=== PATIENT | male | born 1960 | race Caucasian/White ===

== ENCOUNTER 2023-09-20 14:09 | Inpatient (IN) | payer MEDICARE, SELFPAY ==
--- NOTE | ~2023-09-20 | CT_ITS ---
EXAMINATION: CT ANGIOGRAM HEAD CT ANGIOGRAM NECK CLINICAL INFORMATION: Reason for Exam right sided weakness COMPARISON: Same-day CT head TECHNIQUE: Initial noncontrast vp director of creative strategy imaging of the head and neck was performed. Comparison is made with noncontrast head CT from earlier today. Test bolus sequences followed by intravenous administration 70 mL of Omnipaque 350. Helical imaging was performed in the axial plane from the aortic arch to the skull vertex. Delayed postcontrast imaging of the head was also performed. The data was processed at the manufacturing technologist's workstation for generation of MIP sequences. Angled MIPs and volume rendered reformatted images were also generated at an offline 3D workstation. Stenoses are assessed in accordance with Chen et al. Quantification of Carotid Stenosis on CT Angiography. AJR 2006. 27(1):13-19. This CT examination was performed using dose optimization techniques as appropriate, variously including the following: *Automated exposure control *Adjustment of mA and/or kV according to patient size (this includes techniques or standardized protocols for targeted exams where dose is matched to indication/reason for exam; i.e. extremities or head) *Use of iterative reconstruction technique DLP: 1640.28 mGy-cm mGy-cm FINDINGS: CT HEAD: No abnormal intracranial enhancement. Please see separately dictated CT scan head for full intracranial findings. CTA HEAD: Diffuse mild ectasia and tortuosity. Anterior circulation: Right internal carotid artery: No hemodynamically significant stenosis. Right middle cerebral artery: No hemodynamically significant stenosis. Right anterior cerebral artery: Diminutive A1 segment. Left internal carotid artery: No hemodynamically significant stenosis. Left middle cerebral artery: No hemodynamically significant stenosis. Left anterior cerebral artery: No hemodynamically significant stenosis. Posterior circulation: Right vertebral artery: No hemodynamically significant stenosis. Left vertebral artery: No hemodynamically significant stenosis. Basilar artery: No hemodynamically significant stenosis. Right posterior cerebral artery: No hemodynamically significant stenosis. Left posterior cerebral artery: No hemodynamically significant stenosis. No high flow vascular malformation or significant aneurysmal dilatation is visualized. The major dural venous sinuses are grossly within normal limits given arterial technique. CTA NECK: Aortic arch: Normal anatomy. Tortuosity and ectasia of the great vessel origins. Right common carotid artery: Motion degraded. Right proximal internal carotid artery: No hemodynamically significant stenosis. Right mid/distal internal carotid artery: Motion degraded. No definite flow-limiting stenosis. Left common carotid artery: Motion degraded. Left proximal internal carotid artery: Motion degraded. Short segment retropharyngeal course. Left mid/distal internal carotid artery: No hemodynamically significant stenosis. Right vertebral artery: Portions of the V1 and V2 segment are not well evaluated given motion. The nondegraded aspects are patent. Left vertebral artery: Portions of the V1 and V2 segments are not well evaluated given motion. The nondegraded aspects are patent. 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 Multilevel degenerative changes of cervical spine with at least moderate canal stenosis at C5-C6 and C6-C7. CT/CT angio head neck stroke IMPRESSION: CTA NECK: Suboptimal evaluation of portions of the cervical carotid and vertebral artery secondary to motion degradation. Preserved flow extending intracranially. No flow-limiting stenosis in the by degraded aspects of the cervical vasculature. Multilevel degenerative changes of cervical spine with areas of at least moderate canal stenosis at C5-C6 and C6-C7. If there is symptomatology referrable to this region, cervical spine MRI is recommended for further evaluation. CTA HEAD: No proximal vessel occlusion or high-grade stenosis. This critical result was discussed with Dr. Hawthorne at 3:15 PM hours on 09/20/2023. It was ascertained that the content and urgency of the report was understood at the time of direct communication.
--- NOTE | ~2023-09-20 | XR_ITS ---
EXAMINATION: XR CHEST 2:39 PM CLINICAL INFORMATION: Right-sided weakness COMPARISON: None available. TECHNIQUE: AP portable upright view of the chest was obtained. FINDINGS: No significant abnormality is noted involving the heart, lungs, mediastinum, bony thorax or soft tissues. XR/XR chest 1V IMPRESSION: Grossly clear chest x-ray
--- NOTE | ~2023-09-20 | CT_ITS ---
EXAMINATION: CT HEAD WITHOUT CONTRAST (STROKE PROTOCOL) CLINICAL INFORMATION: Stroke protocol. Right-sided weakness. COMPARISON: None available. TECHNIQUE: Contiguous axial imaging was performed from the skull base to vertex without intravenous administration of contrast. This CT examination was performed using dose optimization techniques as appropriate, variously including the following: *Automated exposure control *Adjustment of mA and/or kV according to patient size (this includes techniques or standardized protocols for targeted exams where dose is matched to indication/reason for exam; i.e. extremities or head) *Use of iterative reconstruction technique DLP: 826 mGy-cm FINDINGS: No acute intracranial hemorrhage. No mass effect or midline shift. No parenchymal lesion. The weinstein-white differentiation is maintained. No extra-axial fluid collection. Symmetric mild hyperdensity within the basilar vessels without asymmetric density or clear dense MCA sign. The ventricles and sulci are unremarkable. The basal cisterns are patent. The calvarium is intact. The visualized paranasal sinuses and mastoid air cells are clear. CT/CT head for stroke IMPRESSION: No acute intracranial hemorrhage or mass effect. This critical result was discussed with Dr. Hawthorne at 2:37 PM hours on 09/20/2023. It was ascertained that the content and urgency of the report was understood at the time of direct communication.
--- NOTE | 2023-09-20 14:15 | ECG_ITS ---
Test Reason : ?STROKE Blood Pressure : / mmHG Vent. Rate : 077 BPM Atrial Rate : 077 BPM P-R Int : 222 ms QRS Dur : 150 ms QT Int : 448 ms P-R-T Axes : 016 -57 084 degrees QTc Int : 506 ms Sinus rhythm with 1st degree A-V block with occasional Premature ventricular complexes Left axis deviation Left ventricular hypertrophy with QRS widening and repolarization abnormality ( R in aVL , Daryn product , Romhilt-Camargo ) Abnormal ECG No previous ECGs available Referred By: Demetria Hawthorne Electronically Signed By:GIACOMO DIAMOND
--- NOTE | 2023-09-20 14:19 | ED_ITS ---
HPI - Neuro Symptoms/Deficit General Chief Complaint: Stroke Stated Complaint: STROKE LIKE SYMPTOMS Time Seen by Provider: 09/20/23 14:14 History of Present Illness HPI Narrative: Patient is a 63-year-old male with no significant past medical record here at [facility]. Patient admits to drinking alcohol today. Was noted by family to have slurred speech. Also had right-sided facial droop. Last time patient was unknown. Patient was found half an hour ago. There is no chest pain. No shortness of breath. No diaphoresis. Has bilateral leg weakness. Has a history of diabetes. Patient's sugar was checked to be over 100. Patient denies any fever chills. No coughing or congestion or upper respiratory symptoms. No diaphoresis. Related Data Allergies Allergy/AdvReac Type Severity Reaction Status Date / Time No Known Allergies Allergy Verified 09/20/23 14:40 Review of Systems 2 Review of Systems: Positive right-sided weakness positive slight slurred speech Yes all other systems are reviewed and are negative [facility] Past Medical History Attestation statement: The following information was validated with the patient. Source: unable to obtain Social History Social History Alcohol intake: current Alcohol intake frequency: 3 or more drinks per day Alcohol type: beer and hard liquor Smoked in Last 30 Days: No Use of substances other than those prescribed or required for medical reasons: No Advance Directives: No Advance Directives Information Provided: No Physical Exam 2 Vital Signs: Vital Signs: Last Vital Signs Temp 97.9 F 09/20/23 15:15 Pulse 67 09/20/23 15:15 Resp 16 09/20/23 15:15 BP 149/75 H 09/20/23 15:15 Pulse Ox 95 09/20/23 15:15 O2 Del Method Nasal Cannula 09/20/23 15:15 O2 Flow Rate 2 09/20/23 15:15 BMI result Body Mass Index 37.2 Appearance: Alert. No acute distress. Eyes: Pupils equal, round and reactive to light. ENT: Pharynx normal. Neck: Normal inspection. Neck supple. No lymph nodes noted. No crepitus CVS: Normal heart rate and rhythm. Pulses normal. Normal S1 and S2 Respiratory: No respiratory distress. Breath sounds normal. No Wheezing. No rales Abdomen: Soft and nontender. No rigidity. No distention. good BS x4 Skin: Skin warm and dry. Normal skin color. Normal skin turgor. Extremities: No lower extremity edema. Neurovascular intact to all extremities. No Lacerations. No Rash Neuro: Oriented X 3. Slightly slurred speech. There is no drift noted. Strength are equal bilateral upper extremity. [id number] intact. Bilateral lower extremities weak. There is no appreciable facial droop noted. Medications Administered Discontinued Medications Generic Name Dose Route Start Last Admin Trade Name Connie PRN Reason Stop Dose Admin Iohexol 70 ml 09/20/23 14:43 09/20/23 14:43 Iohexol 350 Mg/Ml 100 Ml Infus..Btl IV 09/20/23 14:44 70 ml ONCE ONE Administration Medical Decision Making Medical Decision Making [facility] Narrative: Patient 63 years old status presents today with having drank some alcohol. Was noted by family to be slurred. Unsure as to the exact last known well time. Was found approximately half an hour prior. Patient was noted by EMS to have a slight drift on the right side. A my exam the upper extremities are equal. There has no facial droop noted. Patient's bilateral lower extremity was weak. Patient's sugar was normal there is no evidence for hypoglycemia. I reviewed patient's CT scan of the head which was grossly negative for any acute evidence of bleeding. I discussed the CT scan results with the radiologist. He reported the CT scan was grossly negative for bleeding. CTA of the head and neck is still pending. I attempted to contact patient's family to verify the last known well time. The phone number that is in the system is patient's sister Ms. Singleton it is out of service. At 03:20 p.m. patient's case discussed with the radiologist. CTA showed no large vessel occlusion. Still no family showed up there is no additional phone number that is available. Did not feel patient is a good candidate for tPA as we do not have a specific time of onset. Patient is not a candidate clot retrieval as there is no large vessel occlusion. Currently in stable condition. Patient's alcohol level came back at 180 on re-examination patient grossly shows facial symmetry. There has no drift. Question TIA versus just EtOH. Case discussed with hospitalist. Will admit for observation overnight. Differential Diagnosis Differential Diagnoses: The differential diagnosis associated with the presentation includes Alcohol intoxication, TIA Admission/Observation Consideration of admission/observation: Escalation of care including admission/observation considered Consult Healthcare Provider Management of the patient was discussed with: Hospitalist Lab Data MDM Lab Attestation statement: I reviewed the patient's lab results. 09/20/23 15:13 09/20/23 15:13 Labs: Lab Results 09/20/23 09/20/23 09/20/23 Range/Units 14:16 14:43 15:13 WBC 9.6 (4.8-10.8) X10*3/uL RBC 4.98 (4.60-5.80) X10*6/uL Hgb 14.7 (14.0-18.0) g/dl Hct 43.8 (42.0-52.0) % MCV 88.0 (80.0-98.0) fL MCH 29.5 (27.0-33.0) pg MCHC 33.6 (31.0-36.0) g/dl RDW 13.7 (11.0-16.0) % Plt Count 205 (160-400) X10*3/uL MPV 10.3 (9.4-12.4) fL Immature Gran % (Auto) 0.7 H (0.0-0.4) % Neut % (Auto) 68.4 (45-73) % Lymph % (Auto) 21.5 (20-40) % [place] % (Auto) 5.6 (2-11) % Eos % (Auto) 2.8 (0-4) % Baso % (Auto) 1.0 (0-2) % Lymph # (Auto) 2.1 (1.2-4.9) X10*3/uL [place] # (Auto) 0.5 (0.1-1.2) X10*3/uL Eos # (Auto) 0.3 (0.0-0.4) X10*3/uL Baso # (Auto) 0.1 (0.0-0.2) X10*3/uL Abs Immat Gran (auto) 0.07 H (0.00-0.03) X10*3/uL Absolute Neuts (auto) 6.5 (2.0-8.3) x10*3/uL Absolute Nucleated RBC 0.000 (0.0-0.012) X10*3/uL Nucleated RBC % (auto) 0.0 (0.0-0.2) /100WBC PT 12.4 (11.1-13.3) SEC Whole Blood PT 14.2 H (11.1-13.5) sec INR 1.0 (0.9-1.1) Whole Blood INR 1.0 (0.9-1.1) APTT 30.6 (26.0-36.8) SEC Sodium 138 (135-145) mmol/L Potassium 4.7 (3.3-5.1) mmol/L Chloride 104 (96-108) mmol/L Carbon Dioxide 23 (22-29) mmol/L Anion Gap 16 (12-20) BUN 12 (9-16) mg/dL Creatinine 0.84 (0.5-1.4) mg/dL Estim Creat Clear Calc 128.0 Estimated GFR > 60 POC Glucose 122 H (60-115) mg/dL Random Glucose 120 H (60-115) mg/dL Calcium 9.1 (8.4-10.2) mg/dL Phosphorus 2.8 (2.7-4.5) mg/dL Magnesium 2.2 (1.6-2.6) mg/dL Total Creatine Kinase 190 H (38-174) U/L Troponin I High Sens 6.9 (<3.5-35.0) ng/L Urine Color Yellow Urine Appearance Clear Urine pH 5.5 (5.0-9.0) Ur Specific [place] 1.010 (1.005-1.025) Urine Protein Negative (Neg-Trace) mg/dL Urine Glucose (UA) Negative (Negative) mg/dL Urine Ketones Negative (Negative) mg/dL Urine Blood Negative (Negative) Urine Nitrite Negative (Negative) Ur Leukocyte Esterase Negative (Negative) Urine Opiates Screen Not Detected (Not Detect) Urine Fentanyl Screen Not Detected (Not Detect) Ur Barbiturates Screen Not Detected (Not Detect) Ur Phencyclidine Scrn Not Detected (Not Detect) Ur Amphetamines Screen Not Detected (Not Detect) U Benzodiazepines Scrn Not Detected (Not Detect) Urine Cocaine Screen Not Detected (Not Detect) U Marijuana (THC) Screen Not Detected (Not Detect) Ethyl Alcohol 182 mg/dL Independent Interpretation I performed an independent interpretation of an: EKG (Sinus heart rate is 80) and CT Scan (CT scan of the head was grossly negative for any acute evidence of bleeding) Radiology Impression Discussion of test interpretation with radiology: I discussed test interpretation with the radiologist Radiologist Impression: I discussed with the radiology's about the CT head and CTA findings. Independent Historian Clinical information obtained from an independent historian. History obtained from or confirmed by: EMS NIH Stroke Scale Internal: Other Time: 14:22 Level of Consciousness: Alert Level of Consciousness Questions: Answers both questions correctly Level of Consciousness Commands: Performs both tasks correctly Best Gaze: Normal Visual: No visual loss Facial Palsy: Normal Motor Arm (Right): No drift Motor Arm (Left): No drift Motor Leg (Right): Some effort against gravity Motor Leg (Left): Some effort against gravity Limb Ataxia: Absent Sensory: Normal Best Language: No aphasia Dysarthia: Normal Extinction and Inattention: No abnormality Score: 4 Discharge Plan Discharge Clinical Impression: Transient cerebral ischemia, Alcohol intoxication Patient Disposition: Admitted As Inpatient
[2023-09-20 14:20] LABS: Glucose, Whole Blood 122 mg/dL (60-115)
[2023-09-20 14:40] VITALS: BP 142/98; BP 149/81; PULSE 75; PULSE 94; RESP 16; TEMP 36.9; O2SAT 91; O2SAT 95; BMI 37.2
--- NOTE | 2023-09-20 14:40 | PC.NURSE ---
patsya from home d/t stroke alert. 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 +right sided weakness, +pronator drift, decreased sensation in right side. pt's family states slurred speech and that he also had 3 beers prior to coming in. pt denies dizziness/lightheadedness/headache/change in vision. pt to CT upon ED arrival. 20gIV placed in the right AC for CTA to be completed. plan of care ongoing.
[2023-09-20] MEDS: iohexoL 350 MG/ML 100 ML INFUS..BTL 70 ML IV (14:43)
[2023-09-20 14:47] LABS: Prothrombin Time Whole Bld POC 14.2 sec (11.1-13.5)
[2023-09-20 15:15] VITALS: BP 149/75; PULSE 67; RESP 16; TEMP 36.6; O2SAT 95
--- NOTE | 2023-09-20 15:17 | PC.NURSE ---
pt returned from CT at this time. pt incontinent of urine. pt cleaned/fresh pads applied. pt changed into hospital attire. vss and up to date. 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 20gIV placed in the left hand - labs/urine obtained and sent to lab. ekg performed by tech. pt placed on 2L via NC - resting at 95%. no sob/wob noted. pt seemingly sleepy. continuously falling asleep/snoring. pt easily arousable to verbal stimuli. cms intact. face symmetrical. slight slur in speech noted when conversating w/ pt. 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 pronator drift no longer present. strength equal bilaterally. pt passed nursing swallow eval w/o any difficulty. plan of care ongoing at this time. call orona placed within reach.
[2023-09-20 15:22] LABS: MANUAL DIFF FLAG NO
[2023-09-20 15:24] LABS: Appearance Urine Clear; Color Urine Yellow; Glucose Urine UA Negative (Negative); Leukocyte Esterase Urine Negative (Negative); Nitrite Urine Negative (Negative); PH 5.5 (5.0-9.0); Urine Blood Negative (Negative); Urine Ketones Negative (Negative); Urine Protein Negative (Neg-Trace)
[2023-09-20 15:32] LABS: Basophils Absolute Auto 0.1 X10*3/uL (0.0-0.2); Eosinophils Absolute Auto 0.3 X10*3/uL (0.0-0.4); Eosinophils Percent Auto 2.8 % (0-4); Hematocrit 43.8 % (42.0-52.0); Hemoglobin 14.7 g/dl (14.0-18.0); Imm Gran Abs Auto 0.07 X10*3/uL (0.00-0.03); Imm Gran Pct Auto 0.7 % (0.0-0.4); Lymphocytes Absolute Auto 2.1 X10*3/uL (1.2-4.9); Lymphocytes Percent Auto 21.5 % (20-40); Mean Corpuscular HGB Conc 33.6 g/dl (31.0-36.0); Mean Corpuscular Hemoglobin 29.5 pg (27.0-33.0); Mean Platelet Volume 10.3 fL (9.4-12.4); Monocytes Absolute Auto 0.5 X10*3/uL (0.1-1.2); Monocytes Percent Auto 5.6 % (2-11); Neutrophils Absolute Auto 6.5 x10*3/uL (2.0-8.3); Neutrophils Percent Auto 68.4 % (45-73); Platelet Count 205 X10*3/uL (160-400); Red Blood Count 4.98 X10*6/uL (4.60-5.80); Red Cell Distribution Width 13.7 % (11.0-16.0); White Blood Count 9.6 X10*3/uL (4.8-10.8)
[2023-09-20 15:33] LABS: Prothrombin Time 12.4 SEC (11.1-13.3)
[2023-09-20 15:35] LABS: Partial Thromboplastin Time 30.6 SEC (26.0-36.8)
[2023-09-20 15:39] LABS: Amphetamine Screen Urine Not Detected (Not Detect); Barbiturates, Urine Not Detected (Not Detect); Benzodiazepines Screen Urine Not Detected (Not Detect); Cannabinoid Screen Urine Not Detected (Not Detect); Cocaine Screen Urine Not Detected (Not Detect); Fentanyl, urine Not Detected (Not Detect); Opiate Screen Urine Not Detected (Not Detect); Phencyclidine Screen Urine Not Detected (Not Detect)
[2023-09-20 15:46] LABS: Anion Gap 16 (12-20); Blood Urea Nitrogen 12 mg/dL (9-16); Calcium 9.1 mg/dL (8.4-10.2); Carbon Dioxide 23 mmol/L (22-29); Chloride 104 mmol/L (96-108); Estimated Glomerular Filt Rate > 60; Ethanol 182 mg/dL; Glucose Random 120 mg/dL (60-115); Magnesium 2.2 mg/dL (1.6-2.6); Phosphorus 2.8 mg/dL (2.7-4.5); Potassium 4.7 mmol/L (3.3-5.1); Sodium 138 mmol/L (135-145)
[2023-09-20 15:49] LABS: Troponin-I High Sensitivity 6.9 ng/L (<3.5-35.0)
[2023-09-20 16:15] VITALS: BP 141/65; PULSE 70; RESP 23; TEMP 37; O2SAT 95
[2023-09-20 16:46] LABS: Stroke Lab Use COMPLETE
--- NOTE | 2023-09-20 16:49 | PC.NURSE ---
pt and family member spoke w/ hospitalist in regards to future plans. pt aware of plans going forward in regards to be admitted. resting comfortably in no apparent distress. respirations remain even and unlabored. family bedside for support. call orona placed within reach.
--- NOTE | 2023-09-20 17:00 | P.HPHOSP_ITS ---
History of Present Illness Date of Service: 09/20/23 Attending physician on admission: Antonino Hawley Chief Complaint: ams, right arm weakness, slurred speech 63 year old male with PILY noncompliant with cpap and alcohol use disorder presented to the ED via EMS for evaluation of altered mental status, R sided weakness, R facial droop, slurred speech. Last known well time unclear. Pt does not recall events. 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 He does have ongoing RUE weakness. His nephew is at bedside and reports one of his tenants went to check on the patient and he was found altered and called EMS. Per EMS, focal deficits as above reported. No prior history of CVA. On arrival, VSS, slightly hypertensive to 141/65 on admission. Hematology studies unremarkable. Renal function and electrolyte levels normal. Glucose 122. Troponin 6.9. Total CK 190. Urinalysis unremarkable. Urine tox screen negative. Ethyl alcohol level 182. CXR unremarkable. Head CT negative for any acute intracranial abnormality. CTA head/neck negative for any hemodynamically significant stenosis or large vessel occlusion. EKG shows sinus rhythm, rate 77 with first-degree AV rasheed block and occasional PVCs, no ST or depressions. Review of Systems 2 Review of Systems: General: No fevers, malaise, unintentional weight loss HEENT: No blurred vision, diplopia. No sore throat, nasal congestion, rhinorrhea, sinus pain, ear pain Cardiovascular: No chest pain, palpitations, or leg edema Respiratory: No shortness of breath, wheezing, cough GI: No abdominal pain, nausea, vomiting, diarrhea, constipation, melena, hematochezia : No dysuria, hematuria, increased urinary frequency, decreased urinary output MSK: No myalgia, back pain Neuro: No headaches, weakness, paresthesias Skin: No rashes or lesions [facility] Medical History (Updated 09/20/23 @ 17:26 by MIRANDA Haas) Alcohol use disorder Severe obesity PILY (obstructive sleep apnea) Social History Alcohol intake: current Alcohol intake frequency: 3 or more drinks per day Alcohol type: beer and hard liquor Patient Tobacco Use Status: Never used Tobacco Meds Allergies Allergy/AdvReac Type Severity Reaction Status Date / Time No Known Allergies Allergy Verified 09/20/23 14:40 Home Medications Medication Instructions Recorded Confirmed Last Taken Type acetaminophen 500 mg tablet 1,000 mg PO BID PRN Fever Or Pain 09/20/23 09/20/23 Unknown History Physical Exam 2 Vital Signs and Narrative: Vital Signs: Last Vital Signs Temp 98.6 F 09/20/23 16:15 Pulse 70 09/20/23 16:15 Resp 23 H 09/20/23 16:15 BP 141/65 H 09/20/23 16:15 Pulse Ox 95 09/20/23 16:15 O2 Del Method Nasal Cannula 09/20/23 16:15 O2 Flow Rate 2 09/20/23 16:15 BMI result Body Mass Index 37.2 Constitutional - Awake and Alert, No apparent distress Eyes - PERRLA, EOMI Cardiovascular - S1S2, RRR, No edema Respiratory - Normal lung expansion, Normal respiratory effort, No respiratory distress, CTA bilaterally Gastrointestinal - NT / ND; +BS; No rebound or guarding Extremities - no calf tenderness bilaterally, no swelling Skin - Warm/Dry Neurological - Alert & oriented x3, CN II-XII in tact, 3/5 strength RUE. 5/5 strength LUE and BLE, +slight R pronator drift. 2+ patellar reflexes, downgoing babinski Psychological - Appropriate affect Results Labs 09/20/23 15:13 09/20/23 15:13 Labs: Laboratory Results - last 24 hr 09/20/23 09/20/23 09/20/23 14:16 14:43 15:13 MCV 88.0 MCH 29.5 MCHC 33.6 RDW 13.7 Plt Count 205 MPV 10.3 Immature Gran % (Auto) 0.7 H Neut % (Auto) 68.4 Lymph % (Auto) 21.5 [place] % (Auto) 5.6 Eos % (Auto) 2.8 Baso % (Auto) 1.0 Lymph # (Auto) 2.1 [place] # (Auto) 0.5 Eos # (Auto) 0.3 Baso # (Auto) 0.1 Abs Immat Gran (auto) 0.07 H Absolute Neuts (auto) 6.5 Absolute Nucleated RBC 0.000 Nucleated RBC % (auto) 0.0 PT 12.4 Whole Blood PT 14.2 H INR 1.0 Whole Blood INR 1.0 APTT 30.6 Anion Gap 16 Estim Creat Clear Calc 128.0 Estimated GFR > 60 POC Glucose 122 H Random Glucose 120 H Calcium 9.1 Phosphorus 2.8 Magnesium 2.2 Total Creatine Kinase 190 H Troponin I High Sens 6.9 Urine Color Yellow Urine Appearance Clear Urine pH 5.5 Ur Specific [place] 1.010 Urine Protein Negative Urine Glucose (UA) Negative Urine Ketones Negative Urine Blood Negative Urine Nitrite Negative Ur Leukocyte Esterase Negative Urine Opiates Screen Not Detected Urine Fentanyl Screen Not Detected Ur Barbiturates Screen Not Detected Ur Phencyclidine Scrn Not Detected Ur Amphetamines Screen Not Detected U Benzodiazepines Scrn Not Detected Urine Cocaine Screen Not Detected U Marijuana (THC) Screen Not Detected Ethyl Alcohol 182 Imaging Radiologist's Impressions: Impressions Head CT 09/20/23 14:25 IMPRESSION: No acute intracranial hemorrhage or mass effect. This critical result was discussed with Dr. Hawthorne at 2:37 PM hours on 09/20/2023. It was ascertained that the content and urgency of the report was understood at the time of direct communication. Head/Neck CTA 09/20/23 14:52 IMPRESSION: CTA NECK: Suboptimal evaluation of portions of the cervical carotid and vertebral artery secondary to motion degradation. Preserved flow extending intracranially. No flow-limiting stenosis in the by degraded aspects of the cervical vasculature. Multilevel degenerative changes of cervical spine with areas of at least moderate canal stenosis at C5-C6 and C6-C7. If there is symptomatology referrable to this region, cervical spine MRI is recommended for further evaluation. CTA HEAD: No proximal vessel occlusion or high-grade stenosis. This critical result was discussed with Dr. Hawthorne at 3:15 PM hours on 09/20/2023. It was ascertained that the content and urgency of the report was understood at the time of direct communication. Chest X-Ray 09/20/23 14:54 IMPRESSION: Grossly clear chest x-ray Assessment and Plan (1) CVA (cerebral vascular accident): Status: Acute (2) Alcohol intoxication: Status: Acute Plan 63 year old male with PILY noncompliant with cpap and alcohol use disorder admitted for CVA #Acute CVA -Head CT negative for acute intracranial abnormality. CTA head/neck negative for LVO or hemodynamically significnat stenosis -Ongoing RUE weakness/pronator drift. Certain LKWT unknown. Not a TNK candidate -MRI brain ordered -asa 324mg now, 81mg asa daily -lipid profile pending, atorvastatin 80mg daily -check hgb a1c -passed bedside swallow eval. stroke edu -neuro consult -monitor on tele #Alcohol use disorder with acute intoxication -ethyl etoh 182 -monitor on ciwa, initiate phenobarb per protocol if scoring on ciwa -thiamine, folic acid -addiction consult #PILY -counseled on importance of cpap for stroke prevention #Severe obesity with BMI >37 -weight loss efforts encouraged dvt prophylaxis- heparin full code pt requires inpt stay due to acute cva with ongoing focal deficits requiring close neurological monitoring, further imaging, and expert consultation Quality Stroke Does the patient have a stroke diagnosis?: Yes Reason for No Anti-thrombotic by Day Two: Not indicated VTE Prior VTE?: No VTE Risk Level:: Medical - moderate - high VTE Device Contraindication: Treatment Not Indicated VTE Drug Contraindication: N/A - Med Ordered
--- NOTE | 2023-09-20 17:02 | PHA.MEDREC ---
Pharmacy Consult ? Medication Reconciliation Pharmacy has completed the medication reconciliation.
[2023-09-20 17:16] LABS: Cholesterol 157 mg/dL (<200); HDL Cholesterol 42 mg/dL (>40); LDL Cholesterol Calculated 74 mg/dL (<100); Triglycerides 209 mg/dL (<150)
[2023-09-20 17:38] VITALS: BP 149/83; PULSE 65; RESP 16; TEMP 37.1; O2SAT 94
[2023-09-20] MEDS: Folic Acid 1 MG TABLET PO (17:42)
[2023-09-20] MEDS: Aspirin 325 MG TABLET PO (17:42)
[2023-09-20] MEDS: Thiamine HCL 100 MG in 0.9 % Sodium Chloride 100 ML 202 MG IV (17:43)
[2023-09-20] MEDS: Heparin Sodium,Porcine 5,000 UNIT/ML VIAL 5000 UNIT SUBCUT (17:43)
--- NOTE | 2023-09-20 17:49 | PC.NURSE ---
vss and up to date. 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 pt denies pain. medication administered per provider order. pt resting comfortably in no apparent distress. pt waiting for bed assignment at this time. call orona placed within reach.
[2023-09-20 23:19] VITALS: BP 170/80; PULSE 75; RESP 19; TEMP 36.7; O2SAT 92
--- NOTE | 2023-09-20 23:32 | PC.NURSE ---
Pt aox4 resting at the bedside. BP 170/80 otherwise stable. Able to follow commands and make needs known. Speech is clear. Reports no pain at this time. Assistance provide to the commode to move the bowels. Stroke pamphlet provided. Monitoring is ongoing.
[2023-09-21] VITALS (7 sets, daily range): BP systolic 115–212; BP diastolic 67–116; PULSE 60–87; RESP 15–20; TEMP 36.8–37.2; O2SAT 93–95
[2023-09-21] MEDS: 0.9 % Sodium Chloride Flush 3 ML SYRINGE IVFLUSH ×3 (03:39→18:20)
[2023-09-21] MEDS: Heparin Sodium,Porcine 5,000 UNIT/ML VIAL 5000 UNIT SUBCUT ×2 (04:08→18:20)
[2023-09-21 05:18] LABS: MANUAL DIFF FLAG NO
[2023-09-21 05:20] LABS: Basophils Absolute Auto 0.1 X10*3/uL (0.0-0.2); Basophils Percent Auto 0.9 % (0-2); Eosinophils Absolute Auto 0.3 X10*3/uL (0.0-0.4); Eosinophils Percent Auto 2.8 % (0-4); Hemoglobin 15.1 g/dl (14.0-18.0); Imm Gran Abs Auto 0.09 X10*3/uL (0.00-0.03); Imm Gran Pct Auto 0.8 % (0.0-0.4); Lymphocytes Absolute Auto 2.4 X10*3/uL (1.2-4.9); Lymphocytes Percent Auto 20.5 % (20-40); Mean Corpuscular HGB Conc 33.6 g/dl (31.0-36.0); Mean Corpuscular Hemoglobin 29.8 pg (27.0-33.0); Mean Corpuscular Volume 88.9 fL (80.0-98.0); Mean Platelet Volume 9.8 fL (9.4-12.4); Platelet Count 187 X10*3/uL (160-400); Red Blood Count 5.06 X10*6/uL (4.60-5.80); Red Cell Distribution Width 14.1 % (11.0-16.0); White Blood Count 11.9 X10*3/uL (4.8-10.8)
[2023-09-21 05:36] LABS: Anion Gap 12 (12-20); Blood Urea Nitrogen 12 mg/dL (9-16); Calcium 9.3 mg/dL (8.4-10.2); Carbon Dioxide 26 mmol/L (22-29); Chloride 107 mmol/L (96-108); Creatinine Clr Calc Pharmacy 131.1; Estimated Glomerular Filt Rate > 60; Glucose Random 101 mg/dL (60-115); Potassium 4.2 mmol/L (3.3-5.1); Sodium 141 mmol/L (135-145)
[2023-09-21 06:56] LABS: Estimated Average Glucose 103 mg/dL; Hemoglobin A1c % 5.2 % (<6.0)
[2023-09-21] MEDS: Aspirin Enteric Coated 81 MG TABLET.DR PO (07:50)
[2023-09-21] MEDS: Atorvastatin Calcium 80 MG TABLET PO (07:50)
[2023-09-21] MEDS: Thiamine HCL 100 MG in 0.9 % Sodium Chloride 100 ML 202 MG IV (07:50)
[2023-09-21] MEDS: Folic Acid 1 MG TABLET PO (07:50)
--- NOTE | 2023-09-21 10:59 | HO.PM.IMPN ---
Subjective Subjective Date of Service: 09/21/23 Interval History: some right shoulder weakness, no withdrawal symptoms Physical Exam Vital Signs: Vital Signs: Last Vital Signs Temp 98.2 F 09/21/23 07:56 Pulse 70 09/21/23 07:56 Resp 15 09/21/23 07:56 BP 115/70 09/21/23 07:56 Pulse Ox 94 09/21/23 07:56 O2 Del Method Room Air 09/21/23 07:56 O2 Flow Rate 2 09/20/23 17:38 BMI result Body Mass Index 37.2 General: AO X 3, no acute distress Resp: CTA bilateral, no accessory muscles used CVS: S1,S2,RRR GI: soft, non tender, non distended Neuro: motor grossly intact, alert Psych: appropriate affect, appropriate insight Objective Data Active Medications Acetaminophen (Acetaminophen 325 Mg Tablet) 650 mg PO Q6H PRN PRN Reason: Pain, Mild (Pain Scale 1-3) Aspirin (Aspirin Enteric Coated 81 Mg Tablet.) 81 mg PO DAILY [facility] Last Admin: 09/21/23 07:50 Dose: 81 mg Documented By: SHANNON Atorvastatin Calcium (Atorvastatin Calcium 80 Mg Tablet) 80 mg PO DAILY [facility] Last Admin: 09/21/23 07:50 Dose: 80 mg Documented By: SHANNON Folic Acid (Folic Acid 1 Mg Tablet) 1 mg PO DAILY [facility] Last Admin: 09/21/23 07:50 Dose: 1 mg Documented By: SHANNON Heparin Sodium (Porcine) (Heparin Sodium,Porcine 5,000 Unit/Ml Vial) 5,000 unit SUBCUT Q12H [facility] Last Admin: 09/21/23 04:08 Dose: 5,000 unit Documented By: MAURI Thiamine HCl 100 mg/ Sodium (Chloride) 101 mls @ 202 mls/hr IV DAILY [facility] Last Infusion: 09/21/23 09:00 Dose: Infused Documented By: SHANNON Ondansetron HCl (Ondansetron Hcl 4 Mg/2 Ml Vial) 4 mg IVPUSH Q8H PRN PRN Reason: Nausea and Vomiting Senna (Sennosides 8.6 Mg Tablet) 17.2 mg PO BEDTIME PRN PRN Reason: Constipation Sodium Chloride (0.9 % Sodium Chloride Flush 3 Ml Syringe) 3 ml IVFLUSH QSHIFT [facility] Last Admin: 09/21/23 07:55 Dose: 3 ml Documented By: SCOC Labs 09/21/23 05:06 09/21/23 05:06 Labs: Laboratory Results - last 24 hr 09/20/23 09/20/23 09/20/23 14:16 14:43 15:13 MCV 88.0 MCH 29.5 MCHC 33.6 RDW 13.7 Plt Count 205 MPV 10.3 Immature Gran % (Auto) 0.7 H Neut % (Auto) 68.4 Lymph % (Auto) 21.5 [place] % (Auto) 5.6 Eos % (Auto) 2.8 Baso % (Auto) 1.0 Lymph # (Auto) 2.1 [place] # (Auto) 0.5 Eos # (Auto) 0.3 Baso # (Auto) 0.1 Abs Immat Gran (auto) 0.07 H Absolute Neuts (auto) 6.5 Absolute Nucleated RBC 0.000 Nucleated RBC % (auto) 0.0 PT 12.4 Whole Blood PT 14.2 H INR 1.0 Whole Blood INR 1.0 APTT 30.6 Anion Gap 16 Estim Creat Clear Calc 128.0 Estimated GFR > 60 POC Glucose 122 H Random Glucose 120 H Estimat Average Glucose 103 Hemoglobin A1c % 5.2 Calcium 9.1 Phosphorus 2.8 Magnesium 2.2 Total Creatine Kinase 190 H Troponin I High Sens 6.9 Triglycerides 209 H Cholesterol 157 LDL Cholesterol, Calc 74 HDL Cholesterol 42 Urine Color Yellow Urine Appearance Clear Urine pH 5.5 Ur Specific [place] 1.010 Urine Protein Negative Urine Glucose (UA) Negative Urine Ketones Negative Urine Blood Negative Urine Nitrite Negative Ur Leukocyte Esterase Negative Urine Opiates Screen Not Detected Urine Fentanyl Screen Not Detected Ur Barbiturates Screen Not Detected Ur Phencyclidine Scrn Not Detected Ur Amphetamines Screen Not Detected U Benzodiazepines Scrn Not Detected Urine Cocaine Screen Not Detected U Marijuana (THC) Screen Not Detected Ethyl Alcohol 182 09/21/23 05:06 MCV 88.9 MCH 29.8 MCHC 33.6 RDW 14.1 Plt Count 187 MPV 9.8 Immature Gran % (Auto) 0.8 H Neut % (Auto) 67.0 Lymph % (Auto) 20.5 [place] % (Auto) 8.0 Eos % (Auto) 2.8 Baso % (Auto) 0.9 Lymph # (Auto) 2.4 [place] # (Auto) 1.0 Eos # (Auto) 0.3 Baso # (Auto) 0.1 Abs Immat Gran (auto) 0.09 H Absolute Neuts (auto) 8.0 Absolute Nucleated RBC 0.000 Nucleated RBC % (auto) 0.0 PT Whole Blood PT INR Whole Blood INR APTT Anion Gap 12 Estim Creat Clear Calc 131.1 Estimated GFR > 60 POC Glucose Random Glucose 101 Estimat Average Glucose Hemoglobin A1c % Calcium 9.3 Phosphorus Magnesium Total Creatine Kinase Troponin I High Sens Triglycerides Cholesterol LDL Cholesterol, Calc HDL Cholesterol Urine Color Urine Appearance Urine pH Ur Specific [place] Urine Protein Urine Glucose (UA) Urine Ketones Urine Blood Urine Nitrite Ur Leukocyte Esterase Urine Opiates Screen Urine Fentanyl Screen Ur Barbiturates Screen Ur Phencyclidine Scrn Ur Amphetamines Screen U Benzodiazepines Scrn Urine Cocaine Screen U Marijuana (THC) Screen Ethyl Alcohol Assessment and Plan (1) CVA (cerebral vascular accident): Status: Acute Plan 63M PMH ania non complliant, obesity, etoh dependence presented wiht right sided weakness right sided weakness rule out dva folllow up mri, neuro etoh dependence ciwa ania non complaint obesity wegiht loss dvt prophylaxis - hep sq full code reason for continued hospitalization: awaiting mri Quality Stroke Does the patient have a stroke diagnosis?: Yes Reason for No Anti-thrombotic by Day Two: Not indicated VTE Prior VTE?: No VTE Risk Level:: Medical - moderate - high VTE Device Contraindication: Treatment Not Indicated VTE Drug Contraindication: N/A - Med Ordered
--- NOTE | 2023-09-21 11:37 | PC.NURSE ---
pt to mri via stretcher.
--- NOTE | 2023-09-21 11:55 | P.DS_ITS ---
DS: Providers Provider Date of Service: 09/22/23 Date of admission: 09/20/23 16:46 Primary care physician: None Physician Consults: 09/20/23 16:57 Consult to Neurology Routine Consulting Provider: [facility] Reason for consultation: cva 09/20/23 17:27 Addiction Medicine Routine Consulting Provider: Addiction Covering Reason for consultation: etoh use d/o DS: Diagnosis Discharge Diagnosis (1) CVA (cerebral vascular accident): Status: Acute DS: Summary Hospital Course Hospital Course: from initial hpi: 63 year old male with PILY noncompliant with cpap and alcohol use disorder presented to the ED via EMS for evaluation of altered mental status, R sided weakness, R facial droop, slurred speech. Last known well time unclear. Pt does not recall events. 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 He does have ongoing RUE weakness. His nephew is at bedside and reports one of his tenants went to check on the patient and he was found altered and called EMS. Per EMS, focal deficits as above reported. No prior history of CVA. On arrival, VSS, slightly hypertensive to 141/65 on admission. Hematology studies unremarkable. Renal function and electrolyte levels normal. Glucose 122. Troponin 6.9. Total CK 190. Urinalysis unremarkable. Urine tox screen negative. Ethyl alcohol level 182. CXR unremarkable. Head CT negative for any acute intracranial abnormality. CTA head/neck negative for any hemodynamically significant stenosis or large vessel occlusion. EKG shows sinus rhythm, rate 77 with first-degree AV rasheed block and occasional PVCs, no ST or depressions. hospital course: Patient was admitted for right sided weakness to rule out CVA. CTA head and neck was unremarkable. He was started on aspirin statin. Plan was for MRI brain, however, patient refused. He was not interested in premedication prior to test. He will be referred for MRI brain as outpatient. For alcohol dependence patient did not demonstrate any withdrawal, abstinence is recommended. For PILY patient is noncompliant with CPAP. For obesity weight loss recommended. patient was noted to be hypertensive, started on losartan 50mg daily. Patient's weakness resolved and he will be discharged home. Time Attestation Discharge coordination time: Greater than 30 minutes Quality: Safe Use of Opioids Does Pt have an Active Cancer Diagnosis on the Problem List?: No Quality: Stroke Does the patient have a stroke diagnosis?: Yes Reason for No Anti-thrombotic at DC: N/A - Med Ordered Reason for No Anticoagulant at DC: Drug treatment not indicated Reason Not Initiating IV-Tpa: Drug treatment not indicated Reason for No Anti-thrombotic by Day Two: N/A - Med Ordered Reason for No Statin at DC: N/A - Med Ordered Physical Exam Vital Signs: Vital Signs: Last Vital Signs Temp 98.2 F 09/21/23 07:56 Pulse 70 09/21/23 07:56 Resp 15 09/21/23 07:56 BP 115/70 09/21/23 07:56 Pulse Ox 94 09/21/23 07:56 O2 Del Method Room Air 09/21/23 07:56 O2 Flow Rate 2 09/20/23 17:38 BMI result Body Mass Index 37.2 General: AO X 3, no acute distress Resp: CTA bilateral, no accessory muscles used CVS: S1,S2,RRR GI: soft, non tender, non distended Neuro: motor grossly intact, alert Psych: appropriate affect, appropriate insight DS: Data Data Completed and Pending Labs on day of discharge: Laboratory Results - last 24 hr 09/20/23 09/20/23 09/20/23 14:16 14:43 15:13 WBC 9.6 RBC 4.98 Hgb 14.7 Hct 43.8 MCV 88.0 MCH 29.5 MCHC 33.6 RDW 13.7 Plt Count 205 MPV 10.3 Immature Gran % (Auto) 0.7 H Neut % (Auto) 68.4 Lymph % (Auto) 21.5 [place] % (Auto) 5.6 Eos % (Auto) 2.8 Baso % (Auto) 1.0 Lymph # (Auto) 2.1 [place] # (Auto) 0.5 Eos # (Auto) 0.3 Baso # (Auto) 0.1 Abs Immat Gran (auto) 0.07 H Absolute Neuts (auto) 6.5 Absolute Nucleated RBC 0.000 Nucleated RBC % (auto) 0.0 PT 12.4 Whole Blood PT 14.2 H INR 1.0 Whole Blood INR 1.0 APTT 30.6 Sodium 138 Potassium 4.7 Chloride 104 Carbon Dioxide 23 Anion Gap 16 BUN 12 Creatinine 0.84 Estim Creat Clear Calc 128.0 Estimated GFR > 60 POC Glucose 122 H Random Glucose 120 H Estimat Average Glucose 103 Hemoglobin A1c % 5.2 Calcium 9.1 Phosphorus 2.8 Magnesium 2.2 Total Creatine Kinase 190 H Troponin I High Sens 6.9 Triglycerides 209 H Cholesterol 157 LDL Cholesterol, Calc 74 HDL Cholesterol 42 Urine Color Yellow Urine Appearance Clear Urine pH 5.5 Ur Specific [place] 1.010 Urine Protein Negative Urine Glucose (UA) Negative Urine Ketones Negative Urine Blood Negative Urine Nitrite Negative Ur Leukocyte Esterase Negative Urine Opiates Screen Not Detected Urine Fentanyl Screen Not Detected Ur Barbiturates Screen Not Detected Ur Phencyclidine Scrn Not Detected Ur Amphetamines Screen Not Detected U Benzodiazepines Scrn Not Detected Urine Cocaine Screen Not Detected U Marijuana (THC) Screen Not Detected Ethyl Alcohol 182 09/21/23 05:06 WBC 11.9 H RBC 5.06 Hgb 15.1 Hct 45.0 MCV 88.9 MCH 29.8 MCHC 33.6 RDW 14.1 Plt Count 187 MPV 9.8 Immature Gran % (Auto) 0.8 H Neut % (Auto) 67.0 Lymph % (Auto) 20.5 [place] % (Auto) 8.0 Eos % (Auto) 2.8 Baso % (Auto) 0.9 Lymph # (Auto) 2.4 [place] # (Auto) 1.0 Eos # (Auto) 0.3 Baso # (Auto) 0.1 Abs Immat Gran (auto) 0.09 H Absolute Neuts (auto) 8.0 Absolute Nucleated RBC 0.000 Nucleated RBC % (auto) 0.0 PT Whole Blood PT INR Whole Blood INR APTT Sodium 141 Potassium 4.2 Chloride 107 Carbon Dioxide 26 Anion Gap 12 BUN 12 Creatinine 0.82 Estim Creat Clear Calc 131.1 Estimated GFR > 60 POC Glucose Random Glucose 101 Estimat Average Glucose Hemoglobin A1c % Calcium 9.3 Phosphorus Magnesium Total Creatine Kinase Troponin I High Sens Triglycerides Cholesterol LDL Cholesterol, Calc HDL Cholesterol Urine Color Urine Appearance Urine pH Ur Specific [place] Urine Protein Urine Glucose (UA) Urine Ketones Urine Blood Urine Nitrite Ur Leukocyte Esterase Urine Opiates Screen Urine Fentanyl Screen Ur Barbiturates Screen Ur Phencyclidine Scrn Ur Amphetamines Screen U Benzodiazepines Scrn Urine Cocaine Screen U Marijuana (THC) Screen Ethyl Alcohol Discharge Plan Discharge Anticipated Discharge Date/Time: 09/22/23 08:25 Patient Disposition: Home, Self-Care Discharge Diagnosis: right hemiparesis Referrals: Physician,None [Primary Care Provider] - 1 Week Discharge Medications: New atorvastatin 80 mg Tablet 80 mg PO DAILY Qty: 90 0RF aspirin 81 mg Tablet,Delayed Release (Dr/Ec) 81 mg PO DAILY Qty: 90 0RF losartan 50 mg Tablet 50 mg PO DAILY Qty: 90 0RF Protocol: Hold for SBP< HOLD for SBP < : 90 Continued acetaminophen 500 mg Tablet 1,000 mg PO BID PRN (Reason: Fever Or Pain) Discharge Orders: Discharge Order (Routine); Ordered 09/22/23 Ordered By: Antonino Hawley Diet: Advance to usual diet Activity on Discharge: As tolerated Stand Alone Forms: Patient Portal Discharge page Other Ambulatory Orders: MR head/brain w con (Routine) Timeframe: 1 Day Facility: [facility] - Location: MRI Ordered By: Antonino Hawley Care Plan Goals: prevent strokes Health Concerns: ?stroke, etoh Plan of Treatment: no etoh, empiric asa and statin, outpatient mri Assessment: see above
--- NOTE | 2023-09-21 12:23 | MHC.EDTECH ---
Spoke with GINNY Corado about high BP.
--- NOTE | 2023-09-21 12:28 | PC.NURSE ---
paul nephew [phone]
--- NOTE | 2023-09-21 12:32 | PC.NURSE ---
Patient refusing MRI d/t claustrophobia, rather upset at the small space of the MRI machine once returned to ER room. infectious waste technician attempted to get BP, machine read too high. Manual taken also high, noted to have increased PVCs on monitor, admitting provider notified medicated per SEP.
[2023-09-21] MEDS: hydrALAZINE HCl 20 MG/ML VIAL 5 MG IVPUSH (12:40)
[2023-09-21] MEDS: amLODIPine Besylate 10 MG TABLET PO (13:52)
[2023-09-21] MEDS: Losartan Potassium 50 MG TABLET PO (13:52)
--- NOTE | 2023-09-21 14:32 | PC.NURSE ---
Patient's BP continues to trend high, admitting provider made aware, medicated per mar. Patient c/o feeling like he still had to pee s/p voiding, BS >500, admitting provider made aware, straight cath x 1 ordered OP 500.
--- NOTE | 2023-09-21 16:23 | PC.NURSE ---
PT RESTING IN NAD IN STRETCHER. BP IMPROVED, HEADACHE RESOLVED, NO COMPLAINTS OFFERED. AWAITING BED ASSIGNMENT.
[2023-09-22 06:02] VITALS: BP 118/91; PULSE 76; RESP 18; TEMP 36.9; O2SAT 91
[2023-09-22] MEDS: Heparin Sodium,Porcine 5,000 UNIT/ML VIAL 5000 UNIT SUBCUT (06:02)
--- NOTE | 2023-09-22 08:37 | PC.NURSE ---
PT at bedside to work with patient.
[2023-09-22 08:59] VITALS: BP 142/95; PULSE 78; RESP 16; TEMP 37.1; O2SAT 97
--- NOTE | 2023-09-22 09:03 | MHC.CM.PN ---
Met with patient in regards to discharge planning. Patient lives alone, ambulates independently and had no services prior to coming to the hospital. Patient received 1 J&J vaccine and 1 Pfizer booster. Patient believes he has [employer] for insurance. T/W will reach out to [facility] financial counselors. No PCP. List of PCP's provided to patient. No HCP on file. Not interested in completing one at this time. Will need [facility] shuttle at d/c. Continue to monitor for d/c needs.
[2023-09-22 09:18] VITALS: BP 142/95; PULSE 78; O2SAT 97
== END 2023-09-22 08:54 | disposition home or self-care (01) | DRG 65 ==
LOC: HO.ED 16:20 → HO.EDOVER 17:03
PROVIDERS: Admitting Provider Physician Assistant; Emergency Provider Emergency Medicine Emergency Medical Services; Visit Provider Internal Medicine
DX: I63.9 Cerebral infarction, unspecified (principal); G81.91 Hemiplegia, unspecified affecting right dominant side; G47.33 Obstructive sleep apnea (adult) (pediatric); F10.229 Alcohol dependence with intoxication, unspecified; E66.01 Morbid (severe) obesity due to excess calories; Y90.6 Blood alcohol level of 120-199 mg/100 ml; Z71.3 Dietary counseling and surveillance; Z68.37 Body mass index [BMI] 37.0-37.9, adult; Z91.199 Patient's noncompliance with other medical treatment and regimen due to unspecified reason; R29.810 Facial weakness; Z79.899 Other long term (current) drug therapy
CPT/HCPCS: 36415; 70450; 70496; 70498; 71045; 80048; 80061; 80307; 81003; 82550; 82947; 83036; 83735; 84100; 84484; 85025; 85610; 85730; 93005; 97161; 99285; J0360; J1644; J3411; Q9967

== ENCOUNTER → 2023-09-20 14:15 | Outpatient (BNV) | payer SELFPAY | PROVIDERS: Admitting Provider Physician Assistant; Emergency Provider Emergency Medicine Emergency Medical Services; Visit Provider Internal Medicine | DX: I44.0 Atrioventricular block, first degree (principal); I49.3 Ventricular premature depolarization | CPT/HCPCS: 93010 ==

== ENCOUNTER → 2023-09-20 16:46 | Outpatient (BNV) | payer SELFPAY | PROVIDERS: Admitting Provider Physician Assistant; Emergency Provider Emergency Medicine Emergency Medical Services; Visit Provider Physician Assistant | DX: I63.9 Cerebral infarction, unspecified (principal) | CPT/HCPCS: 99223; 99232; 99238 ==

== ENCOUNTER 2023-10-11 19:17 | Emergency (ER) | payer MEDICARE, SELFPAY ==
--- NOTE | ~2023-10-11 | XR_ITS ---
EXAMINATION: XR CHEST CLINICAL INFORMATION: Shortness of breath COMPARISON: Chest radiograph 09/20/2023 TECHNIQUE: 2 views of the chest were obtained. FINDINGS: Mild cardiomegaly. Prominent pulmonary vasculature. No pleural effusion. No focal consolidation. No acute osseous abnormality. XR/XR chest 2V IMPRESSION: Mild cardiomegaly and prominent pulmonary vasculature.
[2023-10-11 19:20] VITALS: BP 214/82; PULSE 43; RESP 18; TEMP 36.4; O2SAT 95; BMI 39.6
--- NOTE | 2023-10-11 19:28 | ECG_ITS ---
Test Reason : DIFFICUILTY BREATHING/DIZZINESS Blood Pressure : / mmHG Vent. Rate : 082 BPM Atrial Rate : 082 BPM P-R Int : 202 ms QRS Dur : 140 ms QT Int : 414 ms P-R-T Axes : 009 -53 072 degrees QTc Int : 483 ms Sinus rhythm with frequent , and consecutive Premature ventricular complexes in a pattern of bigeminy Left axis deviation Left ventricular hypertrophy with QRS widening and repolarization abnormality ( R in aVL , Daryn product ) Abnormal ECG When compared with ECG of 20-SEP-2023 15:07, No significant change was found Referred By: Generic ED Physician Electronically Signed By:GIACOMO DIAMOND
--- NOTE | 2023-10-11 19:56 | MHC.EDTECH ---
Patient brought into triage area,EKG taken and signed by provider,labs drawn and sent to lab.
[2023-10-11 20:08] LABS: MANUAL DIFF FLAG NO
[2023-10-11 20:11] LABS: Basophils Absolute Auto 0.1 X10*3/uL (0.0-0.2); Eosinophils Absolute Auto 0.4 X10*3/uL (0.0-0.4); Eosinophils Percent Auto 3.7 % (0-4); Hematocrit 43.3 % (42.0-52.0); Hemoglobin 14.5 g/dl (14.0-18.0); Imm Gran Abs Auto 0.08 X10*3/uL (0.00-0.03); Imm Gran Pct Auto 0.7 % (0.0-0.4); Lymphocytes Absolute Auto 2.3 X10*3/uL (1.2-4.9); Lymphocytes Percent Auto 20.1 % (20-40); Mean Corpuscular HGB Conc 33.5 g/dl (31.0-36.0); Mean Corpuscular Hemoglobin 29.6 pg (27.0-33.0); Mean Corpuscular Volume 88.4 fL (80.0-98.0); Monocytes Absolute Auto 0.7 X10*3/uL (0.1-1.2); Monocytes Percent Auto 6.2 % (2-11); Neutrophils Absolute Auto 7.9 x10*3/uL (2.0-8.3); Neutrophils Percent Auto 68.3 % (45-73); Platelet Count 208 X10*3/uL (160-400); Red Cell Distribution Width 13.2 % (11.0-16.0); White Blood Count 11.6 X10*3/uL (4.8-10.8)
[2023-10-11 20:23] LABS: Anion Gap 13 (12-20); Blood Urea Nitrogen 14 mg/dL (9-16); Calcium 9.2 mg/dL (8.4-10.2); Carbon Dioxide 27 mmol/L (22-29); Chloride 106 mmol/L (96-108); Creatinine Clr Calc Pharmacy 128.1; Estimated Glomerular Filt Rate > 60; Glucose Random 111 mg/dL (60-115); Potassium 3.9 mmol/L (3.3-5.1); Sodium 142 mmol/L (135-145)
[2023-10-11 20:33] LABS: Troponin-I High Sensitivity 10.7 ng/L (<3.5-35.0)
[2023-10-11 20:57] VITALS: BP 158/84; PULSE 70; RESP 20; TEMP 37; O2SAT 93
--- NOTE | 2023-10-11 21:02 | ED_ITS ---
HPI - Chest Pain General Chief Complaint: Chest Pain Stated Complaint: Difficulty breathing Time Seen by Provider: 10/11/23 21:02 History of Present Illness HPI narrative: The patient is a 63-year-old male who was brought to the hospital by his nephew. The patient was at his home with his nephew. He was doing some help with remodeling when he became dyspneic. His symptoms began at around 7PM this evening. He told his nephew that he was not feeling well and that he was feeling somewhat short of breath and had some left-sided chest tightness. His nephew then drove him to the hospital. He has not had a significant cough. He has felt mildly run down with a bit of a headache today. He thought he might be getting a cold. No abdominal pain. No nausea or vomiting. No pain or swelling in his legs. No fever, sweats, chills. The patient was hospitalized here approximately 3 weeks ago with a question of a possible TIA or stroke. He had an alcohol level of 180 at the time and ultimately his symptoms were attributed to alcohol. He says that he has not seen a doctor in 20 years aside from his recent hospitalization. He does not have a primary care doctor. When he was discharged from his brief hospitalization a few weeks ago he was started on atorvastatin, baby aspirin, and losartan. He says he has never been a smoker although he admits to fairly frequent alcohol use. He is retired. 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 Patient is says that since starting the medications he was prescribed when he left the hospital a few weeks ago his urine has been cloudy. He has had no dysuria or urgency or frequency however. No flank pain. He is circumcised. Related Data Home Medications Medication Instructions Recorded Confirmed acetaminophen 500 mg tablet 1,000 mg PO BID PRN Fever Or Pain 09/20/23 09/20/23 Previous Rx's Medication Instructions Recorded aspirin 81 mg tablet,delayed 81 mg PO DAILY #90 tabs 09/21/23 release atorvastatin 80 mg tablet 80 mg PO DAILY #90 tabs 09/21/23 losartan 50 mg tablet 50 mg PO DAILY #90 tabs 09/22/23 albuterol sulfate 90 mcg/actuation 2 puff inhalation Q4-6H PRN 10/12/23 aerosol inhaler shortness of breath or wheezing #8.5 grams cephalexin 500 mg capsule 500 mg PO BID #10 caps 10/12/23 furosemide 20 mg tablet 20 mg PO DAILY #30 tabs 10/12/23 Allergies Allergy/AdvReac Type Severity Reaction Status Date / Time No Known Allergies Allergy Verified 10/11/23 19:20 Review of Systems 2 Review of Systems: Yes all other systems are reviewed and are negative [facility] Past Medical History Medical History (Updated 10/12/23 @ 01:05 by Jose Benton MD) Alcohol use disorder Severe obesity PILY (obstructive sleep apnea) Social History Social History Alcohol intake: current Alcohol intake frequency: 0-2 drinks per day Alcohol type: beer Patient Tobacco Use Status: Never used Tobacco Smoked in Last 30 Days: No Use of substances other than those prescribed or required for medical reasons: No Advance Directives: No Advance Directives Information Provided: No service: No Physical Exam 2 Vital Signs: Vital Signs: Last Vital Signs Temp 98.1 F 10/12/23 01:19 Pulse 70 10/12/23 01:19 Resp 16 10/12/23 01:19 BP 182/87 H 10/12/23 01:19 Pulse Ox 95 10/12/23 01:19 O2 Del Method Room Air 10/12/23 01:19 BMI result Body Mass Index 39.6 Const: Other: The patient is an obese 63-year-old who was awake and alert. He looks somewhat chronically ill but not obviously acutely ill. HEENT: Other: Face is symmetrical. Mucous membranes moist. Eyes: Other: Pupils are round equal, conjunctivae clear Neck: Other: No JVD Resp: Other: No anastasiia wheezes or crackles. No increased work of breathing. No apparent discomfort with breathing. Cardio: Rate: regular rate Heart sounds: S1 normal heart sound present and S2 normal heart sound present GI: Other: Abdomen is soft and nontender Skin: Other: Skin is dry and unremarkable. Neuro: Other: The patient is awake and alert. Speech is clear. Face is symmetrical. He moves his extremities symmetrically. He is grossly neurologically intact. Extrem: Other: Calves are thick bilaterally. No pitting edema. No asymmetry. No tenderness. Medications Administered Discontinued Medications Generic Name Dose Route Start Last Admin Trade Name Freq PRN Reason Stop Dose Admin Albuterol Sulfate 2 puff 10/11/23 23:58 10/12/23 00:35 Albuterol Sulfate 90 Mcg 8 Gm Inhaler INHALE 10/11/23 23:59 2 puff ONCE ONE Administration Cephalexin HCl 500 mg 10/12/23 01:07 10/12/23 01:16 Cephalexin 500 Mg Capsule PO 10/12/23 01:08 500 mg ONCE ONE Administration Medical Decision Making Medical Decision Making [facility] Narrative: The patient is a 63-year-old male who had an episode of shortness of breath while doing some work at his house. His shortness of breath resolved by the time I encountered him and he was not looking acutely ill. He had some very mild wheezes on exam. He does not have a history of smoking or asthma. His EKG today shows bigeminy but his QRS morphologies are otherwise similar to his previous EKG. His troponins are flat. His BNP is 179. He is obese. Since obesity tends to lower BNP I suspect his result is probably an underestimate of the significance of BNP. His chest x-ray was read as showing prominent pulmonary vasculature without anastasiia pulmonary edema. His D-dimer was undetectable. There is no suggestion of an infectious etiology of his symptoms. It is not clear to me whether his shortness of breath was possibly more related to bronchospasm or possibly some very mild symptoms of incipient congestive heart failure. His description of his symptoms does not really sound like an acute coronary syndrome. In the emergency department he was hemodynamically stable and asymptomatic. The big problem with this patient is that he has no primary care doctor and at the moment he does not have any insurance. He has apparently applied for insurance through the [employer]. I believe he has not applied for [employer]. He says that he lives on his social security check and a small pension benefit and that he pays $2000 a month to his nephew for rent. The patient was instructed in the use of an albuterol inhaler. He will be prescribed the albuterol inhaler and furosemide 20 mg daily. He will be discharged to continue his efforts to get insurance through the [employer] and also to apply for [employer]. He will need to get a primary care doctor. He should return to the emergency room if worse. Lab Data 10/11/23 19:55 10/11/23 19:55 Labs: Lab Results 10/11/23 10/11/23 10/12/23 Range/Units 19:55 22:41 00:49 WBC 11.6 H (4.8-10.8) X10*3/uL RBC 4.90 (4.60-5.80) X10*6/uL Hgb 14.5 (14.0-18.0) g/dl Hct 43.3 (42.0-52.0) % MCV 88.4 (80.0-98.0) fL MCH 29.6 (27.0-33.0) pg MCHC 33.5 (31.0-36.0) g/dl RDW 13.2 (11.0-16.0) % Plt Count 208 (160-400) X10*3/uL MPV 10.0 (9.4-12.4) fL Immature Gran % (Auto) 0.7 H (0.0-0.4) % Neut % (Auto) 68.3 (45-73) % Lymph % (Auto) 20.1 (20-40) % [place] % (Auto) 6.2 (2-11) % Eos % (Auto) 3.7 (0-4) % Baso % (Auto) 1.0 (0-2) % Lymph # (Auto) 2.3 (1.2-4.9) X10*3/uL [place] # (Auto) 0.7 (0.1-1.2) X10*3/uL Eos # (Auto) 0.4 (0.0-0.4) X10*3/uL Baso # (Auto) 0.1 (0.0-0.2) X10*3/uL Abs Immat Gran (auto) 0.08 H (0.00-0.03) X10*3/uL Absolute Neuts (auto) 7.9 (2.0-8.3) x10*3/uL Absolute Nucleated RBC 0.000 (0.0-0.012) X10*3/uL Nucleated RBC % (auto) 0.0 (0.0-0.2) /100WBC D-Dimer High Sensitivty < 150 NG/ML Sodium 142 (135-145) mmol/L Potassium 3.9 (3.3-5.1) mmol/L Chloride 106 (96-108) mmol/L Carbon Dioxide 27 (22-29) mmol/L Anion Gap 13 (12-20) BUN 14 (9-16) mg/dL Creatinine 0.75 (0.5-1.4) mg/dL Estim Creat Clear Calc 128.1 Estimated GFR > 60 Random Glucose 111 (60-115) mg/dL Calcium 9.2 (8.4-10.2) mg/dL Magnesium 1.9 (1.6-2.6) mg/dL Troponin I High Sens 10.7 D 13.4 (<3.5-35.0) ng/L C-Reactive Protein 0.26 (< or = 0.50) mg/dL B-Natriuretic Peptide 179 H (<100) pg/mL Urine Color Yellow Urine Appearance Turbid Urine pH 6.0 (5.0-9.0) Ur Specific [place] 1.020 (1.005-1.025) Urine Protein Negative (Neg-Trace) mg/dL Urine Glucose (UA) Negative (Negative) mg/dL Urine Ketones Negative (Negative) mg/dL Urine Blood Negative (Negative) Urine Nitrite Positive H (Negative) Ur Leukocyte Esterase Moderate (2+) H (Negative) Urine RBC 0-2 (0-2) /HPF Urine WBC >50 H (0-5) /HPF Ur Squamous Epith Cells 0-2 (0-2) /HPF Urine Bacteria 4+ (None Seen) Hyaline Casts 0-2 (0-2) /LPF Ethyl Alcohol < 10 mg/dL Influenza Type A (PCR) NEGATIVE (Negative) Influenza Type B (PCR) NEGATIVE (Negative) RSV RNA Qual (PCR) NEGATIVE (Negative) SARS-CoV-2 RNA (RT-PCR) NEGATIVE (Negative) Independent Interpretation I performed an independent interpretation of an: EKG Interpretation: EKG at 19:44 shows sinus rhythm with frequent PVCs in a bigeminy pattern. No definite acute ischemic changes. The sinus QRS complexes are similar to the previous EKG. Discharge Plan Discharge Clinical Impression: Shortness of breath, Abnormal urinalysis Patient Disposition: Home, Self-Care Instructions: How to Use a Metered-Dose Inhaler and a Spacer (ED) Additional Instructions: I am not certain if your shortness of breath was related to some degree of wheezing or possibly to some degree of mild excess fluid. I have sent a prescription for furosemide, a diuretic medication. This medication helps remove excess fluid from the body and this may help prevent another episode of shortness of breath. Additionally you have been prescribed albuterol. You have been shown how to use the inhaler with a spacer. You may use this device 2 puffs every 4-6 hours as needed for any shortness of breath. Your urine test suggests you might have a urine infection. I have sent a prescription for cephalexin, an antibiotic which you should take for 5 days. Please continue your efforts to apply for health insurance through the [place] and also please apply for [employer] [place]. My hope is you will be able to get a regular doctor once you have insurance. Return to the emergency room if worse. Prescriptions: New cephalexin 500 mg capsule 500 mg PO BID Qty: 10 0RF furosemide 20 mg tablet 20 mg PO DAILY Qty: 30 0RF albuterol sulfate 90 mcg/actuation HFA aerosol inhaler 2 puff inhalation Q4-6H PRN (Reason: shortness of breath or wheezing) Qty: 8.5 0RF No Action acetaminophen 500 mg Tablet 1,000 mg PO BID PRN (Reason: Fever Or Pain) atorvastatin 80 mg Tablet 80 mg PO DAILY Qty: 90 0RF aspirin 81 mg Tablet,Delayed Release (Dr/Ec) 81 mg PO DAILY Qty: 90 0RF losartan 50 mg Tablet 50 mg PO DAILY Qty: 90 0RF Protocol: Hold for SBP< HOLD for SBP < : 90 Interventions: ED Discharge Assessment Last Done: 10/12/23 01:19 Discharge Date/Time: 10/12/23 01:20
[2023-10-11 21:39] LABS: C Reactive Protein 0.26 mg/dL (< or = 0.50); Magnesium 1.9 mg/dL (1.6-2.6)
[2023-10-11 21:51] LABS: B Type Natriuretic Peptide 179 pg/mL (<100)
[2023-10-11 23:02] LABS: Ethanol < 10 mg/dL
[2023-10-11 23:08] LABS: Troponin-I High Sensitivity 13.4 ng/L (<3.5-35.0)
[2023-10-11 23:21] LABS: D Dimer High Sensitivity < 150 NG/ML
[2023-10-11 23:24] LABS: Influenza A PCR NEGATIVE (Negative); Influenza B PCR NEGATIVE (Negative); Resp Syncy Virus RNA Qual PCR NEGATIVE (Negative); SARS COV2 PCR INHOUSE NEGATIVE (Negative)
[2023-10-12 00:32] VITALS: BP 182/87; PULSE 70; RESP 14; TEMP 36.7; O2SAT 95
[2023-10-12] MEDS: Albuterol Sulfate 90 MCG 8 GM INHALER 2 PUFF INHALE (00:35)
[2023-10-12 00:37] VITALS: PULSE 68; RESP 20; O2SAT 96
[2023-10-12 00:54] LABS: Appearance Urine Turbid; Color Urine Yellow; Glucose Urine UA Negative (Negative); Leukocyte Esterase Urine Moderate (2+) (Negative); Nitrite Urine Positive (Negative); UMIC TRIGGER UACC YES; Urine Blood Negative (Negative); Urine Ketones Negative (Negative); Urine Protein Negative (Neg-Trace)
[2023-10-12 00:57] LABS: Bacteria Urine 4+ (None Seen); Hyaline Casts Urine 0-2 /LPF (0-2); RBC Urine 0-2 /HPF (0-2); Squamous Epithelial Cell Urine 0-2 /HPF (0-2); UACC Culture Trigger YES; WBC Urine >50 /HPF (0-5)
[2023-10-12] MEDS: cephALEXin 500 MG CAPSULE PO (01:16)
[2023-10-12 01:19] VITALS: BP 182/87; PULSE 70; RESP 16; TEMP 36.7; O2SAT 95
== END 2023-10-12 01:20 | disposition home or self-care (01) ==
PROVIDERS: Emergency Provider Emergency Medicine
DX: R07.89 Other chest pain (principal); R06.02 Shortness of breath; R79.89 Other specified abnormal findings of blood chemistry; Z11.52 Encounter for screening for COVID-19; Z79.899 Other long term (current) drug therapy; Z20.822 Contact with and (suspected) exposure to COVID-19
CPT/HCPCS: 0241U; 36415; 71046; 80048; 80307; 81001; 83735; 83880; 84484; 85025; 85379; 86140; 87086; 87088; 93005; 94640; 99285

== ENCOUNTER → 2023-10-11 19:28 | Outpatient (BNV) | payer OTHER, SELFPAY | PROVIDERS: Emergency Provider Emergency Medicine; Visit Provider Internal Medicine | DX: I44.4 Left anterior fascicular block (principal) | CPT/HCPCS: 93010 ==

== ENCOUNTER 2024-09-09 13:29 | Outpatient (AMB) | payer OTHER, SELFPAY ==
--- NOTE | 2024-09-09 14:17 | MHC.OFFVIS ---
Intake Visit Reasons: urinary incontinence Intake Note: New Patient presents for initial visit for urinary incontinence Urology Medications: none Blood Thinner: none Device Sales Consultant Required: No Accompanied by: Self / Same As Patient Allergies No Known Allergies Allergy (Verified 09/09/24 14:28) Medication List - Last Reconciled 09/09/24 by Saud Lazo MD acetaminophen 1,000 mg PO BID PRN aspirin 81 mg PO DAILY atorvastatin 80 mg PO DAILY lisinopril 20 mg PO DAILY tamsulosin 0.4 mg PO BEDTIME HPI Comments Details: Deo is a 64-year-old male, referred due to urinary incontinence. The patient has a history of stroke about a year ago. The patient states his urinary symptoms have been worsening over the last year. Bladder scan PVR is elevated greater than 300 mL. 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 Abnormal electrocardiogram [ECG] [EKG] Alcohol use disorder Severe obesity PILY (obstructive sleep apnea) Social History Alcohol intake: current Alcohol intake frequency: 0-2 drinks per day Alcohol type: beer Patient Tobacco Use Status: Never used Tobacco service: No Review of Systems Const All systems reviewed & are unremarkable except as noted in HPI and below Reports no additional complaints Eyes Reports no additional complaints ENT Reports no additional complaints Card Reports no additional complaints Resp Reports no additional complaints GI Reports no additional complaints Reports as per HPI Musc Reports no additional complaints Skin/Breast Reports system reviewed and no additional complaints, except as documented Neuro Reports no additional complaints Psych Reports no additional complaints Endo Reports no additional complaints Hamzah/Lymph Reports no additional complaints Aller/Immun Reports no additional complaints Physical Exam Const General: healthy appearing, no acute distress and well developed Nutritional Appearance: overweight Orientation/consciousness: patient oriented x3 HEENT Head: Yes normocephalic and Yes atraumatic Eyes Conjunctivae: conjunctivae normal Neck Neck: Yes normal visual inspection Chest Chest palpation & inspection: normal inspection of the chest Resp Effort & Inspection: normal respiratory effort GI Inspection: Yes normal to inspection Palpation (GI): Soft to palpation Neuro General: patient oriented x3 Psych Appearance: grossly normal Affect: normal affect Office Procedures Post Void Residual Post Residual Void Post Void Residual (PVR): 320 [id number] Void Residual by ultrasound Results AMB Urinalysis, Automated UA Leukoctes 70 Nicole/uL Last Edit by Andrae Zhang on 09/09/24 14:31 UA Nitrite Last Edit by [employer] Advanced Systemsjose eduardo Zhang on 09/09/24 14:31 UA Urobilinogen 0.2 mg/dL Last Edit by [employer] Systemsjose eduardo AREVSlopez on 09/09/24 14:31 UA Protein 15 mg/dL Last Edit by Mowdolopez on 09/09/24 14:31 UA pH 6.0 Last Edit by [employer] Systemsjose eduardo AREVSlopez on 09/09/24 14:31 UA Blood 0 Bud/uL Last Edit by Mowdolopez on 09/09/24 14:31 UA Specific [place] 1.020 Last Edit by Mowdolopez on 09/09/24 14:31 UA Ketone Last Edit by Mowdolopez on 09/09/24 14:31 UA Bilirubin 0 mg/dL Last Edit by Mowdolopez on 09/09/24 14:31 UA Glucose 0 mg/dL Last Edit by [employer] Systemsjose eduardo AREVSlopez on 09/09/24 14:31 Results Reviewed Results Reviewed: Laboratory Last Values Urine pH (Auto) 6.0 09/09/24 14:30 Specific [place] (Auto) 1.020 09/09/24 14:30 Urine Protein (Auto) 15 mg/dL 09/09/24 14:30 Glucose (UA)(Auto) 0 mg/dL 09/09/24 14:30 Urine Blood (Auto) 0 Bud/uL 09/09/24 14:30 Urine Bilirubin (Auto) 0 mg/dL 09/09/24 14:30 Urine Urobilinogen (Auto) 0.2 mg/dL 09/09/24 14:30 Leukocyte Esterase (Auto) 70 Nicole/uL 09/09/24 14:30 Assessment & Plan Assessment & Plan (1) Incomplete bladder emptying: Code(s): R33.9 - Retention of urine, unspecified Category: Medical (2) Urinary incontinence: Code(s): R32 - Unspecified urinary incontinence Category: Medical (3) History of stroke: Code(s): Z86.73 - Personal history of transient ischemic attack (TIA), and cerebral infarction without residual deficits Category: Medical Plan Ultrasound renal/bladder, tamsulosin, follow-up office cystoscopy Orders: Orders AMB Urinalysis Automated Today Z13.9 - Encounter for screening, unspecified AMB Post Void Residual by ultrasound Today N39.41 - Urge incontinence US retroperitoneal comp Today R32 - Unspecified urinary incontinence, R33.9 - Retention of urine, unspecified Medications: New tamsulosin 0.4 mg PO BEDTIME 90 caps 1RF Discontinued cephalexin Discontinued Reason: Patient no longer taking 500 mg PO BID 10 caps 0RF losartan Discontinued Reason: Patient no longer taking 50 mg See Protocol PO DAILY 90 tabs 0RF furosemide Discontinued Reason: Patient no longer taking 20 mg PO DAILY 30 tabs 0RF albuterol sulfate 90 mcg/actuation Discontinued Reason: Patient no longer taking 2 puffs inhalation Q4-6H PRN 8.5 grams 0RF shortness of breath or wheezing Patient Instructions: The patient had an opportunity to ask questions regarding treatment plan. The patient expressed understanding and agreement with the above treatment plan. The patient is aware they should contact our office by phone for worsening of their current condition or the appearance of new symptoms. Compliance is encouraged with any medications and followup testing that is ordered. It is a privilege to be allowed the opportunity to participate in the urologic care of your patient. If you have any questions or concerns regarding treatment for the above conditions please do not hesitate to contact me. The office telephone contact is [phone]. This note is constructed in part using voice recognition software. While every effort has been made to ensure accuracy service establishment attendant errors may have been included. Yours sincerely, Saud Lazo MD Coding Level of Care Code New Pt Level 4 (43412) Diagnoses Incomplete bladder emptying R33.9 Urinary incontinence R32 History of stroke Z86.73 CPT Codes Post Residual Void - PVR CPT Code: 75673-[facility]md Void Residual by ultrasound ([id number])
== END 2024-09-09 14:50 | disposition home or self-care (01) ==
PROVIDERS: Visit Provider Urology
DX: R33.9 Retention of urine, unspecified (principal); R32 Unspecified urinary incontinence; Z86.73 Personal history of transient ischemic attack (TIA), and cerebral infarction without residual deficits; Z13.9 Encounter for screening, unspecified
CPT/HCPCS: 99204

== ENCOUNTER → 2024-09-09 13:29 | Outpatient (BNVA) | payer OTHER, SELFPAY | PROVIDERS: Visit Provider Urology | DX: R33.9 Retention of urine, unspecified (principal); R32 Unspecified urinary incontinence; Z86.73 Personal history of transient ischemic attack (TIA), and cerebral infarction without residual deficits | CPT/HCPCS: 51798; 81003; 99202 ==

== ENCOUNTER 2024-10-18 13:28 | Outpatient (REF) | payer OTHER, SELFPAY ==
--- NOTE | ~2024-10-18 | US_ITS ---
CLINICAL HISTORY: R33.9 - Retention of urine, unspecified US kidneys and bladder Comparison: None Findings: Right kidney 11.2 cm length. Mild right hydronephrosis noted. No significant focal abnormality. 0.9 cm cyst noted. Left kidney 10.9 cm length. No significant focal abnormality. No left hydronephrosis. Normal bilateral renal echogenicity. The urinary bladder is unremarkable. Prevoid volume 547 mL. Post void volume 508 mL. Bilateral ureteral jets visualized. Impression: Significant postvoid residual of 508 mL Mild right hydronephrosis Ultrasound prostate Comparison: None Findings: Heterogeneous normal-sized prostate. Prostate measures 3.8 x 3.3 x 3.3 cm. Prostate volume: 21 mL. Impression: Heterogeneous prostate This document has been electronically signed by: Arnold Patel MD on 10/18/2024 19:24:51
--- OUTSIDE RECORDS SUMMARY | 2024-10-18 15:11 | XMS_ITS | Encounter Summary ---
Author Name [facility] [place] [facility] Address [address] [place] [address] Care Team Providers Care Conference Planning Manager Name Role Phone HOLT KECIA Primary Care Provider Andres liang Insurance Providers: All historical and current Section Date Range: From patient's date of to the date document was created. This section includes the names of all active insurance providers for the patient. Insurance Provider Type of Coverage Plan Name Start of Policy Coverage End of Policy Coverage Group Number Member ID Insurance Provider's Telephone Number Policy Swift's Name Patient's Relationship to Policy Swift MEDICARE (WNR) MEDICARE ([place]) PART B Jan 19, 2024 PART B [id number] MARIPOSA PAIZ JR PATIENT Selected Encounter This section includes the information on record at [place] for the Encounter. Date/Time Encounter Type Encounter Description Reason Provider Source Sep 21, 2024 02:00 PM OFFICE O/P EST MOD 30 MIN PRIMARY CARE/MEDICINE ICD-10-CM I63.9 Cerebral infarction, unspecified MAY,PARK P IHE Encounter Template Text not used by [place] Assessments - Encounter Diagnoses This section includes the primary and secondary diagnoses documented for the Encounter. Date/Time Primary/Secondary Diagnosis Diagnosis Name Provider Source Sep 21, 2024 02:20 PM PRIMARY Cerebral infarction, unspecified ESTHELA TREVIÑO Sep 21, 2024 02:20 PM SECONDARY Encounter for immunization ESTHELA TREVIÑO Sep 21, 2024 02:20 PM SECONDARY Encounter for screening for malignant neoplasm of colon ESTHELA TREVIÑO Sep 21, 2024 02:20 PM SECONDARY Essential (primary) hypertension ESTHELA TREVIÑO Sep 21, 2024 02:20 PM SECONDARY Pure hypercholesterolemi a, unspecified ESTHELA TREVIÑO Plan of Treatment: Future Appointments (+ 6 months) and Future Tests (+/- 45 days) The Plan of Treatment section includes future care activities for the [facility] [place] [facility] This section includes future appointments and future orders which are active, pending or scheduled. Future Appointments This section includes appointments that were scheduled to occur 6 months from the date of the Encounter, up to a maximum of 20 appointments. The data comes from all [place] treatment facilities. Appointment Date/Time Appointment Type Appointme nt Facility Name Oct 06, 2024 01:00 PM [facility] [place] [facility] Dec 27, 2024 12:30 PM [facility] Mar 22, 2025 01:30 PM [facility] Active, Pending, and Scheduled Orders This section includes a listing of several types of active, pending, and scheduled orders, including clinic medications orders, diagnostic test orders, procedure orders and consult orders; where the start date of the order is 45 days before the date of the Encounter or 45 days after the date of theEncounter. The data comes from all [facility]. Test Date/Time Test Type Test Details Facility Name Oct 06, 2024 01:16 PM Consult Order OPTOMETRY/ [facility] OUTPT Cons [facility] Lab Results: +/- 30 days of the encounter This section includes the Chemistry and Hematology Lab Results on record with [place] for the patient. Radiology Reports and Pathology Reports are provided separately, in subsequent sections. Lab Results This section contains the Chemistry/Hematology Results that were resulted 30 days before or 30 daysafter the date of the Encounter. Date/Time Source Result Type Result - Unit Interpretation Reference Range Comment Sep 21, 2024 02:19 PM [facility] LIVER FUNCTION Specimen Type: SERUM No comment entered. Ordering Provider: LUCERO HOLT Report Released Date/Time: Aug 15, 2024 11:30 AM Reporting Lab: [facility] [address] [address] Performing Lab: [address] [address] PROTEIN,TOTAL 7.5 g/dL 6.0-8.3 ALBUMIN 4.4 g/dL 3.5-5.0 ALKALINE PHOSPHATASE 48 U/L 40-150 AST 20 U/L 5-34 ALT 24 U/L BILIRUBIN, TOTAL 1.0 mg/dL 0.2-1.2 Sep 21, 2024 02:19 PM [facility] CBC AND DIFF (AUTO) Specimen Type: BLOOD No comment entered. Ordering Provider: LUCERO HOLT Report Released Date/Time: Aug 15, 2024 11:30 AM Reporting Lab: [facility] [address] [address] Performing Lab: [facility] [address] [address] WBC 10.87 10*3/uL 4.50-11.00 RBC 5.00 10*6/uL 4.23-5.66 HGB 14.3 g/dL 12.8-17 HCT 43.4 39.2-50.4 MCV 86.8 fL 82-99 MCHC 32.9 g/dL 30.8-35.1 PLT 234 10*3/uL 140-360 RDW-CV 13.1 12.0-16.0 MONO, ABS 0.69 10*3/uL 0.30-1.10 MCH 28.6 pg 26.2-32.6 NEUT % 61.0 43.7-75.8 LYMPH % 24.4 14.0-42.3 MONO % 6.3 5.1-13.7 EOS % 5.5 0.4-6.8 BASO % 1.1 0.1-2.0 NEUT, ABS 6.62 10*3/uL 2.20-7.60 LYMPH, ABS 2.65 10*3/uL 1.00-3.20 EOS, ABS 0.60 10*3/uL H 0.03-0.44 BASO, ABS 0.12 10*3/uL 0.01-0.13 IMMATURE GRAN % 1.7 H 0.0-0.7 IMMATURE GRAN, ABS 0.19 10*3/uL H 0.00-0.06 NRBC % 0.0 0.0-0.0 NRBC, ABS 0.00 10*3/uL 0.00-0.00 Sep 21, 2024 02:19 PM [facility] HEMOGLOBIN A1C PANEL Specimen Type: BLOOD Comment: Values obtained from A1C measurements can vary. For atypical A1C assays, a reported value of 7.0 could actually be between 6.72 and 7.28 if measured by a reference method. A reported value of 9.0 could actually be between 8.73 and 9.27. Ref: http://www.ngs p.org/CAPdata. asp Ordering Provider: LUCERO HOLT Report Released Date/Time: Aug 15, 2024 11:30 AM Reporting Lab: [address] [phone] Performing Lab: [address] [phone] HEMOGLOBIN A1C 5.4 4.0-5.6 Sep 21, 2024 02:19 PM [facility] TSH Specimen Type: SERUM No comment entered. Ordering Provider: LUCERO HOLT Report Released Date/Time: Aug 15, 2024 11:30 AM Reporting Lab: [address] [phone] Performing Lab: [address] [address] TSH 1.53 u[IU]/mL 0.35-5.00 Sep 21, 2024 02:19 PM [facility] CREATININE (eGFR 2020) Specimen Type: SERUM No comment entered. Ordering Provider: LUCERO HOLT Report Released Date/Time: Aug 15, 2024 11:30 AM Reporting Lab: [address] [phone] Performing Lab: [address] [address] CREATININE, Serum 0.81 mg/dL 0.50-1.40 eGFR(CKD-EPI 2020) >90 mL/min >60 Sep 21, 2024 02:19 PM [facility] MICROALBUMIN CREATININE RATIO PANEL Specimen Type: URINE No comment entered. Ordering Provider: LUCERO HOLT Report Released Date/Time: Aug 15, 2024 11:30 AM Reporting Lab: [facility] [address] [address] Performing Lab: [address] [phone] MICROALBUMIN/C REATININE RATIO 9.9 mg/g 0-29.9 MICROALBUMIN,Q UANTITATIVE 1.3 mg/dL RR UNAVAIL CREATININE URINE 131.48 mg/dL Sep 21, 2024 02:19 PM [facility] BASIC METABOLIC PANEL (non-fasting) Specimen Type: SERUM No comment entered. Ordering Provider: PARK COLÓN Report Released Date/Time: Sep 21, 2024 02:12 PM Reporting Lab: [address] [phone] Performing Lab: [address] [phone] UREA NITROGEN 16 mg/dL 7-25 GLUCOSE 95 mg/dL 65-100 SODIUM 138 mmol/L 135-145 POTASSIUM 4.5 mmol/L 3.5-5.0 CHLORIDE 106 mmol/L 100-110 CO2 23 meq/L 20-30 CALCIUM 9.8 mg/dL 8.5-10.2 CREATININE, Serum 0.80 mg/dL 0.50-1.40 eGFR(CKD-EPI 2020) >90 mL/min >60 Sep 21, 2024 02:19 PM [facility] LIPID PANEL, NON FASTING Specimen Type: SERUM No comment entered. Ordering Provider: PARK COLÓN Report Released Date/Time: Sep 21, 2024 02:12 PM Reporting Lab: [facility] [address] [address] Performing Lab: [address] [address] CHOLESTEROL 110 mg/dL TRIGLYCERIDE 82 mg/dL 0-150 LDL calculated 59 mg/dL 0-129 CHOL/HDL 3.1 HDL CHOLESTEROL 35 mg/dL L 40-60 Immunizations: All administered on the encounter date This section contains immunizations associated to the Encounter. Immunization Series Date Issued Reaction Comments PNEUMOCOCCAL CONJUGATE PCV20 , POLYSACCHARIDE [id number] CONJUGATE, ADJUVANT, PF Sep 21, 2024 RSV, RECOMBINANT, PROTEIN GARCIA BUNIT RSVPREF3, ADJUVANT RECONSTITUTED, 0.5 ML, PF 1 Sep 21, 2024 TDAP Sep 21, 2024 Social History: Smoking Status (Most current) and Tobacco Use (All prior to encounter date) This section includes the most current, and the historical, smoking and tobacco- related health factors from the [place] facility where the Encounter took place. Current Smoking Status This section includes the most current smoking, or tobacco-related health factor, from the [place] facility where the Encounter took place. Date/Time Current Smoking Status Comment Facil ity May 10, 2024 01:30 PM VA-TOBACCO NEVER USED [place] Advance Directives: All historical and current Section Date Range: From patient's date of to the date document was created. This section includes ALL of a patient's completed or amended [place] Advance and Rescinded Directives. The entries below indicate that a directive exists for the patient, but an actual copy is not included with this document. The data comes from all [place] facilities. Date Advance Directives Provider Source Apr 28, 2024 ADV[facility] Encounter Notes: All associated encounter notes This section contains the clinical notes associated to the Encounter. 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 Lot: [id number] Exp Date: Nov 17, 2025 NDC: [id number] Admin Route/Site: INTRAMUSCULAR/LEFT DELTOID Dosage: 0.5mL Vaccine Information Statement(s): PNEUMOCOCCAL CONJUGATE ([id number]) VIS November 29, 2022 (LAO) Order By: Policy Administered By: Andreia Treviño The Pneumococcal Vaccine Information Statement (VIS) was reviewed with the patient/caregiver which lists the benefits and risks of not receiving the Pneumococcal vaccine. The patient/caregiver denied any prior severe reaction to this vaccine or its components or a severe allergic reaction such as anaphylaxis to any vaccine or any injectable therapy. The patient/caregiver gave verbal consent to receive the vaccine. Tdap Immunization: Administered: TDAP Date Administered: Sep 21, 2024 14:00 Cryogenic Transport Driver: [employer] Lot: [id number] Exp Date: Jul 30, 2026 NDC: 072840942496 Admin Route/Site: INTRAMUSCULAR/LEFT DELTOID Dosage: 0.5mL Vaccine Information Statement(s): TDAP (TETANUS, DIPHTHERIA, PERTUSSIS) VACCINE VIS Feb 23, 2021 (LAO) Order By: Policy Administered By: Andreia Treviño The TETANUS/DIPHTHERIA/PERTUSSIS (TDAP) Vaccine Information Statement (VIS) was reviewed with the patient/caregiver which lists the benefits and risks of the vaccine and the risks of not receiving the Tdap vaccine. The patient/caregiver denied any prior severe reaction to this vaccine or its components or a severe allergic reaction, such as anaphylaxis, to any vaccine or any injectable therapy. The patient/caregiver gave verbal consent to receive the vaccine. RSV Immunization: Respiratory Syncytial Virus (RSV) Vaccine: RSV vaccine administered today. Administered: RSV, RECOMBINANT, PROTEIN SUBUNIT RSVPREF3, ADJUVANT RECONSTITUTED, 0.5 ML, PF Date Administered: Sep 21, 2024 14:00 Series: Series 1 Cryogenic Transport Driver: [employer] Lot: [id number] Exp Date: May 14, 2025 ND: [id number] Admin Route/Site: INTRAMUSCULAR/RIGHT DELTOID Dosage: .5mL Vaccine Information Statement(s): RSV (RESPIRATORY SYNCYTIAL VIRUS) VACCINE VIS May 06, 2024 (LAO) Order By: Park Colón Administered By: Andreia Treviño Vaccine Information Sheet (VIS) was given to the patient/caregiver, education regarding adverse reactions was discussed, as well as barriers to learning, if any, were acknowledged. 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 No problems today. No new medical issues have arisen ROS:weight is stable; vision is stable; hearing is good; no fevers or adenopathy; no CP/SOB/ROMAN; gi--no diarrhea, hematochezia, melena; --no stones, hematuria, dysuria; skin--no lesions or rash; neuro--no WALSH, szs, stroke-like sx; MSK--no new problems FHx: mother 62 heart disease ; father 52--complications of working in a chemical plant SHx: tob--none; drugs--none; etoh--2 beers per week, [employer] FROM Feb TO Feb Active Medical Problems: Active problems - Computerized Problem List is the source for the followin. CVA - Cerebrovascular accident CVA SEP 13: Seen ER, [facility] SEP 13; Cause?? - Prob ETOH 2. Hypertension Request ECHO; Request CXR; Request US's of Carotids and Aorta in MAY 13 3. Hypercholesterolemia 4. Screening for malignant neoplasm of colon done Never Had One; Give FIT Card in MAY 13 5. athridities LBP and Bilat Hip Pain 6. Ambulatory ECG abnormal Sinus w/ 1st Deg AV Blk and PVC's; No Ischemia Ventric Rate 78 (no A FIB) Meds:Active Outpatient Medications (including Supplies): ASPIRIN 81MG EC TAB TAKE ONE TABLET BY MOUTH ONCE DAILY TO ACTIVE PREVENT STROKE/HEART ATTACK Indication: PREVENTION FOR STROKE ATORVASTATIN CALCIUM 40MG TAB TAKE ONE-HALF TABLET BY ACTIVE MOUTH ONCE DAILY Indication: FOR HIGH CHOLESTEROL DEPEND UNDERWEAR,MAXIMUM,MEN X-LARGE USE 1 BRIEF ACTIVE DIRECTED TWICE DAILY NEEDED LISINOPRIL 20MG TAB TAKE ONE TABLET BY MOUTH ONCE DAILY TO ACTIVE CONTROL BLOOD PRESSURE Indication: FOR HIGH BLOOD PRESSURE 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 abd-soft and nontender; extrems are without cce; neuro--a&ox3 and coop, nonfocal Data: All available test results were reviewed with the Collection DT Spec WBC HGB HCT PLT K+/Pot Sodium HGBA1c 05/10/2024 14:47 SERUM 4.3 141 05/10/2024 14:45 BLOOD 5.1 05/10/2024 14:45 BLOOD 10.42 15.0 44.8 221 Collection DT Spec GLUCOSE CREATIN AST ALT T BILI ALK MARIA D CHOL 05/10/2024 14:55 SERUM 161 05/10/2024 14:47 SERUM 100 0.84 21 26 0.9 44 05/10/2024 14:45 SERUM 164 Collection DT Spec LDL-c HDL TRIG TSH B12 SR- VIT D25 HIV Ag/ 05/10/2024 14:55 SERUM 91 40 152 H 05/10/2024 14:45 SERUM 1.27 311 25 NON- REACTIVE 05/10/2024 14:45 SERUM 92 41 156 H Collection DT Spec RBC/HPF 05/10/2024 14:47 URINE 3-5 SERUM Oct Reference 2023 14:45 Units Ranges --------- ACID PH U/L 2.2 - 10.5 TartInh U/L .2 - 3.5 Pap U/L 0 - 1 PAP U/L 0 - 1.2 ProSpAg PrSpAg ng/ml 0 - 4 PSA 1.63 ng/mL 0 - 4 DATE TIME SPECIMEN TEST VALUE Ref ranges --------- May 11, 2024@07:00 FECES OCCULT BLOOD (FIT)#1 OF 1:Negative Ref: NEG A/P: All instructions were explained for the , who expressed understanding and agreement. 1. HTN--will increase lisinopril to 40 mg daily; 2. Hyperlipidemia--good control on meds 3. Hx CVA 08/2023--continue risk factor mitigation 4. BPH--continue tamsulosin 5. HCM--colon screen--FIT test negative 05/11/2024--continue annually Prostate screen--PSA normal 05/10/2024--continue annually 6. FOllow up 6 months, or as needed On the date of the encounter, I spent 30 minutes on some or all of the following: chart review, history, physical examination, treatment planning, education and counselling of the patient/family/caregiver, placing orders, communicating with other health care providers, and documentation in the electronic health record. Suicide Screen: C-SSRS Screening [place]-Suicide Severity Rating Scale (C-SSRS Screener) 1. Over the past month, have you wished you were or wished you could go to sleep and not wake up? No 2. Over the past month, have you had any actual thoughts of killing yourself? No 3. Over the past month, have you been thinking about how you might do this? Response not required due to responses to other questions. 4. Over the past month, have you had these thoughts and had some intention of acting on them? Response not required due to responses to other questions. 5. Over the past month, have you started to work out or worked out the details of how to kill yourself? Response not required due to responses to other questions. 6. If yes, at any time in the past month did you intend to carry out this plan? Response not required due to responses to other questions. 7. In your lifetime, have you ever done anything, started to do anything, or prepared to do anything to end your life (for example, collected pills, obtained a gun, gave away valuables, went to the roof but didn't jump)? No 8. If YES, was this within the past 3 months? Response not required due to responses to other questions. Medication Reconciliation: Outpatient: Has the patient been taking medications as documented in the EMLR? YES: The patient has been taking medications as documented in the EMLR. Essential Medication List for Review used to complete this medication reconciliation. INCLUDED IN THIS LIST: Alphabetical list of active outpatient prescriptions dispensed from this [place] (local) and dispensed from another [place] or [facility] facility (remote) as well as inpatient orders (local, pending and active), local clinic medications, locally documented non-VA medications, and local prescriptions that have or been discontinued in the past 90 days. - All changes in medications, including all non-VA/Herbal/OTC medications were entered into CPRS. - If there were any medications the patient should no longer take, they were discontinued. - The patient/caregiver was instructed to update this list, discard old lists, and take this list to the next appointment, whether with a VA or non-VA provider. /jones/ Park Colón MD INTERNAL MEDICINE and RHEUMATOLOGY Signed: 09/21/2024 14:21 PARK COLÓN [place]
--- OUTSIDE RECORDS SUMMARY | 2024-10-18 15:11 | XMS_ITS | Encounter Summary ---
Author Name [facility] [place] [facility] [place] [facility] [place] [facility] [place] Address [address] [place] [address] Care Team Providers Care Cable Respooler Name Role Phone HOLT RENETTAAD Primary Care Provider Andres liang Insurance Providers: [...] PART B Jan 19, 2024 PART B [id number] MARIPOSA PAIZ JR PATIENT Selected Encounter This section includes the information on record at [place] for the Encounter. Date/Time Encounter Type Encounter Description Reason Provider Source Oct 06, 2024 01:00 PM MTMS BY PHARM ADDL 15 MIN CLINICAL PHARMACY ICD-10-CM E78.00 Pure hypercholesterole kendra, unspecified JAYLEN FLETCHER [facility] Encounter Template Text not used by [place] Assessments - Encounter Diagnoses This section includes the primary and secondary diagnoses documented for the Encounter. Date/Time Primary/Secondary Diagnosis Diagnosis Name Provider Source Oct 06, 2024 01:25 PM PRIMARY Pure hypercholesterolemi a, unspecified JAYLEN FLETCHER [facility] Oct 06, 2024 01:25 PM SECONDARY Essential (primary) hypertension JAYLEN FLETCHER [facility] Oct 06, 2024 01:25 PM SECONDARY Other obesity due to excess calories JAYLEN FLETCHER [facility] Plan of Treatment: Future Appointments (+ 6 months) and Future Tests (+/- 45 days) The Plan of Treatment section includes future care activities for the patient from all [facility]. This section includes future appointments and future orders which are active, pending or scheduled. Future Appointments This section includes appointments that were scheduled to occur 6 months from the date of the Encounter, up to a maximum of 20 appointments. The data comes from all [facility]. Appointment Date/Time Appointment Type Appointme nt Facility Name Dec 27, 2024 12:30 PM AMBULATORY - MEDICINE [facility] Mar 22, 2025 01:30 PM AMBULATORY - MEDICINE [facility] Active, Pending, and Scheduled Orders This section includes a listing of several types of active, pending, and scheduled orders, including clinic medications orders, diagnostic test orders, procedure orders and consult orders; where the start date of the order is 45 days before the date of the Encounter or 45 days after the date of theEncounter. The data comes from all [facility]. Test Date/Time Test Type Test Details Facility Name Oct 06, 2024 01:16 PM Consult Order OPTOMETRY/ [facility] OUTPT Cons Pilot [facility] Choice [facility] Lab Results: +/- 30 days of the encounter This section includes the Chemistry and Hematology Lab Results on record with [place] for the patient. Radiology Reports and Pathology Reports are provided separately, in subsequent sections. Lab Results This section contains the Chemistry/Hematology Results that were resulted 30 days before or 30 daysafter the date of the Encounter. Date/Time Source Result Type Result - Unit Interpretation Reference Range Comment Sep 21, 2024 02:19 PM [facility] LIVER FUNCTION Specimen Type: SERUM No comment entered. Ordering Provider: LUCERO HOLT Report Released Date/Time: Aug 15, 2024 11:30 AM Reporting Lab: [facility] [address] [facility] [address] Performing Lab: [address] [address] PROTEIN,TOTAL 7.5 g/dL 6.0-8.3 ALBUMIN 4.4 g/dL 3.5-5.0 ALKALINE PHOSPHATASE 48 U/L 40-150 AST 20 U/L 5-34 ALT 24 U/L BILIRUBIN, TOTAL 1.0 mg/dL 0.2-1.2 Sep 21, 2024 02:19 PM [facility] CBC AND DIFF (AUTO) Specimen Type: BLOOD No comment entered. Ordering Provider: LUCERO HOLT Report Released Date/Time: Aug 15, 2024 11:30 AM Reporting Lab: [facility] [address] [facility] [address] Performing Lab: [facility] [address] [facility] [address] WBC 10.87 10*3/uL 4.50-11.00 RBC 5.00 10*6/uL [...] 10*3/uL 0.00-0.00 Sep 21, 2024 02:19 PM [facility] HEMOGLOBIN A1C PANEL Specimen Type: BLOOD Comment: [...] Aug 15, 2024 11:30 AM Reporting Lab: [place] [facility] [address] [facility] [address] Performing Lab: [place] [facility] [address] [facility] [address] HEMOGLOBIN A1C 5.4 4.0-5.6 Sep 21, 2024 02:19 PM [facility] TSH Specimen Type: SERUM No comment entered. Ordering Provider: LUCERO HOLT Report Released Date/Time: Aug 15, 2024 11:30 AM Reporting Lab: [facility] [address] [facility] [address] Performing Lab: [facility] [address] [facility] [address] TSH 1.53 u[IU]/mL 0.35-5.00 Sep 21, 2024 02:19 PM [facility] CREATININE (eGFR 2020) Specimen Type: SERUM No comment entered. Ordering Provider: LUCERO HOLT Report Released Date/Time: Aug 15, 2024 11:30 AM Reporting Lab: [facility] [address] [facility] [address] Performing Lab: [facility] [place] [address] [address] CREATININE, Serum 0.81 mg/dL 0.50-1.40 eGFR(CKD-EPI 2020) >90 mL/min >60 Sep 21, 2024 02:19 PM [facility] MICROALBUMIN CREATININE RATIO PANEL Specimen Type: URINE No comment entered. Ordering Provider: LUCERO HOLT Report Released Date/Time: Aug 15, 2024 11:30 AM Reporting Lab: [facility] [address] [facility] [address] Performing Lab: [facility] [address] [facility] [address] MICROALBUMIN/C REATININE RATIO 9.9 mg/g 0-29.9 MICROALBUMIN,Q UANTITATIVE 1.3 mg/dL RR UNAVAIL CREATININE URINE 131.48 mg/dL Sep 21, 2024 02:19 PM [facility] BASIC METABOLIC PANEL (non-fasting) Specimen Type: SERUM No comment entered. Ordering Provider: PARK COLÓN Report Released Date/Time: Sep 21, 2024 02:12 PM Reporting Lab: [facility] [address] [facility] [address] Performing Lab: [address] [address] UREA NITROGEN 16 mg/dL 7-25 GLUCOSE 95 mg/dL 65-100 SODIUM 138 mmol/L 135-145 POTASSIUM 4.5 mmol/L 3.5-5.0 CHLORIDE 106 mmol/L 100-110 CO2 23 meq/L 20-30 CALCIUM 9.8 mg/dL 8.5-10.2 CREATININE, Serum 0.80 mg/dL 0.50-1.40 eGFR(CKD-EPI 2020) >90 mL/min >60 Sep 21, 2024 02:19 PM [facility] LIPID PANEL, NON FASTING Specimen Type: SERUM No comment entered. Ordering Provider: PARK COLÓN Report Released Date/Time: Sep 21, 2024 02:12 PM Reporting Lab: [facility] [address] [facility] [facility] [address] Performing Lab: [address] [address] CHOLESTEROL 110 mg/dL TRIGLYCERIDE 82 mg/dL 0-150 LDL calculated 59 mg/dL 0-129 CHOL/HDL 3.1 HDL CHOLESTEROL 35 mg/dL L 40-60 Social History: Smoking Status (Most current) and Tobacco Use (All prior to encounter date) This section includes the most current, and the historical, smoking and tobacco- related health factors from the [place] facility where the Encounter took place. Current Smoking Status This section includes the most current smoking, or tobacco-related health factor, from the [place] facility where the Encounter took place. Date/Time Current Smoking Status Comment Facil [facility] May 10, 2024 01:30 PM [place]-TOBACCO NEVER USED [facility] Advance Directives: All historical and current Section Date Range: From patient's date of to the date document was created. This section includes ALL of a patient's completed or amended [facility] Advance and Rescinded Directives. The entries below indicate that a directive exists for the patient, but an actual copy is not included with this document. The data comes from all [place] facilities. Date Advance Directives Provider Source Apr 28, 2024 ADVANCE DIRECTIVE [facility]WAKRYSTALREINALDO [facility] IELD Encounter Notes: All associated encounter notes This section contains the clinical notes associated to the Encounter. Date/Time Encounter Note(s) Provider Source Oct 06, 2024 01:53 PM ADDENDUM: LOCAL TITLE: Addendum STANDARD TITLE: ADDENDUM DATE OF NOTE: OCT 06, 2024@13:53:10 ENTRY DATE: OCT 06, 2024@13:53:11 AUTHOR: MARLON FLETCHER COSIGNER: URGENCY: STATUS: COMPLETED Attn pcp/Dr. Colón Pt was seen on 09/21/24 per notes: A/P: All instructions were explained for the , who expressed understanding and agreement. 1. HTN--will increase lisinopril to 40 mg daily; The lisinopril Rx still reads 20 mg daily Please clarify whether or not you wish for pt to increase the dose of lisinopril. thank you very much !! /jones/ MARLON FLETCHER CLINICAL RAILWAY SWITCH OPERATOR Signed: 10/06/2024 13:53 Receipt Acknowledged By: 10/17/2024 16:09 /jones/ Park Colón MD INTERNAL MEDICINE and RHEUMATOLOGY --- Original Document --- 10/06/24 PHARMACY CLINIC NOTE: Time Spent: 40 Minutes Visit Type: F2F visit Patient referred by PCP for consideration of weight management medications. --------- BMI: 42.4 - baseline BMI: 41.8 Most recent BP: 151/80 (06/09/2024 13:31) 142/94 Subjective: Pt lost 4 lbs. Pt has procedure w/ urology Urologist Dr. Jimenes non- [place] - urology. Pt is continuing w/ lifestyle changes A/P: All instructions were explained for the , who expressed understanding and agreement. 1. HTN--will increase lisinopril to 40 mg daily; 2. Hyperlipidemia--good control on meds 3. Hx CVA 08/2023--continue risk factor mitigation 4. BPH--continue tamsulosin 5. HCM--colon screen--FIT test negative 05/11/2024--continue annually Prostate screen--PSA normal 05/10/2024--continue annually 6. FOllow up 6 months, or as needed Per Prev: Pt presents for the initial visit for weight management review and options. Pt states he has gained weight over last 20 lbs. Pt had stroke 1 year ago - diagnosed w/ CVA ; not following w/ button maker at this time. Transportation is difficult for [place] - he uses a bus. Pt also has HTN. 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 He livesb by himself in [place]. --------- [facility]: Code Description I63.9 CVA - Cerebrovascular accident ([facility] [id number]) I10. Hypertension ([facility] [id number]) E78.00 Hypercholesterolemia ([facility] [id number]) Z12.11 Screening for malignant neoplasm of colon done ([facility] [id number]) R69. athridities (ICD-10-CM R69.) R94.31 Ambulatory ECG abnormal ([facility] [id number]) ALLERGIES/ADRs: Patient has answered NKA Hypertension - Lisinopril 20 mg daiy - pt did not reeive new rx Obesity - MOVE ! consult - Optometry consult - metformin 1000 mg daily --------- Reviewed chart and noted the following: [x ] Patient has confounding comorbidities of: -HTN, DM, PILY, dyslipidemia, metabolic syndrome, OA, JIMÉNEZ [ ] EtOH and tobacco use [ ] Patient desiring oral medication Active Outpatient Medications (including Supplies): Issue Date Status Last Fill Active Outpatient Medications Refills Expiration 1) ASPIRIN 81MG EC TAB Qty: 120 for 90 days ACTIVE Issue: 06/09/24 Sig: TAKE ONE TABLET BY MOUTH ONCE DAILY TO Refills: 3 Last : 06/09/24 PREVENT STROKE/HEART ATTACK Expr : 06/10/25 Indication: PREVENTION FOR STROKE 2) DEPEND UNDERWEAR,MAXIMUM,MEN X-LARGE Qty: ACTIVE Issue: 06/09/24 180 for 90 days Sig: USE 1 BRIEF DIRECTED Refills: 2 Last : 06/09/24 TWICE DAILY NEEDED Expr : 06/10/25 3) LISINOPRIL 20MG TAB Qty: 60 for 60 days Sig: ACTIVE Issue: 05/10/24 TAKE ONE TABLET BY MOUTH ONCE DAILY TO Refills: 2 Last : 07/15/24 CONTROL BLOOD PRESSURE Expr : 05/11/25 Indication: FOR HIGH BLOOD PRESSURE 4) METFORMIN HCL 500MG 24HR SA TAB Qty: 173 for ACTIVE Issue: 06/09/24 90 days Sig: TAKE ONE TABLET BY MOUTH ONCE Refills: 0 Last : 06/09/24 DAILY FOR 7 DAYS, THEN TAKE TWO TABLETS ONCE Expr : 09/07/24 DAILY FOR 83 DAYS Indication: FOR WEIGHT LOSS PERTINENT LABS: ---- GENERAL CHEMISTRY ---- SERUM Oct 21 Oct 21 Reference 2023 2023 14:47 14:45 Units Ranges GLUCOSE 100 mg/dL 65 - 100 BUN 19 mg/dL 7 - 25 CREATININE 0.84 mg/dL .5 - 1.4 eGFR(IDMS) Ref: >=60 CREAT mg/dL .5 - 1.5 eGFR See Eval Ref: See Eval Sodium 141 mmol/L 135 - 145 K+/Pot 4.3 mmol/L 3.5 - 5 CL 106 mmol/L 100 - 110 CO2 27 mEq/L 20 - 30 CA 9.8 mg/dL 8.5 - 10.2 UricAci 7.8 H mg/dL 3.5 - 7.2 NH3/Amm PO4 mg/dL 2.5 - 5 T. PROT 7.2 g/dL 6 - 8.3 ALBUMIN 4.3 g/dL 3.5 - 5 T BILI 0.9 mg/dL .2 - 1.2 D. BILI mg/dL 0 - .5 AST 21 U/L 5 - 34 ALT 26 U/L <6 - 55 GGT U/L 10 - 65 ALK MARIA D 44 U/L 40 - 150 AMYLASE U/L 25 - 125 MAG mg/dL 1.6 - 2.6 ACETONE Ref: Neg T3 Total ng/dL 35 - 193 ---- LIPID PANEL ---- SERUM Oct 21 Oct 21 Reference 2023 2023 14:55 14:45 Units Ranges CHOL 161 164 mg/dL <7 - 199 TRIG 152 H 156 H mg/dL 0 - 150 HDL 40 41 mg/dL 40 - 60 LDL-d mg/dL <10 - 120 LDL 91 92 mg/dL 0 - 129 CHO/HDL 4.0 4.0 Comments: a i a. Evaluation for TRIG: ---- HEMOGLOBIN A1C ---- BLOOD May 10 Reference 2023 14:45 Units Ranges HGB-A1c 5.1 % 4 - 5.6 Comments: f Patient must meet the following criteria to be eligible for weight loss medication management at [facility]: [ ] Verifiable participation in a comprehensive lifestyle intervention that targets all three aspects of weight management: diet, physical activity, behavioral changes (i.e. MOVE program, Claire, weight watchers) [x ] BMI is greater than or equal to 30 kg/m2 OR BMI is greater than or equal to 27 kg/m2 with at least one weight-related comorbidity [ ] Medication regimen has been reviewed to identify and discontinue medications associated with weight gain when clinically safe and appropriate Medications Associated with Weight Gain: ( ) anticonvulsants: ( ) antidepressants ( ) antipyschotics ( ) beta-blockers: ( ) glucocorticoids ( ) long-acting injectable contraceptives ( ) sulfonylureas ( ) insulin ( ) thiazolidinediones Common Exclusion Criteria: [n/a ] [ ] Concurrent use of another medication FDA approved for weight loss Review of Data, Drug Interactions, PBM Criteria for Use (CFU) and National PBM Guidance on Selection of a Weight Management Medication: 1. Bupropion/Naltrexone (Contrave): Exclusion criteria: [ ] Uncontrolled hypertension [ ] History of seizure disorder, bulimia, or anorexia nervosa [ ] Concurrent opioid use or use of opioids within the last 7 to 10 days [ ] Undergoing abrupt discontinuation of alcohol, benzodiazepines, barbiturates, and antiepileptic drugs [ ] Concurrent use of another form of naltrexone and/or bupropion [ ] Concurrent use or use of a monoamine oxidase inhibitor in the past 14 days [ ] Concurrent use of a CYP2B6 inducer (e.g., ritonavir, efavirenz, phenobarbital, phenytoin, etc.) [ ] End stage renal disease [ ] Severe hepatic impairment [ ] Major depressive disorder especially in patients 24 years of age or younger (unless a mental health consultation supports benefits of naltrexone/bupropion in patients at risk for suicidal thoughts or behaviors) Additional considerations: - not likely to achive desirable weight loss. 2. Phentermine/Topiramate (Qsymia): Exclusion criteria: [ ] Glaucoma [ ] Hyperthyroidism [ ] Recent cardiac or cerebrovascular event (within past 6 months) [ ] Unstable angina [ ] End stage renal disease on dialysis [ ] Severe hepatic impairment (Child-Moran Class C) [ ] History of cholelithiasis (within the past 6 months) [ ] History of nephrolithiasis [ ] Patient has history of suicidal attempts or active suicidal ideation (unless mental health consultation supports benefit of phentermine/ topiramate in patient with history of suicide attempts or recent suicidal ideation) [ ] Use of a monoamine oxidase inhibitor within the past 14 days [ ] Concomitant use of an oral carbonic anhydrase inhibitor [ ] Prescribed topiramate for another condition (e.g., seizures, migraine headache) where the addition of phentermine/topiramate would exceed a total dose of 400 mg topiramate per day - not likely to achive desirable weight loss. 3. Orlistat Exclusion criteria: [ ] Chronic malabsorption syndrome or chronic diarrhea [ ] History of cholestasis, hyperoxaluria or calcium oxalate nephrolithiasis - pt does not like this option 4. Liraglutide (Saxenda): Exclusion criteria: [ ] Type 1 diabetes [ ] Personal or family history of medullary thyroid carcinoma or with Multiple Endocrine Neoplasia syndrome type 2 (MEN 2) [ ] Severe gastrointestinal dysmotility, including gastroparesis [ ] History of pancreatitis (does not pertain to patients for whom the cause of pancreatitis is known and no longer presents a risk) [ ] Patient has a history of suicidal attempts or active suicidal ideation (unless a mental health consultation supports benefits of liraglutide in a patient with a history of suicide attempts or recent suicidal ideation) Additional inclusion criteria: The answer to ONE of the following must be fulfilled in order to meet criteria for liraglutide (Saxenda). [ ] Patient has had an inadequate response, contraindication or intolerance to all [place] National Formulary agents for chronic weight management (e.g., phentermine/topiramate; naltrexone/bupropion; orlistat) [ ] Patient meets diagnostic criteria for prediabetes [ ] Patient has type 2 diabetes AND is unable to use semaglutide (OZEMPIC) as per the Criteria for Use for management of diabetes 5. Semaglutide (Wegovy) Exclusion criteria: [ ] 1 Type 1 diabetes [ ] Personal or family history of medullary thyroid carcinoma or with Multiple Endocrine Neoplasia syndrome type 2 [ ] Severe gastrointestinal dysmotility, including gastroparesis [ ] History of pancreatitis (does not pertain to patients for whom the cause of pancreatitis is known and no longer presents a risk) [ ] The patient has a history of suicidal attempts or active suicidal ideation (unless a mental health consultation supports benefits of semaglutide in a patient with a history of suicide attempts or recent suicidal ideation) Additional inclusion criteria: The answer to ONE of the following must be fulfilled in order to meet criteria for semaglutide (Wegovy). [ ] Patient has an inadequate response, contraindication or intolerance to at least two [place] National Formulary agents for chronic weight management [ ] Patient with BMI >/= 40 OR BMI 35 to < 40 with a significant or difficult to manage weight-related condition or is unable to achieve weight loss goals required for surgery [ ] Patient has type 2 diabetes treated with semaglutide (Ozempic) AND requires additional weight loss to achieve great than or equal to 5% reduction in initial body weight NUTRITION; B: 2 eggs adn 2 toasts ; L: soup D: pasta pt cooks ; rice Snacking: cut down on snacks drinks: water, coffee, or tea Exercise: in summer rides bike for 1 hour ; [place] Social History: ETOH: 1-3 drinks 2-3x week beer SMOKING: denies Marijuana: denies Illicts: denies No Hx of pancreatitis or thyroid cancer optometry last visit 10 years ago ; will place consult weight: 05/2024 => 286.6 lbs weight: 09/2024 => 282 lbs goal weight: 220 lbs SUMMARY OF RECOMMENDATIONS: Reviewed the requiremenet of participation in the MOVe program. Pt was not thrilled initially but after discussion he agreed. will place consult. Reviewed also need for optometry exam will place consult as well. Pt is not highly active. Reviewed nutrition. He is likely a good candidate for GLP-1 therapy considering his CVD history and HTN. BMI very high >40. f/up in 2 months. Reviewed all of the requirements pt must meet prior to submission of NF. Date: 10/06/24 Reviewed all of the TlC pt is doing at this time. All of which account for some weight lost by . He is highly motivated. Recommend to place MOVE consult - pt would like to see F2F visits. Explained to the if he wishes to [facility] he needs to attend total of 4 visits prior to placing NF /PAF. Pt has no problem w/ that. Pt also wants to be seen by optometry. Reviewed nutrition. Pt plans on increasing the physical activity w/ the nicer weather now. f/up in December Attn pcp/Dr. Colón Pt was seen on 09/21/24 per notes: A/P: All instructions were explained for the , who expressed understanding and agreement. 1. HTN--will increase lisinopril to 40 mg daily; The lisinopril Rx still reads 20 mg daily Please clarify whether or not you wish for pt to increase the dose of lisinopril. thank you very much !! Obesity - MOVE ! consult - Optometry consult - CONTINUE metformin 1000 mg daily HTN: -CONTINUE lisinopril 20 mg daily Hyperlipidemia -COTNINUE Atorvastastin 20 mg daily next scheduled f/up: December PBM PharmD Pharmacotherapy Rem V12: PHARMACIST INTERVENTIONS: OBESITY/WEIGHT MANAGEMENT Medication monitoring, no dosage change required, continue to monitor and assess /jones/ MARLON FLETCHER CLINICAL RAILWAY SWITCH OPERATOR Signed: 10/06/2024 13:50 Receipt Acknowledged By: 10/09/2024 07:50 /jones/ IVETT HOLT NP NURSE PRACTITIONER 10/06/2024 ADDENDUM STATUS: COMPLETED SPOKE w/ Lawanda the corporate coordinator. Pt missed first session now the next in person session is going to start in March. Left pt vm requesting if he wishes to post pone our appt until after he attends 4 of the MOVE sessions. thank you /jones/ MARLON FLETCHER CLINICAL RAILWAY SWITCH OPERATOR Signed: 10/06/2024 13:52 MARLON FLETCHER [facility] Oct 06, 2024 01:08 PM PHARMACY OUTPATIEN T NOTE: LOCAL TITLE: PHARMACY CLINIC NOTE STANDARD TITLE: PHARMACY OUTPATIENT NOTE DATE OF NOTE: OCT 06, 2024@13:08 ENTRY DATE: OCT 06, 2024@13:09:13 AUTHOR: MARLON FLETCHER EXP COSIGNER: URGENCY: STATUS: COMPLETED PHARMACY CLINIC NOTE Has ADDENDA Time Spent: 40 Minutes Visit Type: F2F visit Patient referred by PCP for consideration of weight management medications. --------- BMI: 42.4 - baseline BMI: 41.8 Most recent BP: 151/80 (06/09/2024 13:31) 142/94 Subjective: Pt lost 4 lbs. Pt has procedure w/ urology Urologist Dr. Jimenes non- [place] - urology. Pt is continuing w/ lifestyle changes A/P: All instructions were explained for the , who expressed understanding and agreement. 1. HTN--will increase lisinopril to 40 mg daily; 2. Hyperlipidemia--good control on meds 3. Hx CVA 08/2023--continue risk factor mitigation 4. BPH--continue tamsulosin 5. HCM--colon screen--FIT test negative 05/11/2024--continue annually Prostate screen--PSA normal 05/10/2024--continue annually 6. FOllow up 6 months, or as needed Per Prev: Pt presents for the initial visit for weight management review and options. Pt states he has gained weight over last 20 lbs. Pt had stroke 1 year ago - diagnosed w/ CVA ; not following w/ button maker at this time. Transportation is difficult for [place] - he uses a bus. Pt also has HTN. 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 He livesb by himself in [place]. --------- [facility]: Code Description I63.9 CVA - Cerebrovascular accident ([facility] [id number]) I10. Hypertension ([facility] [id number]) E78.00 Hypercholesterolemia ([facility] [id number]) Z12.11 Screening for malignant neoplasm of colon done ([facility] [id number]) R69. athridities (ICD-10-CM R69.) R94.31 Ambulatory ECG abnormal ([facility] [id number]) ALLERGIES/ADRs: Patient has answered NKA Hypertension - Lisinopril 20 mg daiy - pt did not reeive new rx Obesity - MOVE ! consult - Optometry consult - metformin 1000 mg daily --------- Reviewed chart and noted the following: [x ] Patient has confounding comorbidities of: -HTN, DM, PILY, dyslipidemia, metabolic syndrome, OA, JIMÉNEZ [ ] EtOH and tobacco use [ ] Patient desiring oral medication Active Outpatient Medications (including Supplies): Issue Date Status Last Fill Active Outpatient Medications Refills Expiration 1) ASPIRIN 81MG EC TAB Qty: 120 for 90 days ACTIVE Issue: 06/09/24 Sig: TAKE ONE TABLET BY MOUTH ONCE DAILY TO Refills: 3 Last : 06/09/24 PREVENT STROKE/HEART ATTACK Expr : 06/10/25 Indication: PREVENTION FOR STROKE 2) DEPEND UNDERWEAR,MAXIMUM,MEN X-LARGE Qty: ACTIVE Issue: 06/09/24 180 for 90 days Sig: USE 1 BRIEF DIRECTED Refills: 2 Last : 06/09/24 TWICE DAILY NEEDED Expr : 06/10/25 3) LISINOPRIL 20MG TAB Qty: 60 for 60 days Sig: ACTIVE Issue: 05/10/24 TAKE ONE TABLET BY MOUTH ONCE DAILY TO Refills: 2 Last : 07/15/24 CONTROL BLOOD PRESSURE Expr : 05/11/25 Indication: FOR HIGH BLOOD PRESSURE 4) METFORMIN HCL 500MG 24HR SA TAB Qty: 173 for ACTIVE Issue: 06/09/24 90 days Sig: TAKE ONE TABLET BY MOUTH ONCE Refills: 0 Last : 06/09/24 DAILY FOR 7 DAYS, THEN TAKE TWO TABLETS ONCE Expr : 09/07/24 DAILY FOR 83 DAYS Indication: FOR WEIGHT LOSS PERTINENT LABS: ---- GENERAL CHEMISTRY ---- SERUM May 10 May 10 Reference 2023 2023 14:47 14:45 Units Ranges GLUCOSE 100 mg/dL 65 - 100 BUN 19 mg/dL 7 - 25 CREATININE 0.84 mg/dL .5 - 1.4 eGFR(IDMS) Ref: >=60 CREAT mg/dL .5 - 1.5 eGFR See Eval Ref: See Eval Sodium 141 mmol/L 135 - 145 K+/Pot 4.3 mmol/L 3.5 - 5 CL 106 mmol/L 100 - 110 CO2 27 mEq/L 20 - 30 CA 9.8 mg/dL 8.5 - 10.2 UricAci 7.8 H mg/dL 3.5 - 7.2 NH3/Amm PO4 mg/dL 2.5 - 5 T. PROT 7.2 g/dL 6 - 8.3 ALBUMIN 4.3 g/dL 3.5 - 5 T BILI 0.9 mg/dL .2 - 1.2 D. BILI mg/dL 0 - .5 AST 21 U/L 5 - 34 ALT 26 U/L <6 - 55 GGT U/L 10 - 65 ALK MARIA D 44 U/L 40 - 150 AMYLASE U/L 25 - 125 MAG mg/dL 1.6 - 2.6 ACETONE Ref: Neg T3 Total ng/dL 35 - 193 ---- LIPID PANEL ---- SERUM Oct 21 Oct 21 Reference 2023 2023 14:55 14:45 Units Ranges CHOL 161 164 mg/dL <7 - 199 TRIG 152 H 156 H mg/dL 0 - 150 HDL 40 41 mg/dL 40 - 60 LDL-d mg/dL <10 - 120 LDL 91 92 mg/dL 0 - 129 CHO/HDL 4.0 4.0 Comments: a i a. Evaluation for TRIG: ---- HEMOGLOBIN A1C ---- BLOOD Oct Reference 2023 14:45 Units Ranges HGB-A1c 5.1 % 4 - 5.6 Comments: f Patient must meet the following criteria to be eligible for weight loss medication management at [facility]: [ ] Verifiable participation in a comprehensive lifestyle intervention that targets all three aspects of weight management: diet, physical activity, behavioral changes (i.e. MOVE program, Claire, weight watchers) [x ] BMI is greater than or equal to 30 kg/m2 OR BMI is greater than or equal to 27 kg/m2 with at least one weight-related comorbidity [ ] Medication regimen has been reviewed to identify and discontinue medications associated with weight gain when clinically safe and appropriate Medications Associated with Weight Gain: ( ) anticonvulsants: ( ) antidepressants ( ) antipyschotics ( ) beta-blockers: ( ) glucocorticoids ( ) long-acting injectable contraceptives ( ) sulfonylureas ( ) insulin ( ) thiazolidinediones Common Exclusion Criteria: [n/a ] [ ] Concurrent use of another medication FDA approved for weight loss Review of Data, Drug Interactions, PBM Criteria for Use (CFU) and National PBM Guidance on Selection of a Weight Management Medication: 1. Bupropion/Naltrexone (Contrave): Exclusion criteria: [ ] Uncontrolled hypertension [ ] History of seizure disorder, bulimia, or anorexia nervosa [ ] Concurrent opioid use or use of opioids within the last 7 to 10 days [ ] Undergoing abrupt discontinuation of alcohol, benzodiazepines, barbiturates, and antiepileptic drugs [ ] Concurrent use of another form of naltrexone and/or bupropion [ ] Concurrent use or use of a monoamine oxidase inhibitor in the past 14 days [ ] Concurrent use of a CYP2B6 inducer (e.g., ritonavir, efavirenz, phenobarbital, phenytoin, etc.) [ ] End stage renal disease [ ] Severe hepatic impairment [ ] Major depressive disorder especially in patients 24 years of age or younger (unless a mental health consultation supports benefits of naltrexone/bupropion in patients at risk for suicidal thoughts or behaviors) Additional considerations: - not likely to achive desirable weight loss. 2. Phentermine/Topiramate (Qsymia): Exclusion criteria: [ ] Glaucoma [ ] Hyperthyroidism [ ] Recent cardiac or cerebrovascular event (within past 6 months) [ ] Unstable angina [ ] End stage renal disease on dialysis [ ] Severe hepatic impairment (Child-Moran Class C) [ ] History of cholelithiasis (within the past 6 months) [ ] History of nephrolithiasis [ ] Patient has history of suicidal attempts or active suicidal ideation (unless mental health consultation supports benefit of phentermine/ topiramate in patient with history of suicide attempts or recent suicidal ideation) [ ] Use of a monoamine oxidase inhibitor within the past 14 days [ ] Concomitant use of an oral carbonic anhydrase inhibitor [ ] Prescribed topiramate for another condition (e.g., seizures, migraine headache) where the addition of phentermine/topiramate would exceed a total dose of 400 mg topiramate per day - not likely to achive desirable weight loss. 3. Orlistat Exclusion criteria: [ ] Chronic malabsorption syndrome or chronic diarrhea [ ] History of cholestasis, hyperoxaluria or calcium oxalate nephrolithiasis - pt does not like this option 4. Liraglutide (Saxenda): Exclusion criteria: [ ] Type 1 diabetes [ ] Personal or family history of medullary thyroid carcinoma or with Multiple Endocrine Neoplasia syndrome type 2 (MEN 2) [ ] Severe gastrointestinal dysmotility, including gastroparesis [ ] History of pancreatitis (does not pertain to patients for whom the cause of pancreatitis is known and no longer presents a risk) [ ] Patient has a history of suicidal attempts or active suicidal ideation (unless a mental health consultation supports benefits of liraglutide in a patient with a history of suicide attempts or recent suicidal ideation) Additional inclusion criteria: The answer to ONE of the following must be fulfilled in order to meet criteria for liraglutide (Saxenda). [ ] Patient has had an inadequate response, contraindication or intolerance to all [place] National Formulary agents for chronic weight management (e.g., phentermine/topiramate; naltrexone/bupropion; orlistat) [ ] Patient meets diagnostic criteria for prediabetes [ ] Patient has type 2 diabetes AND is unable to use semaglutide (OZEMPIC) as per the Criteria for Use for management of diabetes 5. Semaglutide (Wegovy) Exclusion criteria: [ ] 1 Type 1 diabetes [ ] Personal or family history of medullary thyroid carcinoma or with Multiple Endocrine Neoplasia syndrome type 2 [ ] Severe gastrointestinal dysmotility, including gastroparesis [ ] History of pancreatitis (does not pertain to patients for whom the cause of pancreatitis is known and no longer presents a risk) [ ] The patient has a history of suicidal attempts or active suicidal ideation (unless a mental health consultation supports benefits of semaglutide in a patient with a history of suicide attempts or recent suicidal ideation) Additional inclusion criteria: The answer to ONE of the following must be fulfilled in order to meet criteria for semaglutide (Fabian). [ ] Patient has an inadequate response, contraindication or intolerance to at least two [place] National Formulary agents for chronic weight management [ ] Patient with BMI >/= 40 OR BMI 35 to < 40 with a significant or difficult to manage weight-related condition or is unable to achieve weight loss goals required for surgery [ ] Patient has type 2 diabetes treated with semaglutide (Ozempic) AND requires additional weight loss to achieve great than or equal to 5% reduction in initial body weight NUTRITION; B: 2 eggs adn 2 toasts ; L: soup D: pasta pt cooks ; rice Snacking: cut down on snacks drinks: water, coffee, or tea Exercise: in summer rides bike for 1 hour ; [place] Social History: ETOH: 1-3 drinks 2-3x week beer SMOKING: denies Marijuana: denies Illicts: denies No Hx of pancreatitis or thyroid cancer optometry last visit 10 years ago ; will place consult weight: 05/2024 => 286.6 lbs weight: 09/2024 => 282 lbs goal weight: 220 lbs SUMMARY OF RECOMMENDATIONS: Reviewed the requiremenet of participation in the MOVe program. Pt was not thrilled initially but after discussion he agreed. will place consult. Reviewed also need for optometry exam will place consult as well. Pt is not highly active. Reviewed nutrition. He is likely a good candidate for GLP-1 therapy considering his CVD history and HTN. BMI very high >40. f/up in 2 months. Reviewed all of the requirements pt must meet prior to submission of NF. Date: 10/06/24 Reviewed all of the TlC pt is doing at this time. All of which account for some weight lost by . He is highly motivated. Recommend to place MOVE consult - pt would like to see F2F visits. Explained to the if he [facility] 4 visits prior to placing NF /PAF. Pt has no problem w/ that. Pt also wants to be seen by optometry. Reviewed nutrition. Pt plans on increasing the physical activity w/ the nicer weather now. f/up in December Attn pcp/Dr. Colón Pt was seen on 09/21/24 per notes: A/P: All instructions were explained for the , who expressed understanding and agreement. 1. HTN--will increase lisinopril to 40 mg daily; The lisinopril Rx still reads 20 mg daily Please clarify whether or not you wish for pt to increase the dose of lisinopril. thank you very much !! Obesity - MOVE ! consult - Optometry consult - CONTINUE metformin 1000 mg daily HTN: -CONTINUE lisinopril 20 mg daily Hyperlipidemia -COTNINUE Atorvastastin 20 mg daily next scheduled f/up: December PBM PharmD Pharmacotherapy Rem V12: PHARMACIST INTERVENTIONS: OBESITY/WEIGHT MANAGEMENT Medication monitoring, no dosage change required, continue to monitor and assess /jones/ MARLON FLETCHER CLINICAL RAILWAY SWITCH OPERATOR Signed: 10/06/2024 13:50 Receipt Acknowledged By: 10/09/2024 07:50 /jones/ IVETT HOLT PRESS LEADER NURSE PRACTITIONER 10/06/2024 ADDENDUM STATUS: COMPLETED SPOKE w/ Lawanda the corporate coordinator. Pt missed first session now the next in person session is going to start in March. Left pt vm requesting if he wishes to post pone our appt until after he attends 4 of the MOVE sessions. thank you /rosalio FLETCHER CLINICAL RAILWAY SWITCH OPERATOR Signed: 10/06/2024 13:52 10/06/2024 ADDENDUM STATUS: COMPLETED Attn pcp/Dr. Colón Pt was seen on 09/21/24 per notes: A/P: All instructions were explained for the , who expressed understanding and agreement. 1. HTN--will increase lisinopril to 40 mg daily; The lisinopril Rx still reads 20 mg daily Please clarify whether or not you wish for pt to increase the dose of lisinopril. thank you very much !! /rosalio FLETCHER CLINICAL RAILWAY SWITCH OPERATOR Signed: 10/06/2024 13:53 Receipt Acknowledged By: 10/17/2024 16:09 /rosalio Colón MD INTERNAL MEDICINE and RHEUMATOLOGY 10/17/2024 ADDENDUM STATUS: COMPLETED lisinopril 40 mg daily ordered. /rosalio Colón MD INTERNAL MEDICINE and RHEUMATOLOGY Signed: 10/17/2024 16:12 MARLON FLETCHER RICE
--- OUTSIDE RECORDS SUMMARY | 2024-10-18 15:11 | XMS_ITS | Continuity of Care Document ---
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 It does not include entries that were removed or entered in error. Problem Status Onset Date Problem Type Date of Resolution Comments Source Ambulatory ECG abnormal Active Condition May 10, 2024 Entered By: HONEY SCHNEIDER Comment: Sinus w/ 1st Deg AV Blk and PVC's; No IschemiaMay 10, 2024 Entered By: HONEY SCHNEIDER Comment: Ventric Rate 78 (no A FIB) [place] athridities Active Condition May 10, 2024 Entered By: HONEY SCHNEIDER Comment: LBP and Bilat Hip Pain [place] CVA - Cerebrovascular accident Active Condition May 10, 2024 Entered By: HONEY SCHNEIDER Comment: CVA SEP 13: Seen ER, [place] SEP 13;May 10, 2024 Entered By: HONEY SCHNEIDER Comment: Cause?? - Prob ETOH [place] Hypercholesterolemia Active Condition [facility] Hypertension Active Condition May 10, 2024 Entered By: HONEY SCHNEIDER Comment: Request ECHO; Request CXR; Request US's of Carotids and Aorta in MAY 13 [place] Screening for malignant neoplasm of colon done Active Condition May 10, 2024 Entered By: HONEY SCHNEIDER Comment: Never Had One; Give FIT Card in MAY 13 [place] Diagnosis: ICD-10-CM E78.00 Pure hypercholesterolemia, unspecified Active Diagnosis [place] Diagnosis: ICD-10-CM I63.9 Cerebral infarction, unspecified Active Diagnosis [place] Diagnosis: ICD-10-CM E66.09 Other obesity due to excess calories Active Diagnosis [facility] Diagnosis: ICD-10-CM Z59.89 Other problems related to housing and economic circumstances Active Diagnosis [facility] Diagnosis: ICD-10-CM Z59.82 Transportation insecurity Active Diagnosis [place] Diagnosis: ICD-10-CM I10 Essential (primary) hypertension Active Diagnosis [facility] Diagnosis: ICD-10-CM Z71.9 Counseling, unspecified Active Diagnosis [place] Diagnosis: ICD-10-CM Z13.6 Encounter for screening for cardiovascular disorders Active Diagnosis [facility] Diagnosis: ICD-10-CM Z59.811 Housing instability, housed, with risk of homelessness Active Diagnosis [facility] (6[facility]) Medications Combined list of outpatient medications from Department of Defense and Veterans Affairs facilities.Medications provided include 1) outpatient medications from the last 15 months, and 2) patient-reported medications. Medication Details Route Status Patient Instructions Prescription Expires Prescription Number Last Dispense Date Ordering Provider Order Date Order Qty Source ASPIRIN 81MG TAB,EC TAKE ONE TABLET BY MOUTH ONCE DAILY TO PREVENT STROKE/H EART ATTACK ORAL ACTIVE 06/10/2025 [id number] MOSHE MADRID O 2023 120 [place] ATORVASTATI N CA 40MG TAB TAKE ONE-HALF TABLET BY MOUTH ONCE DAILY FOR HIGH CHOLESTE ROL ORAL ACTIVE 08/16/2025 [id number] 5 RA KECIA HOLT 2024 45 [place] LISINOPRIL 20MG TAB TAKE ONE TABLET BY MOUTH ONCE DAILY TO CONTROL BLOOD PRESSURE ORAL DISCONT INUED (EDIT) 05/11/2025 [id number] 5 MARYBETH SCHNEIDER 2023 60 [place] LISINOPRIL 40MG TAB TAKE ONE TABLET BY MOUTH ONCE DAILY TO CONTROL BLOOD PRESSURE ORAL SUSPEND ED 10/18/2025 [id number] 5 NOVEMBERLUDMILA P 2024 90 [place] METFORMIN HCL 500MG 24HR TAB,SA TAKE ONE TABLET BY MOUTH ONCE DAILY FOR 7 DAYS, THEN TAKE TWO TABLETS ONCE DAILY FOR 83 DAYS FOR WEIGHT LOSS ORAL 09/07/2024 [id number] 4 MOSHE MADRID O 2023 173 [place] TAMSULOSIN HCL 0.4MG CAP TAKE ONE CAPSULE BY MOUTH AT BEDTIME ORAL ACTIVE 09/11/2025 [id number] 5 CLAU RAMSAY 2024 90 [facility] Immunizations Combined list of available immunizations from the Department of Defense and Veterans Affairs facilities. Immunization Series Date Given Administered By Site Reaction Lot Number CVX Code Drug Senior Data Modeler Status Comments Source PNEUMOCOCCAL CONJUGATE PCV20, POLYSACCHARID E [id number] CONJUGATE, ADJUVANT, PF 2024 ANNETTE GRANT LEFT DELTO ID [id number] 216 complet ed [place] RSV, RECOMBINANT, PROTEIN SUBUNIT RSVPREF3, ADJUVANT RECONSTITUTED , 0.5 ML, PF 1 2024 ANNETTE GRANT RIGHT DELTO ID [id number] 303 complet ed [place] TDAP 2024 JUANITAANNETTE LEFT DELTO ID [id number] 115 complet ed [place] COVID-19 (MODERNA), MRNA, LNP-S, PF, 50 MCG/0.5 ML (AGES 12+ YEARS) 2023 ANNETTE GRANT LEFT DELTO ID [id number] 312 complet ed [place] INFLUENZA, HIGH-DOSE, TRIVALENT, PF 2023 CORRINE SANCHEZ LEFT DELTO ID [id number] 135 complet ed [place] Results Combined list of recent chemistry, hematology and other laboratory results from Department of Defense and Veterans Affairs, ranging from 15 months to all on record, depending upon the facility. Order Name Results Value Reference Range Date Interpretation Specimen Comments Source LIVER FUNCTION PROTEIN [MASS/VOLU ME] IN SERUM OR PLASMA 7.5 g/dL 6.0 - 8.3 09/21 Specimen Type: SERUM No comment entered. Ordering Provider: RENETTA HOLT Report Released Date/Time: Aug 15, 2024 11:30 AM Reporting Lab: [address] [address] Performing Lab: [address] [address] [facility] LIVER FUNCTION ALBUMIN [MASS/VOLU ME] IN SERUM OR PLASMA 4.4 g/dL 3.5 - 5.0 09/21 Specimen Type: SERUM No comment entered. Ordering Provider: RENETTA HOLT Report Released Date/Time: Aug 15, 2024 11:30 AM Reporting Lab: [address] [address] Performing Lab: [facility] [address] [facility] [address] [facility] LIVER FUNCTION ALKALINE PHOSPHATAS E [ENZYMATIC ACTIVITY/V OLUME] IN SERUM OR PLASMA 48 U/L 40 - 150 09/21 Specimen Type: SERUM No comment entered. Ordering Provider: RENETTA HOLT Report Released Date/Time: Aug 15, 2024 11:30 AM Reporting Lab: [facility] [address] [facility] [address] Performing Lab: [facility] [address] [facility] [address] [facility] LIVER FUNCTION ASPARTATE AMINOTRANS FERASE [ENZYMATIC ACTIVITY/V OLUME] IN SERUM OR PLASMA 20 U/L 5 - 34 09/21 Specimen Type: SERUM No comment entered. Ordering Provider: RENETTA HOLT Report Released Date/Time: Aug 15, 2024 11:30 AM Reporting Lab: [facility] [address] [facility] [address] Performing Lab: [facility] [address] [facility] [address] [facility] LIVER FUNCTION ALANINE AMINOTRANS FERASE [ENZYMATIC ACTIVITY/V OLUME] IN SERUM OR PLASMA 24 U/L 09/21 Specimen Type: SERUM No comment entered. Ordering Provider: RENETTA HOLT Report Released Date/Time: Aug 15, 2024 11:30 AM Reporting Lab: [facility] [address] [facility] [address] Performing Lab: [facility] [address] [facility] [address] [facility] LIVER FUNCTION BILIRUBIN. TOTAL [MASS/VOLU ME] IN SERUM OR PLASMA 1.0 mg/dL 0.2 - 1.2 09/21 Specimen Type: SERUM No comment entered. Ordering Provider: RENETTA HOLT Report Released Date/Time: Aug 15, 2024 11:30 AM Reporting Lab: [facility] [address] [facility] [address] Performing Lab: [facility] [address] [facility] [address] [facility] CBC AND DIFF (AUTO) LEUKOCYTES [#/VOLUME] IN BLOOD BY AUTOMATED COUNT 10.87 10*3/uL 4.50 - 11.00 09/21 Specimen Type: BLOOD No comment entered. Ordering Provider: RENETTA HOLT Report Released Date/Time: Aug 15, 2024 11:30 AM Reporting Lab: [facility] [address] [facility] [address] Performing Lab: [facility] [address] [facility] [address] [facility] CBC AND DIFF (AUTO) ERYTHROCYT ES [#/VOLUME] IN BLOOD BY AUTOMATED COUNT 5.00 10*6/uL 4.23 - 5.66 09/21 Specimen Type: BLOOD No comment entered. Ordering Provider: RENETTA HOLT Report Released Date/Time: Aug 15, 2024 11:30 AM Reporting Lab: [facility] [address] [facility] [address] Performing Lab: [facility] [place] [facility] [address] [facility] [address] [facility] CBC AND DIFF (AUTO) HEMOGLOBIN [MASS/VOLU ME] IN BLOOD 14.3 g/dL 12.8 - 17 09/21 Specimen Type: BLOOD No comment entered. Ordering Provider: RENETTA HOLT Report Released Date/Time: Aug 15, 2024 11:30 AM Reporting Lab: [facility] [address] [facility] [address] Performing Lab: [facility] [address] [facility] [address] [facility] CBC AND DIFF (AUTO) HEMATOCRIT [VOLUME FRACTION] OF BLOOD BY AUTOMATED COUNT 43.4 39.2 - 50.4 09/21 Specimen Type: BLOOD No comment entered. Ordering Provider: RENETTA HOLT Report Released Date/Time: Aug 15, 2024 11:30 AM Reporting Lab: [facility] [facility] [address] [facility] [address] Performing Lab: [facility] [place] [facility] [address] [facility] [address] [facility] CBC AND DIFF (AUTO) MCV [ENTITIC VOLUME] BY AUTOMATED COUNT 86.8 fL 82 - 99 09/21 Specimen Type: BLOOD No comment entered. Ordering Provider: RENETTA HOLT Report Released Date/Time: Aug 15, 2024 11:30 AM Reporting Lab: [facility] [address] [address] Performing Lab: [facility] [place] [facility] [address] [facility] [address] [facility] CBC AND DIFF (AUTO) MCHC [MASS/VOLU ME] BY AUTOMATED COUNT 32.9 g/dL 30.8 - 35.1 09/21 Specimen Type: BLOOD No comment entered. Ordering Provider: RENETTA HOLT Report Released Date/Time: Aug 15, 2024 11:30 AM Reporting Lab: [facility] [address] [address] Performing Lab: [facility] [facility] [address] [facility] [address] [facility] CBC AND DIFF (AUTO) PLATELETS [#/VOLUME] IN BLOOD BY AUTOMATED COUNT 234 10*3/uL 140 - 360 09/21 Specimen Type: BLOOD No comment entered. Ordering Provider: RENETTA HOLT Report Released Date/Time: Aug 15, 2024 11:30 AM Reporting Lab: [facility] [place] [address] [address] Performing Lab: [facility] [address] [facility] [address] [facility] CBC AND DIFF (AUTO) ERYTHROCYT E DISTRIBUTI ON WIDTH [RATIO] BY AUTOMATED COUNT 13.1 12.0 - 16.0 09/21 Specimen Type: BLOOD No comment entered. Ordering Provider: RENETTA HOLT Report Released Date/Time: Aug 15, 2024 11:30 AM Reporting Lab: [facility] [place] [facility] [address] [facility] [address] Performing Lab: [facility] [place] [facility] [address] [facility] [address] [facility] CBC AND DIFF (AUTO) MONOCYTES [#/VOLUME] IN BLOOD BY AUTOMATED COUNT 0.69 10*3/uL 0.30 - 1.10 09/21 Specimen Type: BLOOD No comment entered. Ordering Provider: RENETTA HOLT Report Released Date/Time: Aug 15, 2024 11:30 AM Reporting Lab: [facility] [place] [facility] [address] [facility] [address] Performing Lab: [facility] [place] [facility] [address] [facility] [address] [facility] [place] [facility] CBC AND DIFF (AUTO) MCH [ENTITIC MASS] BY AUTOMATED COUNT 28.6 pg 26.2 - 32.6 09/21 Specimen Type: BLOOD No comment entered. Ordering Provider: RENETTA HOLT Report Released Date/Time: Aug 15, 2024 11:30 AM Reporting Lab: [facility] [place] [facility] [address] [facility] [address] Performing Lab: [facility] [place] [facility] [address] [facility] [address] [facility] [place] [facility] CBC AND DIFF (AUTO) NEUTROPHIL S/100 LEUKOCYTES IN BLOOD BY AUTOMATED COUNT 61.0 43.7 - 75.8 09/21 Specimen Type: BLOOD No comment entered. Ordering Provider: RENETTA HOLT Report Released Date/Time: Aug 15, 2024 11:30 AM Reporting Lab: [facility] [address] [facility] [address] Performing Lab: [facility] [address] [facility] [address] [facility] CBC AND DIFF (AUTO) LYMPHOCYTE S/100 LEUKOCYTES IN BLOOD BY AUTOMATED COUNT 24.4 14.0 - 42.3 09/21 Specimen Type: BLOOD No comment entered. Ordering Provider: RENETTA HOLT Report Released Date/Time: Aug 15, 2024 11:30 AM Reporting Lab: [facility] [address] [facility] [address] Performing Lab: [facility] [address] [facility] [address] [facility] CBC AND DIFF (AUTO) MONOCYTES/ 100 LEUKOCYTES IN BLOOD BY AUTOMATED COUNT 6.3 5.1 - 13.7 09/21 Specimen Type: BLOOD No comment entered. Ordering Provider: RENETTA HOLT Report Released Date/Time: Aug 15, 2024 11:30 AM Reporting Lab: [facility] [address] [facility] [address] Performing Lab: [facility] [address] [facility] [address] [facility] CBC AND DIFF (AUTO) EOSINOPHIL S/100 LEUKOCYTES IN BLOOD BY AUTOMATED COUNT 5.5 0.4 - 6.8 09/21 Specimen Type: BLOOD No comment entered. Ordering Provider: RENETTA HOLT Report Released Date/Time: Aug 15, 2024 11:30 AM Reporting Lab: [facility] [address] [facility] [address] Performing Lab: [facility] [address] [facility] [address] [facility] CBC AND DIFF (AUTO) BASOPHILS/ 100 LEUKOCYTES IN BLOOD BY AUTOMATED COUNT 1.1 0.1 - 2.0 09/21 Specimen Type: BLOOD No comment entered. Ordering Provider: RENETTA HOLT Report Released Date/Time: Aug 15, 2024 11:30 AM Reporting Lab: [facility] [address] [facility] [address] Performing Lab: [facility] [address] [facility] [address] [facility] CBC AND DIFF (AUTO) NEUTROPHIL S [#/VOLUME] IN BLOOD BY AUTOMATED COUNT 6.62 10*3/uL 2.20 - 7.60 09/21 Specimen Type: BLOOD No comment entered. Ordering Provider: RENETTA HOLT Report Released Date/Time: Aug 15, 2024 11:30 AM Reporting Lab: [facility] [place] [address] [address] Performing Lab: [facility] [place] [address] [address] [facility] CBC AND DIFF (AUTO) LYMPHOCYTE S [#/VOLUME] IN BLOOD BY AUTOMATED COUNT 2.65 10*3/uL 1.00 - 3.20 09/21 Specimen Type: BLOOD No comment entered. Ordering Provider: RENETTA HOLT Report Released Date/Time: Aug 15, 2024 11:30 AM Reporting Lab: [facility] [address] [address] Performing Lab: [facility] [address] [place] [address] [facility] CBC AND DIFF (AUTO) EOSINOPHIL S [#/VOLUME] IN BLOOD BY AUTOMATED COUNT 0.60 10*3/uL 0.03 - 0.44 09/21 H Specimen Type: BLOOD No comment entered. Ordering Provider: RENETTA HOLT Report Released Date/Time: Aug 15, 2024 11:30 AM Reporting Lab: [facility] [address] [address] Performing Lab: [facility] [address] [facility] [address] [facility] CBC AND DIFF (AUTO) BASOPHILS [#/VOLUME] IN BLOOD BY AUTOMATED COUNT 0.12 10*3/uL 0.01 - 0.13 09/21 Specimen Type: BLOOD No comment entered. Ordering Provider: RENETTA HOLT Report Released Date/Time: Aug 15, 2024 11:30 AM Reporting Lab: [facility] [address] [facility] [address] Performing Lab: [facility] [place] [facility] [address] [facility] [address] [facility] CBC AND DIFF (AUTO) IMMATURE GRANULOCYT ES/100 LEUKOCYTES IN BLOOD BY AUTOMATED COUNT 1.7 0.0 - 0.7 09/21 H Specimen Type: BLOOD No comment entered. Ordering Provider: RENETTA HOLT Report Released Date/Time: Aug 15, 2024 11:30 AM Reporting Lab: [facility] [place] [facility] [address] [facility] [address] Performing Lab: [facility] [place] [facility] [address] [facility] [address] [facility] CBC AND DIFF (AUTO) IMMATURE GRANULOCYT ES [#/VOLUME] IN BLOOD BY AUTOMATED COUNT 0.19 10*3/uL 0.00 - 0.06 09/21 H Specimen Type: BLOOD No comment entered. Ordering Provider: RENETTA HOLT Report Released Date/Time: Aug 15, 2024 11:30 AM Reporting Lab: [facility] [place] [facility] [address] [facility] [address] Performing Lab: [facility] [place] [facility] [address] [facility] [address] [facility] CBC AND DIFF (AUTO) NUCLEATED ERYTHROCYT ES/100 LEUKOCYTES [RATIO] IN BLOOD BY AUTOMATED COUNT 0.0 0.0 - 0.0 09/21 Specimen Type: BLOOD No comment entered. Ordering Provider: RENETTA HOLT Report Released Date/Time: Aug 15, 2024 11:30 AM Reporting Lab: [facility] [address] [facility] [address] Performing Lab: [facility] [address] [facility] CBC AND DIFF (AUTO) NUCLEATED ERYTHROCYT ES [#/VOLUME] IN BLOOD BY AUTOMATED COUNT 0.00 10*3/uL 0.00 - 0.00 09/21 Specimen Type: BLOOD No comment entered. Ordering Provider: RENETTA HOLT Report Released Date/Time: Aug 15, 2024 11:30 AM Reporting Lab: [facility] [address] [address] Performing Lab: [facility] [address] [address] [facility] HEMOGLOB IN A1C PANEL HEMOGLOBIN A1C/HEMOGL OBIN.TOTAL IN BLOOD BY HPLC 5.4 4.0 - 5.6 09/21 Specimen Type: BLOOD Comment: Values obtained from A1C measurement s can vary. For atypical A1C assays, a reported value of 7.0 could actually be between 6.72 and 7.28 if measured by a reference method. A reported value of 9.0 could actually be between 8.73 and 9.27. Ref: http://www. ngsp.org/[place] Pdata.asp Ordering Provider: RENETTA HOLT Report Released Date/Time: Aug 15, 2024 11:30 AM Reporting Lab: [facility] [address] Performing Lab: [facility] [address] [address] [facility] TSH THYROTROPI N [UNITS/VOL UME] IN SERUM OR PLASMA 1.53 u[IU]/mL 0.35 - 5.00 09/21 Specimen Type: SERUM No comment entered. Ordering Provider: RENETTA HOLT Report Released Date/Time: Aug 15, 2024 11:30 AM Reporting Lab: [facility] [facility] [address] [facility] [address] Performing Lab: [facility] [place] [facility] [address] [facility] [address] [facility] CREATINI NE (eGFR 2020) CREATININE [MASS/VOLU ME] IN SERUM OR PLASMA 0.81 mg/dL 0.50 - 1.40 09/21 Specimen Type: SERUM No comment entered. Ordering Provider: RENETTA HOLT Report Released Date/Time: Aug 15, 2024 11:30 AM Reporting Lab: [facility] [place] [address] [address] Performing Lab: [facility] [place] [address] [address] [facility] CREATINI NE (eGFR 2020) GLOMERULAR FILTRATION RATE/1.73 SQ M.PREDICTE D [VOLUME RATE/AREA] IN SERUM, PLASMA OR BLOOD BY CREATININE -BASED FORMULA (CKD-EPI 2020) >90mL/mi n 60 09/21 Specimen Type: SERUM No comment entered. Ordering Provider: RENETTA HOLT Report Released Date/Time: Aug 15, 2024 11:30 AM Reporting Lab: [facility] [address] [address] Performing Lab: [facility] [address] [address] [facility] MICROALB UMIN CREATINI NE RATIO PANEL MICROALBUM IN/CREATIN INE [MASS RATIO] IN URINE 9.9 mg/g 0 - 29.9 09/21 Specimen Type: URINE No comment entered. Ordering Provider: RENETTA HOLT Report Released Date/Time: Aug 15, 2024 11:30 AM Reporting Lab: [facility] [place] [address] [address] Performing Lab: [facility] [address] [facility] [address] [facility] MICROALB UMIN CREATINI NE RATIO PANEL MICROALBUM IN [MASS/VOLU ME] IN URINE 1.3 mg/dL 09/21 Specimen Type: URINE No comment entered. Ordering Provider: RENETTA HOLT Report Released Date/Time: Aug 15, 2024 11:30 AM Reporting Lab: [facility] [place] [facility] [address] [facility] [address] Performing Lab: [facility] [place] [facility] [address] [facility] [address] [facility] [place] MICROALB UMIN CREATINI NE RATIO PANEL CREATININE [MASS/VOLU ME] IN URINE 131.48 mg/dL 09/21 Specimen Type: URINE No comment entered. Ordering Provider: RENETTA HOLT Report Released Date/Time: Aug 15, 2024 11:30 AM Reporting Lab: [facility] [place] [address] [address] Performing Lab: [facility] [place] [address] [address] [facility] BASIC METABOLI C PANEL (non-fas ting) UREA NITROGEN [MASS/VOLU ME] IN SERUM OR PLASMA 16 mg/dL 7 - 25 09/21 Specimen Type: SERUM No comment entered. Ordering Provider: BELKIS COLÓN Report Released Date/Time: Sep 21, 2024 02:12 PM Reporting Lab: [facility] [address] [address] Performing Lab: [facility] [place] [address] [address] [facility] BASIC METABOLI C PANEL (non-fas ting) GLUCOSE [MASS/VOLU ME] IN SERUM OR PLASMA 95 mg/dL 65 - 100 09/21 Specimen Type: SERUM No comment entered. Ordering Provider: BELKIS COLÓN Report Released Date/Time: Sep 21, 2024 02:12 PM Reporting Lab: [facility] [place] [facility] [address] [facility] [address] Performing Lab: [facility] [place] [facility] [address] [facility] [address] [facility] [place] [facility] BASIC METABOLI C PANEL (non-fas ting) SODIUM [MOLES/VOL UME] IN SERUM OR PLASMA 138 mmol/L 135 - 145 09/21 Specimen Type: SERUM No comment entered. Ordering Provider: BELKIS COLÓN Report Released Date/Time: Sep 21, 2024 02:12 PM Reporting Lab: [facility] [place] [facility] [address] [facility] [address] Performing Lab: [facility] [place] [facility] [address] [facility] [address] [facility] [facility] BASIC METABOLI C PANEL (non-fas ting) POTASSIUM [MOLES/VOL UME] IN SERUM OR PLASMA 4.5 mmol/L 3.5 - 5.0 09/21 Specimen Type: SERUM No comment entered. Ordering Provider: BELKIS COLÓN Report Released Date/Time: Sep 21, 2024 02:12 PM Reporting Lab: [facility] [place] [facility] [address] [facility] [address] Performing Lab: [facility] [place] [address] [address] [facility] [place] [facility] BASIC METABOLI C PANEL (non-fas ting) CHLORIDE [MOLES/VOL UME] IN SERUM OR PLASMA 106 mmol/L 100 - 110 09/21 Specimen Type: SERUM No comment entered. Ordering Provider: BELKIS COLÓN Report Released Date/Time: Sep 21, 2024 02:12 PM Reporting Lab: [facility] [place] [facility] [address] [facility] [address] Performing Lab: [facility] [place] [address] [address] [facility] BASIC METABOLI C PANEL (non-fas ting) CARBON DIOXIDE, TOTAL [MOLES/VOL UME] IN SERUM OR PLASMA 23 meq/L 20 - 30 09/21 Specimen Type: SERUM No comment entered. Ordering Provider: BELKIS COLÓN Report Released Date/Time: Sep 21, 2024 02:12 PM Reporting Lab: [address] [address] Performing Lab: [address] [address] [facility] BASIC METABOLI C PANEL (non-fas ting) CALCIUM [MASS/VOLU ME] IN SERUM OR PLASMA 9.8 mg/dL 8.5 - 10.2 09/21 Specimen Type: SERUM No comment entered. Ordering Provider: BELKIS COLÓN Report Released Date/Time: Sep 21, 2024 02:12 PM Reporting Lab: [address] [address] Performing Lab: [address] [address] [facility] BASIC METABOLI C PANEL (non-fas ting) CREATININE [MASS/VOLU ME] IN SERUM OR PLASMA 0.80 mg/dL 0.50 - 1.40 09/21 Specimen Type: SERUM No comment entered. Ordering Provider: BELKIS COLÓN Report Released Date/Time: Sep 21, 2024 02:12 PM Reporting Lab: [address] [address] Performing Lab: [facility] [address] [address] [facility] BASIC METABOLI C PANEL (non-fas ting) GLOMERULAR FILTRATION RATE/1.73 SQ M.PREDICTE D [VOLUME RATE/AREA] IN SERUM, PLASMA OR BLOOD BY CREATININE -BASED FORMULA (CKD-EPI 2020) >90mL/mi n 60 09/21 Specimen Type: SERUM No comment entered. Ordering Provider: BELKIS COLÓN Report Released Date/Time: Sep 21, 2024 02:12 PM Reporting Lab: [facility] [place] [facility] [address] [facility] [address] Performing Lab: [facility] [place] [facility] [address] [facility] [address] [facility]N [facility] LIPID PANEL, NON FASTING CHOLESTERO L [MASS/VOLU ME] IN SERUM OR PLASMA 110 mg/dL 09/21 Specimen Type: SERUM No comment entered. Ordering Provider: BELKIS COLÓN Report Released Date/Time: Sep 21, 2024 02:12 PM Reporting Lab: [facility] [address] [facility] [address] Performing Lab: [facility] [address] [facility]ITALRBEACON [facility]ITALN [facility] LIPID PANEL, NON FASTING TRIGLYCERI DE [MASS/VOLU ME] IN SERUM OR PLASMA 82 mg/dL 0 - 150 09/21 Specimen Type: SERUM No comment entered. Ordering Provider: BELKIS COLÓN Report Released Date/Time: Sep 21, 2024 02:12 PM Reporting Lab: [facility] [address] Performing Lab: [facility] [address] [facility] LIPID PANEL, NON FASTING CHOLESTERO L IN LDL [MASS/VOLU ME] IN SERUM OR PLASMA BY CALCMARY N 59 mg/dL 0 - 129 09/21 Specimen Type: SERUM No comment entered. Ordering Provider: BELKIS COLÓN Report Released Date/Time: Sep 21, 2024 02:12 PM Reporting Lab: [facility] [place] [facility] [address] [facility] [address] Performing Lab: [facility] [address] [facility] LIPID PANEL, NON FASTING CHOLESTERO L.TOTAL/CH OLESTEROL IN HDL [MASS RATIO] IN SERUM OR PLASMA 3.1 09/21 Specimen Type: SERUM No comment entered. Ordering Provider: BELKIS COLÓN Report Released Date/Time: Sep 21, 2024 02:12 PM Reporting Lab: [facility]ITALRBEAC[facility]PITALN [facility] [address] [facility] [address] Performing Lab: [facility] [address] [facility] [address] [facility] LIPID PANEL, NON FASTING CHOLESTERO L IN HDL [MASS/VOLU ME] IN SERUM OR PLASMA 35 mg/dL 40 - 60 09/21 L Specimen Type: SERUM No comment entered. Ordering Provider: BELKIS COLÓN Report Released Date/Time: Sep 21, 2024 02:12 PM Reporting Lab: [facility] [address] [facility] [address] Performing Lab: [facility] [address] [address] [facility] OCCULT BLOOD FIT X1 SCREEN(I N-HOUSE) HEMOGLOBIN .GASTROINT ESTINAL.LO WER [PRESENCE] IN STOOL BY IMMUNOASSA Y Negative 05/11 Specimen Type: FECES No comment entered. Ordering Provider: HONEY SCHNEIDER Report Released Date/Time: May 10, 2024 03:13 PM Reporting Lab: [facility] [address] [facility] [address] Performing Lab: [facility] [address] [address] [place] LIPID PANEL FASTING CHOLESTERO L [MASS/VOLU ME] IN SERUM OR PLASMA 161 mg/dL 05/10 Specimen Type: SERUM No comment entered. Ordering Provider: HONEY SCHNEIDER Report Released Date/Time: May 10, 2024 02:10 PM Reporting Lab: [facility] [address] [facility] [address] Performing Lab: [facility] [address] [address] [place] LIPID PANEL FASTING TRIGLYCERI DE [MASS/VOLU ME] IN SERUM OR PLASMA 152 mg/dL 0 - 150 05/10 H Specimen Type: SERUM No comment entered. Ordering Provider: HONEY SCHNEIDER Report Released Date/Time: May 10, 2024 02:10 PM Reporting Lab: [facility]N [facility] [address] [facility] [address] Performing Lab: [facility] TRN [facility]USETS [facility] [address] [facility] [address] [place] LIPID PANEL FASTING CHOLESTERO L IN LDL [MASS/VOLU ME] IN SERUM OR PLASMA BY CALCULAKEITHO N 91 mg/dL 0 - 129 05/10 Specimen Type: SERUM No comment entered. Ordering Provider: HONEY SCHNEIDER Report Released Date/Time: May 10, 2024 02:10 PM Reporting Lab: [facility]OSPITALRLAKELAND COMMUNITY HOSPITALTRN [facility] [address] [facility] [address] Performing Lab: [facility]ITALRBEACON [facility]IORAL HOSPITALN [facility] [address] [place] LIPID PANEL FASTING CHOLESTERO L.TOTAL/CH OLESTEROL IN HDL [MASS RATIO] IN SERUM OR PLASMA 4.0 05/10 Specimen Type: SERUM No comment entered. Ordering Provider: HONEY SCHNEIDER Report Released Date/Time: May 10, 2024 02:10 PM Reporting Lab: [facility] [address] [facility] [address] Performing Lab: [facility]ITALRL TRN [facility] HEALTHUSETS [address] [address] [place] LIPID PANEL FASTING CHOLESTERO L IN HDL [MASS/VOLU ME] IN SERUM OR PLASMA 40 mg/dL 40 - 60 05/10 Specimen Type: SERUM No comment entered. Ordering Provider: HONEY SCHNEIDER Report Released Date/Time: May 10, 2024 02:10 PM Reporting Lab: [facility]OSPITALRLAKELAND COMMUNITY HOSPITALTRN [facility]ALTHUSETS [address] [address] Performing Lab: [facility]OSPITALRLAKELAND COMMUNITY HOSPITALTRN [facility] HEALTHUSETS [address] [address] [place] Vital Signs Combined list of inpatient and outpatient Vital Signs from Department of Defense and Veterans Affairs, ranging from 12 months to all on record, depending upon the facility. Vital Sign Value Date Comments Source SYSTOLIC BLOOD PRESSURE 142 09/22/19 14:18:13 [facility] DIASTOLIC BLOOD PRESSURE 94 09/21/ 025 14:18:13 [facility] PULSE OXIMETRY 95 09/21/2024 14:18:13 [facility] WEIGHT 283 09/21/2024 14:18:13 [facility] BMI 42 kg/m2 09/21/2024 14:18:13 [facility] PAIN 0 09/21/2024 14:18:13 [facility] HEIGHT 69 09/21/2024 14:18:13 [facility] TEMPERATURE 96.8 09/21/2024 14:18:13 [facility] PULSE 60 09/21/2024 14:18:13 [facility] RESPIRATION 20 09/21/2024 14:18:13 [facility] [place] SYSTOLIC BLOOD PRESSURE 151 06/09/20 24 13:31:14 [facility] [place] DIASTOLIC BLOOD PRESSURE 80 024 13:31:14 [facility] PULSE OXIMETRY 95 06/09/2024 13:31:14 [facility] WEIGHT 286.6 06/09/2024 13:31:14 [facility] BMI 42 kg/m2 06/09/2024 13:31:14 [facility] PAIN 1 06/09/2024 13:31:14 [facility] HEIGHT 69 06/09/2024 13:31:14 [facility] TEMPERATURE 98.6 06/09/2024 13:31:14 [facility] PULSE 51 06/09/2024 13:31:14 [facility] RESPIRATION 20 06/09/2024 13:31:14 [facility] Encounters Combined list of: 1) Encounters from Department of Veterans Affairs facilities going backup to the last 18 months, not all VA inpatient encounters are included; 2) Encounters from the Department of Defense facilities going backup to 280 months. Location Location Details Encounter Type Encounter Number Reason For Visit Attending Provider ADM Date DC Date Status Disposition Source [facility] Encounter [id number] 09/19 [facility] [place] [facility] [address] [address] (89[facility]) HC PRO PHONE CALL 11-20 MIN [id number] Diagnos is: ICD-10- CM Z59.811 Housing instabi lity, housed, with risk of homeles FERNIE Hagen 09/29 [facility] (89[facility] Out[facility] Encounter [id number] 10/01 [facility] En[facility] [id number] 10/10 [facility] [place] En[facility] [id number] 10/14 [facility] [place] En[facility] [id number] 11/17 [facility] En[facility] [id number] 11/18 [facility] En[facility] [id number] 04/28 [facility] [place] En[facility] [id number] 04/28 [facility] [place] Outpatient Encounter [id number] 05/10 [facility] Outpatient Encounter [id number] 05/10 [facility] [place] [facility] [place] OFFICE O/P EST MOD 30 MIN [id number] Diagnos is: ICD-10- CM I63.9 Cerebra l infarct ion, unspeci MONTY Hodge 05/10 [facility] [place] [facility] Outpatient Encounter [id number] 05/10 [place] [facility] [place] [facility] ELECTROCAR DIOGRAM REPORT [id number] Diagnos is: ICD-10- CM Z13.6 Encount er for screeni ng for cardiov ascular disorde rs Ayan JOSE 05/10 [place] [facility] ELECTROCAR DIOGRAM TRACING [id number] MONTY SCHNEIDER 05/10 [place] [facility] [place] [facility] [place] HC PRO PHONE CALL 5-10 MIN [id number] Diagnos is: ICD-10- CM 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, 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 ASHLEY Singer 05/11 [facility] TTE W/DOPPLER COMPLETE [id number] Diagnos is: ICD-10- CM I10 Essenti al (primar y) hyperte ALLISON Toscano 05/28 [facility] OFF/OP EST NOVEMBER X REQ PHY/QHP [id number] Diagnos is: ICD-10- CM I10 Essenti al (primar y) hyperte nsion ESSIE,PAR UL U 05/28 [facility] En[facility] [id number] 05/30 [facility] En[facility] [id number] 1.06/02 [facility] [place] [facility] [place] OFFICE O/P EST MOD 30 MIN [id number]. [id number] Diagnos is: ICD-10- CM I10 Essenti al (primar y) hyperte nsion JULIUS,Lance POLINARIO 06/09 [place] HC PRO PHONE CALL 11-20 MIN [id number] Diagnos is: ICD-10- CM Z59.82 Transpo rtation insecur ASHLEY Sanchez 06/10 [place] [facility] Outpatient Encounter [id number] 06/11 [facility] [place] [place] Outpatient Encounter [id number] 07/08 [facility] [place] [facility] [place] PH1 ASSMT&MGMT NQHP 5-10 [id number] Diagnos is: ICD-10- CM Z59.89 Other problem s related to housing and economi c circums ASHLEY Arnett 07/27 [place] MTMS BY PHARM ADDL 15 MIN [id number] Diagnos is: ICD-10- CM E66.09 Other obesity due to excess calorie s DERREK FLETCHER 08/11 [place] [facility] Outpatient Encounter [id number] 08/24 [place] [facility] [place] [facility] [place] [facility] Outpatient Encounter [id number] 09/09 [place] [facility] [place] [facility] [place] OFFICE O/P EST MOD 30 MIN [id number] 1BY. [id number] Diagnos is: ICD-10- CM I63.9 Cerebra l infarct ion, unspeci fied KATARZYNAPHUC LY P 09/21 [facility] [place] [facility] [facility] Outpatient Encounter [id number] 09/25 [facility] [place] [facility] MTMS BY PHARM ADDL 15 MIN [id number] Diagnos is: ICD-10- CM E78.00 Pure hyperch olester olemia, unspeci fied DERREK FLETCHER A 10/06 [facility] Social History Combined list of available smoking, tobacco, and other social history from Department of Defense and Veterans Affairs facilities. Social History Type Response Date Comment Sour e Tobacco smoking status NHIS VA-TOBACCO NEVER USED 05/10/20 [place] Plan of Care List of future care activities from Department of Veterans Affairs facilities. Additional future care activities may be listed in the Assessment and Plan section. Date/Time Care Activity Care Activity Detail Facili ty 12/27/2024 AMBULATORY - MEDICINE AM[facility]UL[facility] Advance Directives List of completed, amended, or rescinded Advance Directives on record at Department of Veterans Affairs facilities. An actual copy of the Directive is not included. Date Advance Directive Provider Source 04/28/2024 [facility] DIRECTIVE REINALDO SHAIKH
== END 2024-10-18 13:29 | disposition home or self-care (01) ==
LOC: HO.US 13:28
PROVIDERS: Visit Provider Urology
DX: R33.9 Retention of urine, unspecified (principal); R32 Unspecified urinary incontinence
CPT/HCPCS: 76770

== ENCOUNTER → 2024-10-18 13:30 | Outpatient (BNV) | payer OTHER, SELFPAY | PROVIDERS: Visit Provider Radiology Diagnostic Radiology | DX: N13.39 Other hydronephrosis (principal); R33.9 Retention of urine, unspecified | CPT/HCPCS: 76770 ==

== ENCOUNTER 2024-11-01 12:59 | Outpatient (AMB) | payer OTHER, SELFPAY ==
--- NOTE | 2024-11-01 13:37 | A.OFFVIS_ITS ---
Intake Visit Reasons: Cysto/ US Intake Note: Patient is present for Cystoscopy/US Urology Medication:TAMSULOSIN Antibiotic Allergy:NONE Blood Thinner:ASPIRIN Weaving Machine Operator Required: No Allergies No Known Allergies Allergy (Verified 11/01/24 13:39) HPI Comments Details: 11/01/24--Cystoscopy findings: bulbous urethra WNL, prostatic urethra bilobar enlargement mild Moderate with cellule changes, no suspicious bladder lesions visualized. Incomplete bladder emptying will check urodynamics for furher evaluation. Will trial bethanochol. 09/09/24--Deo is a 64-year-old male, referred due to urinary incontinence. The patient has a history of stroke about a year ago. The patient states his urinary symptoms have been worsening over the last year. Bladder scan PVR is elevated greater than 300 mL. 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 Abnormal electrocardiogram [ECG] [EKG] Alcohol use disorder Severe obesity PILY (obstructive sleep apnea) Social History Alcohol intake: current Alcohol intake frequency: 0-2 drinks per day Alcohol type: beer Patient Tobacco Use Status: Never used Tobacco service: No Review of Systems Const All systems reviewed & are unremarkable except as noted in HPI and below Reports no additional complaints Eyes Reports no additional complaints ENT Reports no additional complaints Card Reports no additional complaints Resp Reports no additional complaints GI Reports no additional complaints Reports as per HPI Musc Reports no additional complaints Skin/Breast Reports system reviewed and no additional complaints, except as documented Neuro Reports no additional complaints Psych Reports no additional complaints Endo Reports no additional complaints Hamzah/Lymph Reports no additional complaints Aller/Immun Reports no additional complaints Office Procedures Bladder/Catheter Procedure Details: Patient straight catheterized after cystoscopy procedure per Dr. Sher. 16fr coude straight catheter inserted, drained 500cc. Patient tolerated well. [id number] Bladder Catheter Procedure code (CPT) selection complete Cystoscopy Consent Discussed risk and benefit or proposed procedure with the patient. Information consent for procedure given to the patient. Discussed technical aspects, risks, benefits and alternatives in full. Addressed all of the patient's questions and concerns regarding the procedure. The patient demonstrated knowledge and understanding. They wish to proceed with this procedure. Preparation The patient was prepped in the usual manner. A clin nurse was present and in the room. Genitalia was prepped with betadine solution in a sterile manner. Lidocaine Jelly 2% was placed into the urethra and 16Fr flexible Olympus cystoscope was inserted into the meatus after adequate lubrication. Time out per protocol performed. The flexible cystoscope is passed transurethrally: The bladder was inspected in its entirety with utilization retroflexion displaying: Tumor(s): no suspicious bladder lesions visualized Trabeculation: Mild Moderate with cellule changes Mucosal Erthema: Orifices: normal shape and position Urethra: normal Cystoscopy findings: bulbous urethra WNL, prostatic urethra bilobar enlargement mild Moderate with cellule changes, no suspicious bladder lesions visualized [id number]-Vlzhcyjhiv DISPOSABLE SCOPE URO-G FLEXIBLE SCOPE Procedure code (CPT) selection complete Office Meds lidocaine HCl 2 % mucosal jelly in applicator Performing Provider: Saud Lazo MD Performing Location: [facility] [place] [facility] Administered by: Darron Aquino LPN on 11/01/24 13:57 Dose Route Admin Location Dispensed Lot Number Expiration Date ND Aeronautical Engineering Officer 10 mL intra-urethral 20 mL ciprofloxacin HCl 500 mg tablet Performing Provider: Saud Lazo MD Performing Location: [facility] [place] [facility] Administered by: Darron Aquino LPN on 11/01/24 13:57 Dose Route Admin Location Dispensed Lot Number Expiration Date ND Aeronautical Engineering Officer 500 mg PO 1 tab phenazopyridine 200 mg tablet Performing Provider: Saud Lazo MD Performing Location: [facility] [place] [facility] Administered by: Darron Aquino LPN on 11/01/24 13:57 Dose Route Admin Location Dispensed Lot Number Expiration Date ND Aeronautical Engineering Officer 200 mg PO 1 tab Results AMB Urinalysis, Automated UA Leukoctes 0 Nicole/uL Last Edit by Renée Goyal on 11/01/24 16:40 UA Nitrite Negative Last Edit by Renée Goyal on 11/01/24 16:40 UA Urobilinogen 0.2 mg/dL Last Edit by Renée Goyal on 11/01/24 16:40 UA Protein 0 mg/dL Last Edit by Renée Goyal on 11/01/24 16:40 UA pH 6.0 Last Edit by Renée Goyal on 11/01/24 16:40 UA Blood 0 Bud/uL Last Edit by Renée Goyal on 11/01/24 16:40 UA Specific [place]mar 1.020 Last Edit by Renée Goyal on 11/01/24 16:40 UA Ketone Negative Last Edit by Renée Goyal on 11/01/24 16:40 UA Bilirubin 0 mg/dL Last Edit by Renée Goyal on 11/01/24 16:40 UA Glucose 0 mg/dL Last Edit by Renée Goyal on 11/01/24 16:40 Results Reviewed Results Reviewed: Laboratory Last Values Urine pH (Auto) 6.0 11/01/24 16:33 Specific Colmar (Auto) 1.020 11/01/24 16:33 Urine Protein (Auto) 0 mg/dL 11/01/24 16:33 Glucose (UA)(Auto) 0 mg/dL 11/01/24 16:33 Urine Ketones (Auto) Negative 11/01/24 16:33 Urine Blood (Auto) 0 Bud/uL 11/01/24 16:33 Urine Nitrite (Auto) Negative 11/01/24 16:33 Urine Bilirubin (Auto) 0 mg/dL 11/01/24 16:33 Urine Urobilinogen (Auto) 0.2 mg/dL 11/01/24 16:33 Leukocyte Esterase (Auto) 0 Nicole/uL 11/01/24 16:33 Date of Service: 10/18/24 US kidneys and bladder Comparison: None Findings: Right kidney 11.2 cm length. Mild right hydronephrosis noted. No significant focal abnormality. 0.9 cm cyst noted. Left kidney 10.9 cm length. No significant focal abnormality. No left hydronephrosis. Normal bilateral renal echogenicity. The urinary bladder is unremarkable. Prevoid volume 547 mL. Post void volume 508 mL. Bilateral ureteral jets visualized. Impression: Significant postvoid residual of 508 mL Mild right hydronephrosis Ultrasound prostate Comparison: None Findings: Heterogeneous normal-sized prostate. Prostate measures 3.8 x 3.3 x 3.3 cm. Prostate volume: 21 mL. Impression: Heterogeneous prostate Assessment & Plan Assessment & Plan (1) BPH loc w urin obs/LUTS: Code(s): N40.1 - Benign prostatic hyperplasia with lower urinary tract symptoms Category: Medical (2) Screening PSA (prostate specific antigen): Code(s): Z12.5 - Encounter for screening for malignant neoplasm of prostate Category: Medical Plan Incomplete bladder emptying will check urodynamics for furher evaluation. Will trial bethanochol Orders: Orders AMB Urinalysis Automated 11/01/24 Z13.9 - Encounter for screening, unspecified AMB Cystoscopy 11/01/24 R32 - Unspecified urinary incontinence, R33.9 - Retention of urine, unspecified PSA,Total (Free>4and<10) 11/01/24 N40.1 - Benign prostatic hyperplasia with lower urinary tract symptoms, Z12.5 - Encounter for screening for malignant neoplasm of prostate AMB Bladder/Catheter Procedure 11/01/24 N40.1 - Benign prostatic hyperplasia with lower urinary tract symptoms, Z12.5 - Encounter for screening for malignant neoplasm of prostate, R33.9 - Retention of urine, unspecified Medications: New bethanechol chloride . 50 mg PO BID 60 tabs 5RF bethanechol chloride 50 mg PO BID 60 tabs 5RF Changed From tamsulosin 0.4 mg PO BEDTIME 90 caps 1RF To tamsulosin . 0.4 mg PO BEDTIME 90 caps 1RF Refilled tamsulosin 0.4 mg PO BEDTIME 90 caps 1RF Patient Instructions: The patient had an opportunity to ask questions regarding treatment plan. The patient expressed understanding and agreement with the above treatment plan. The patient is aware they should contact our office by phone for worsening of their current condition or the appearance of new symptoms. Compliance is encouraged with any medications and followup testing that is ordered. It is a privilege to be allowed the opportunity to participate in the urologic care of your patient. If you have any questions or concerns regarding treatment for the above conditions please do not hesitate to contact me. The office telephone contact is [phone]. This note is constructed in part using voice recognition software. While every effort has been made to ensure accuracy survey worker errors may have been included. Yours sincerely, Saud Lazo MD Coding Level of Care Code Est Pt Level 4 (17359) Diagnoses BPH loc w urin obs/LUTS N40.1 Screening PSA (prostate specific antigen) Z12.5 CPT Codes Bladder/Catheter Procedure - CPT: 58304-Ywvpez Bladder Catheter ([id number]) Cystoscopy - CPT: 53739-Dhzjprbhkd ([id number])
--- OUTSIDE RECORDS SUMMARY | 2024-11-01 14:53 | XMS_ITS | Encounter Summary ---
Author Name [facility] Address [address] [place] [address] Care Team Providers Care Activity Leader Name Role Phone HOLT RENETTAAD Primary Care [...] PART B Jan 19, 2024 PART B [id number] MARIPOSA PAIZ JR PATIENT Selected Encounter This section includes the information on record at NH for the Encounter. Date/Time Encounter Type Encounter Description Reason Provider Source Oct 06, 2024 01:00 PM MTMS BY PHARM ADDL 15 MIN CLINICAL PHARMACY ICD-10-CM E78.00 Pure hypercholesterole kendra, unspecified JAYLEN FLETCHER [facility] Encounter Template Text not used by [place] Assessments - Encounter Diagnoses This section includes the primary and secondary diagnoses documented for the Encounter. Date/Time Primary/Secondary Diagnosis Diagnosis Name Provider Source Oct 06, 2024 01:25 PM PRIMARY Pure hypercholesterolemi a, unspecified JAYLEN FLETCHER [place] Oct 06, 2024 01:25 PM SECONDARY Essential (primary) hypertension JAYLEN FLETCHER [place] Oct 06, 2024 01:25 PM SECONDARY Other obesity due to excess calories JAYLEN FLETCHER [place] Plan of Treatment: Future Appointments (+ 6 months) and Future Tests (+/- 45 days) The Plan of Treatment section includes future care activities for the patient from all [facility]. This section includes future appointments and future orders which are active, pending or scheduled. Future Appointments This section includes appointments that were scheduled to occur 6 months from the date of the Encounter, up to a maximum of 20 appointments. The data comes from all [facility]. Appointment Date/Time Appointment Type Appointme nt Facility Name Dec 27, 2024 12:30 PM AMBULATORY - MEDICINE [facility] Mar 22, 2025 01:30 PM AMBULATORY - MEDICINE [facility] Active, Pending, and Scheduled Orders This section includes a listing of several types of active, pending, and scheduled orders, including clinic medications orders, diagnostic test orders, procedure orders and consult orders; where the start date of the order is 45 days before the date of the Encounter or 45 days after the date of theEncounter. The data comes from all [facility]. Test Date/Time Test Type Test Details Facility Name Oct 06, 2024 01:16 PM Consult Order OPTOMETRY/ [facility] OUTPT Cons Hand Launderer[facility] Choice [facility] Lab Results: +/- 30 days of the encounter This section includes the Chemistry and Hematology Lab Results on record with NH for the patient. Radiology Reports and Pathology Reports are provided separately, in subsequent sections. Lab Results This section contains the Chemistry/Hematology Results that were resulted 30 days before or 30 daysafter the date of the Encounter. Date/Time Source Result Type Result - Unit Interpretation Reference Range Specimen Type Comment Sep 21, 2024 02:19 PM [facility] LIVER FUNCTION SERUM Specimen Type: SERUM No comment entered. Ordering Provider: IVETT HOLT Report Released Date/Time: Aug 15, 2024 11:30 AM Reporting Lab: [facility] [address] [address] Performing Lab: [address] [address] PROTEIN,TOTAL 7.5 g/dL 6.0-8.3 ALBUMIN 4.4 g/dL 3.5-5.0 ALKALINE PHOSPHATASE 48 U/L 40-150 AST 20 U/L 5-34 ALT 24 U/L BILIRUBIN, TOTAL 1.0 mg/dL 0.2-1.2 Sep 21, 2024 02:19 PM [facility] CBC AND DIFF (AUTO) BLOOD Specimen Type: BLOO D No comment entered. Ordering Provider: IVETT HOLT Report Released Date/Time: Aug 15, 2024 11:30 AM Reporting Lab: [facility] [address] [address] Performing Lab: [facility] [address] [address] WBC 10.87 10*3/uL 4.50-11.00 RBC 5.00 10*6/uL [...] 0.0-0.7 IMMATURE GRAN, ABS 0.19 10*3/uL H 0.00-0.0 6 NRBC % 0.0 0.0-0.0 NRBC, ABS 0.00 10*3/uL 0.00-0.00 Sep 21, 2024 02:19 PM [facility] HEMOGLOBIN A1C PANEL BLOOD Specimen Type: BLO OD Comment: Values obtained from A1C measurements can vary. For atypical A1C assays, a reported value of 7.0 could actually be between 6.72 and 7.28 if measured by a reference method. A reported value of 9.0 could actually be between 8.73 and 9.27. Ref: http://www.ngsp.org/CAPdata.asp Ordering Provider: IVETT HOLT Report Released Date/Time: Aug 15, 2024 11:30 AM Reporting [facility]: [facility] [place] [facility] [address] [address] Performing Lab: [facility] [place] [facility] [address] [address] HEMOGLOBIN A1C 5.4 4.0-5.6 Sep 21, 2024 02:19 PM [facility] [place] [facility] TSH SERUM Specimen Type: SERUM No comment entered. Ordering Provider: IVETT HOLT Report Released Date/Time: Aug 15, 2024 11:30 AM Reporting Lab: [facility] [place] [facility] [address] [address] Performing Lab: [facility] [place] [facility] [address] [address] TSH 1.53 u[IU]/mL 0.35-5.00 Sep 21, 2024 02:19 PM [facility] CREATININE (eGFR 2020) SERUM Specimen Type: S SILVIA No comment entered. Ordering Provider: IVETT HOLT Report Released Date/Time: Aug 15, 2024 11:30 AM Reporting Lab: [facility] [place] [facility] [address] [address] Performing Lab: [facility] [place] [address] [address] CREATININE, Serum 0.81 mg/dL 0.50-1.40 eGFR(CKD-EPI 2020) >90 mL/min >60 Sep 21, 2024 02:19 PM [facility] [place] [facility] MICROALBUMIN CREATININE RATIO PANEL URINE Spe cimen Type: URINE No comment entered. Ordering Provider: IVETT HOLT Report Released Date/Time: Aug 15, 2024 11:30 AM Reporting Lab: [facility] [address] [address] Performing Lab: [address] [address] MICROALBUMIN/CREATININE RATIO 9.9 mg/g 0 -29.9 MICROALBUMIN,QUANTITATIVE 1.3 mg/dL RR U NAVAIL CREATININE URINE 131.48 mg/dL Sep 21, 2024 02:19 PM [facility] BASIC METABOLIC PANEL (non-fasting) SERUM Spe cimen Type: SERUM No comment entered. Ordering Provider: PARK COLÓN Report Released Date/Time: Sep 21, 2024 02:12 PM Reporting Lab: [facility] [address] [address] Performing Lab: [address] [address] UREA NITROGEN 16 mg/dL 7-25 GLUCOSE 95 mg/dL 65-100 SODIUM 138 mmol/L 135-145 POTASSIUM 4.5 mmol/L 3.5-5.0 CHLORIDE 106 mmol/L 100-110 CO2 23 meq/L 20-30 CALCIUM 9.8 mg/dL 8.5-10.2 CREATININE, Serum 0.80 mg/dL 0.50-1.40 eGFR(CKD-EPI 2020) >90 mL/min >60 Sep 21, 2024 02:19 PM [facility] LIPID PANEL, NON FASTING SERUM Specimen Type: SERUM No comment entered. Ordering Provider: PARK COLÓN Report Released Date/Time: Sep 21, 2024 02:12 PM Reporting Lab: [address] [address] Performing Lab: [address] [address] CHOLESTEROL 110 mg/dL TRIGLYCERIDE 82 mg/dL 0-150 LDL calculated 59 mg/dL 0-129 CHOL/HDL 3.1 HDL CHOLESTEROL 35 mg/dL L 40-60 Social History: Smoking Status (Most current) and Tobacco Use (All prior to encounter date) This section includes the most current, and the historical, smoking and tobacco- related health factors from the NH facility where the Encounter took place. Current Smoking Status This section includes the most current smoking, or tobacco-related health factor, from the NH facility where the Encounter took place. Date/Time Current Smoking Status Comment Facil ity May 10, 2024 01:30 PM VA-TOBACCO NEVER USED [place] Advance Directives: All historical and current Section Date Range: From patient's date of to the date document was created. This section includes ALL of a patient's completed or amended [place] Advance and Rescinded Directives. The entries below indicate that a directive exists for the patient, but an actual copy is not included with this document. The data comes from all [place] facilities. Date Advance Directives Provider Source Apr 28, 2024 ADVANCE DIRECTIVE HAWAREINALDO IE Encounter Notes: All associated encounter notes This [...] very much !! /jones/ MARLON FLETCHER CLINICAL FOLDER MACHINE Signed: 10/06/2024 13:53 Receipt Acknowledged By: 10/17/2024 [...] procedure w/ urology Urologist Dr. Jimenes non- [facility] - urology. 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 Transportation is difficult for Callao - he uses a bus. Pt also has HTN. 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 He livesb by himself in [place]. --------- [facility]: Code Description I63.9 CVA - Cerebrovascular accident ([facility] [id number]) I10. Hypertension ([facility] [id number]) E78.00 Hypercholesterolemia ([facility] [id number]) Z12.11 Screening for malignant neoplasm of colon done ([facility] [id number]) R69. athridities (ICD-10-CM R69.) R94.31 Ambulatory ECG abnormal ([facility] [id number]) ALLERGIES/ADRs: Patient has answered NKA Hypertension - [...] LIPID PANEL ---- SERUM Oct 21 Oct Reference 2023 2023 14:55 14:45 Units Ranges [...] eligible for weight loss medication management at [facility]: [ ] Verifiable participation in a comprehensive [...] inadequate response, contraindication or intolerance to all [place] National Formulary agents for chronic weight management [...] contraindication or intolerance to at least two [place] National Formulary agents for chronic weight management [...] summer rides bike for 1 hour ; [place] Social History: ETOH: 1-3 drinks 2-3x week [...] which account for some weight lost by [place]ao. He is highly motivated. Recommend to place [...] monitor and assess /jones/ MARLON FLETCHER CLINICAL FOLDER MACHINE Signed: 10/06/2024 13:50 Receipt Acknowledged By: 10/09/2024 07:50 /jones/ IVETT HOLT NP NURSE PRACTITIONER 10/06/2024 ADDENDUM STATUS: COMPLETED SPOKE w/ Lawanda the clinical training coordinator. Pt missed first session now the next in person session is going to start in March. Left pt vm requesting if he wishes to post pone our appt until after he attends 4 of the MOVE sessions. thank you /jones/ MARLON FLETCHER CLINICAL FOLDER MACHINE Signed: 10/06/2024 13:52 MARLON FLETCHER [place] Oct 06, 2024 01:08 PM PHARMACY OUTPATIEN [...] procedure w/ urology Urologist Dr. Jimenes non- [facility] - urology. 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 Transportation is difficult for - he uses a bus. Pt also has HTN. 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 He livesb by himself in [place]. --------- [facility]: Code Description I63.9 CVA - Cerebrovascular accident ([facility] [id number]) I10. Hypertension ([facility] [id number]) E78.00 Hypercholesterolemia ([facility] [id number]) Z12.11 Screening for malignant neoplasm of colon done ([facility] [id number]) R69. athridities (ICD-10-CM R69.) R94.31 Ambulatory ECG abnormal ([facility] [id number]) ALLERGIES/ADRs: Patient has answered NKA Hypertension - [...] LABS: ---- GENERAL CHEMISTRY ---- SERUM Oct May 10 Reference 2023 2023 14:47 14:45 [...] TRIG: ---- HEMOGLOBIN A1C ---- BLOOD Oct 21 Reference 2023 14:45 Units Ranges HGB-A1c 5.1 % 4 - 5.6 Comments: f Patient must meet the following criteria to be eligible for weight loss medication management at [facility]: [ ] Verifiable participation in a comprehensive [...] inadequate response, contraindication or intolerance to all [place] National Formulary agents for chronic weight management [...] contraindication or intolerance to at least two [place] National Formulary agents for chronic weight management [...] summer rides bike for 1 hour ; [place] Social History: ETOH: 1-3 drinks 2-3x week [...] which account for some weight lost by [place]. He is highly motivated. Recommend to place [...] monitor and assess /jones/ MARLON FLETCHER CLINICAL FOLDER MACHINE Signed: 10/06/2024 13:50 Receipt Acknowledged By: 10/09/2024 07:50 /jones/ IVETT HOLT NP NURSE PRACTITIONER 10/06/2024 ADDENDUM STATUS: COMPLETED SPOKE w/ Lawanda the clinical training coordinator. Pt missed first session now the next in person session is going to start in March. Left pt vm requesting if he wishes to post pone our appt until after he attends 4 of the MOVE sessions. thank you /rosalio FLETCHER CLINICAL FOLDER MACHINE Signed: 10/06/2024 13:52 10/06/2024 ADDENDUM STATUS: COMPLETED [...] you very much !! /rosalio FLETCHER CLINICAL FOLDER MACHINE Signed: 10/06/2024 13:53 Receipt Acknowledged By: 10/17/2024 16:09 /rosalio Colón MD INTERNAL MEDICINE and RHEUMATOLOGY 10/17/2024 ADDENDUM STATUS: COMPLETED lisinopril 40 mg daily ordered. /rosalio Colón MD INTERNAL MEDICINE and RHEUMATOLOGY Signed: 10/17/2024 16:12 MARLON FLETCHERFIELD
--- OUTSIDE RECORDS SUMMARY | 2024-11-01 14:53 | XMS_ITS | Encounter Summary ---
Author Name [facility] Address [address] [place] [address] Care Team Providers Care Corporate Communications Associate Name Role Phone HOLT KECIA Primary Care [...] PART B Jan 19, 2024 PART B [id number] MARIPOSA PAIZ JR PATIENT Selected Encounter This section includes the information on record at [place] for the Encounter. Date/Time Encounter Type Encounter Description Reason Provider Source Sep 21, 2024 02:00 PM OFFICE O/P EST MOD 30 MIN PRIMARY CARE/MEDICINE ICD-10-CM I63.9 Cerebral infarction, unspecified MAY,PARK P IHE Encounter Template Text not used by [facility] Assessments - Encounter Diagnoses This section includes [...] care activities for the [facility] This section includes future appointments and future orders which are active, pending or scheduled. Future Appointments This section includes appointments that were scheduled to occur 6 months from the date of the Encounter, up to a maximum of 20 appointments. The data comes from all [place] treatment facilities. Appointment Date/Time Appointment Type Appointme nt Facility Name Oct 06, 2024 01:00 PM [facility] Dec 27, 2024 12:30 PM [facility] - [facility]INE [facility] Mar 22, 2025 01:30 PM AMBULATORY - MEDICINE [facility] Active, Pending, and Scheduled Orders This section includes a listing of several types of active, pending, and scheduled orders, including clinic medications orders, diagnostic test orders, procedure orders and consult orders; where the start date of the order is 45 days before the date of the Encounter or 45 days after the date of theEncounter. The data comes from all [facility] facilities. Test Date/Time Test Type Test Details Facility Name Oct 06, 2024 01:16 PM Consult Order OPTOMETRY/ [facility] OUTPT Cons Block Piler's Choice [facility] Lab Results: +/- 30 days of the encounter This section includes the Chemistry and Hematology Lab Results on record with [facility] for the patient. Radiology Reports and Pathology Reports are provided separately, in subsequent sections. Lab Results This section contains the Chemistry/Hematology Results that were resulted 30 days before or 30 daysafter the date of the Encounter. Date/Time Source Result Type Result - Unit Interpretation Reference Range Specimen Type Comment Sep 21, 2024 02:19 PM [facility] LIVER FUNCTION SERUM Specimen Type: SERUM No comment entered. Ordering Provider: IVETT HOLT Report Released Date/Time: Aug 15, 2024 11:30 AM Reporting Lab: [facility] [address] [facility] [address] Performing Lab: [address] [address] PROTEIN,TOTAL 7.5 g/dL 6.0-8.3 ALBUMIN 4.4 g/dL 3.5-5.0 ALKALINE PHOSPHATASE 48 U/L 40-150 AST 20 U/L 5-34 ALT 24 U/L BILIRUBIN, TOTAL 1.0 mg/dL 0.2-1.2 Sep 21, 2024 02:[address] [facility] CBC AND DIFF (AUTO) BLOOD Specimen Type: BLOO D No comment entered. Ordering Provider: IVETT HOLT Report Released Date/Time: Aug 15, 2024 11:30 AM Reporting Lab: [facility] [address] [facility] [address] Performing Lab: [facility] [address] [facility] [address] WBC 10.87 10*3/uL 4.50-11.00 RBC 5.00 10*6/uL [...] 10*3/uL 0.00-0.00 Sep 21, 2024 02:19 PM [facility] HEMOGLOBIN A1C PANEL BLOOD Specimen Type: BLO [...] Aug 15, 2024 11:30 AM Reporting Lab: [address] [address] Performing Lab: [address] [address] HEMOGLOBIN A1C 5.4 4.0-5.6 Sep 21, 2024 02:19 PM [facility] TSH SERUM Specimen Type: SERUM No comment entered. Ordering Provider: IVETT HOLT Report Released Date/Time: Aug 15, 2024 11:30 AM Reporting Lab: [facility] [address] [facility] [address] Performing Lab: [address] [address] TSH 1.53 u[IU]/mL 0.35-5.00 Sep 21, 2024 02:19 PM [facility] CREATININE (eGFR 2020) SERUM Specimen Type: S SILVIA No comment entered. Ordering Provider: IVETT HOLT Report Released Date/Time: Aug 15, 2024 11:30 AM Reporting Lab: [facility] [address] [facility] [address] Performing Lab: [address] [address] CREATININE, Serum 0.81 mg/dL 0.50-1.40 eGFR(CKD-EPI 2020) >90 mL/min >60 Sep 21, 2024 02:[address] [facility] MICROALBUMIN CREATININE RATIO PANEL URINE Spe cimen Type: URINE No comment entered. Ordering Provider: IVETT HOLT Report Released Date/Time: Aug 15, 2024 11:30 AM Reporting [facility] [address] [facility] [address] Performing Lab: [facility] [address] [facility] [address] MICROALBUMIN/CREATININE RATIO 9.9 mg/g 0 -29.9 MICROALBUMIN,QUANTITATIVE 1.3 mg/dL RR U NAVAIL CREATININE URINE 131.48 mg/dL Sep 21, 2024 02:19 PM [facility] BASIC METABOLIC PANEL (non-fasting) SERUM Spe cimen Type: SERUM No comment entered. Ordering Provider: PARK COLÓN Report Released Date/Time: Sep 21, 2024 02:12 PM Reporting [facility] [address] [facility] [address] Performing Lab: [facility] [address] [facility] [address] UREA NITROGEN 16 mg/dL 7-25 GLUCOSE 95 mg/dL 65-100 SODIUM 138 mmol/L 135-145 POTASSIUM 4.5 mmol/L 3.5-5.0 CHLORIDE 106 mmol/L 100-110 CO2 23 meq/L 20-30 CALCIUM 9.8 mg/dL 8.5-10.2 CREATININE, Serum 0.80 mg/dL 0.50-1.40 eGFR(CKD-EPI 2020) >90 mL/min >60 Sep 21, 2024 02:19 PM [facility] LIPID PANEL, NON FASTING SERUM Specimen Type: SERUM No comment entered. Ordering Provider: PARK COLÓN Report Released Date/Time: Sep 21, 2024 02:12 PM Reporting Lab: [facility] [address] [facility] [address] Performing Lab: [facility] [address] [facility] [address] CHOLESTEROL 110 mg/dL TRIGLYCERIDE 82 mg/dL 0-150 LDL calculated 59 mg/dL 0-129 CHOL/HDL 3.1 HDL CHOLESTEROL 35 mg/dL L 40-60 Immunizations: All administered on the encounter date This section contains immunizations associated to the Encounter. Immunization Series Date Issued Administered By Site Reaction Lot Number CVX Code Drug Senior Interactive Producer Comment(s) Source PNEUMOCOCCAL CONJUGATE PCV20, POLYSACCHARID E [id number] CONJUGATE, ADJUVANT, PF Sep 21, 2024 JUANITAANNETTE LEFT DELTO ID [id number] [employer] ADMINISTERE D AT [facility] RSV, RECOMBINANT, PROTEIN SUBUNIT RSVPREF3, ADJUVANT RECONSTITUTED , 0.5 ML, PF 1 Sep 21, 2024 JUANITAANNETTE RIGHT DELTO ID [id number] [employer] NE [facility]MINISTERE [facility] AT [facility] TDAP Sep 21, 2024 JUANITAANNETTE LEFT DELTO ID [id number] GLAXOSMITHK[employer] NE ADMINISTERE D AT [facility] Social History: Smoking Status (Most current) and Tobacco Use (All prior to encounter date) This section includes the most current, and the historical, smoking and tobacco- related health factors from the [place] facility where the Encounter took place. Current Smoking Status This section includes the most current smoking, or tobacco-related health factor, from the [place] facility where the Encounter took place. Date/Time Current Smoking Status Comment Elvira ricey May 10, 2024 01:30 PM VA-TOBACCO NEVER USED [facility] Advance Directives: All historical and current Section Date Range: From patient's date of to the date document was created. This section includes ALL of a patient's completed or amended [place] Advance and Rescinded Directives. The entries below indicate that a directive exists for the patient, but an actual copy is not included with this document. The data comes from all [place] facilities. Date Advance Directives Provider Source Apr 28, 2024 ADVANCE DIRECTIVE REINALDO SHAIKH [facility] Encounter Notes: All associated encounter [...] (Prevnar 20) Administered: PNEUMOCOCCAL CONJUGATE PCV20, POLYSACCHARIDE [id number] CONJUGATE, ADJUVANT, PF Date Administered: Sep 21, 2024 14:00 Senior Interactive Producer: Jin-Magic Lot: [id number] Exp Date: Nov 17, 2025 NDC: [id number] Admin Route/Site: INTRAMUSCULAR/LEFT DELTOID Dosage: 0.5mL Vaccine Information Statement(s): PNEUMOCOCCAL CONJUGATE ([id number]) VIS November 29, 2022 ([place]) Order By: Policy Administered By: Andreia Treviño [...] TDAP Date Administered: Sep 21, 2024 14:00 Senior Interactive Producer: Data[employer] Lot: [id number] Exp Date: Jul 30, 2026 NDC: [id number] Admin Route/Site: INTRAMUSCULAR/LEFT DELTOID Dosage: 0.5mL Vaccine Information Statement(s): TDAP (TETANUS, DIPHTHERIA, PERTUSSIS) VACCINE VIS Feb 23, 2021 ([place]) Order By: Policy Administered By: Andreai Treviño The TETANUS/DIPHTHERIA/PERTUSSIS (TDAP) Vaccine Information Statement [...] Sep 21, 2024 14:00 Series: Series 1 Senior Interactive Producer: Data[employer] Lot: [id number] Exp Date: May 14, 2025 NDC: 730572462647 Admin Route/Site: INTRAMUSCULAR/RIGHT DELTOID Dosage: .5mL Vaccine Information Statement(s): RSV (RESPIRATORY SYNCYTIAL VIRUS) VACCINE VIS May 06, 2024 ([place]) Order By: Park oClón Administered By: Andreia Treviño Vaccine Information Sheet (VIS) was given to the patient/caregiver, education regarding adverse reactions was discussed, as well as barriers to learning, if any, were acknowledged. 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 CVA - Cerebrovascular accident CVA SEP 13: Seen ER, [place] SEP 13; Cause?? - Prob ETOH 2. [...] Spec RBC/HPF 05/10/2024 14:47 URINE 3-5 SERUM May 10 Reference 2023 14:45 Units Ranges --------- ACID [...] electronic health record. Suicide Screen: C-SSRS Screening Sanders-Suicide Severity Rating Scale (C-SSRS Screener) 1. Over [...] of active [facility] and dispensed from another [place] or [facility] facility (remote) as well as inpatient orders [...]
--- OUTSIDE RECORDS SUMMARY | 2024-11-01 14:54 | XMS_ITS | Continuity of Care Document ---
Author Name [facility] Organization [facility] Care Team Providers Care Board Of [employer] Secretary Name Role Phone [facility] Unavailable Unavailable Problems Combined list of problems [...] Comment: Ventric Rate 78 (no A FIB) [place] athridities Active Condition May 10, 2024 Entered By: HONEY SCHNEIDER Comment: LBP and Bilat Hip Pain [place] CVA - Cerebrovascular accident Active Condition May 10, 2024 Entered By: HONEY SCHNEIDER Comment: CVA SEP 13: Seen ER, [place] SEP 13;May 10, 2024 Entered By: HONEY SCHNEIDER Comment: Cause?? - Prob ETOH [place] Hypercholesterolemia Active Condition S [facility] Hypertension Active Condition May 10, 2024 Entered By: HONEY SCHNEIDER Comment: Request ECHO; Request CXR; Request US's of Carotids and Aorta in MAY 13 [place] Screening for malignant neoplasm of colon done Active Condition May 10, 2024 Entered By: HONEY SCHNEIDER Comment: Never Had One; Give FIT Card in MAY 13 [place] Diagnosis: ICD-10-CM E78.00 Pure hypercholesterolemia, unspecified Active Diagnosis [place] Diagnosis: ICD-10-CM I63.9 Cerebral infarction, unspecified Active Diagnosis [place] Diagnosis: ICD-10-CM E66.09 Other obesity due to excess calories Active Diagnosis [facility] Diagnosis: ICD-10-CM Z59.89 Other problems related to housing and economic circumstances Active Diagnosis [facility] Diagnosis: ICD-10-CM Z59.82 Transportation insecurity Active Diagnosis [place] Diagnosis: ICD-10-CM I10 Essential (primary) hypertension Active Diagnosis [facility] Diagnosis: ICD-10-CM Z71.9 Counseling, unspecified Active Diagnosis [place] Diagnosis: ICD-10-CM Z13.6 Encounter for screening for cardiovascular disorders Active Diagnosis [facility] Diagnosis: ICD-10-CM Z59.811 Housing instability, housed, with risk of homelessness Active Diagnosis [facility] (631GE) Medications Combined list of outpatient medications [...] PREVENT STROKE/H EART ATTACK ORAL ACTIVE 06/10/2025 [id number] 5 MOSHE MADRID O 2023 120 [place] ATORVASTATI N CA 40MG TAB TAKE ONE-HALF TABLET BY MOUTH ONCE DAILY FOR HIGH CHOLESTE ROL ORAL ACTIVE 08/16/2025 [id number] 5 RA KECIA HOLT 2024 45 [place] LISINOPRIL 20MG TAB TAKE ONE TABLET BY MOUTH ONCE DAILY TO CONTROL BLOOD PRESSURE ORAL DISCONT INUED (EDIT) 05/11/2025 [id number] 5 MARYBETH SCHNEIDER 2023 60 [place] LISINOPRIL 40MG TAB TAKE ONE TABLET BY MOUTH ONCE DAILY TO CONTROL BLOOD PRESSURE ORAL ACTIVE 10/18/2025 [id number] 5 NOVEMBERLUDMILA P 2024 90 [place] METFORMIN HCL 500MG 24HR TAB,SA TAKE ONE TABLET BY MOUTH ONCE DAILY FOR 7 DAYS, THEN TAKE TWO TABLETS ONCE DAILY FOR 83 DAYS FOR WEIGHT LOSS ORAL 09/07/2024 [id number] 4 MOSHE MADRID O 2023 173 [place] TAMSULOSIN HCL 0.4MG CAP TAKE ONE CAPSULE BY MOUTH AT BEDTIME ORAL ACTIVE 09/11/2025 [id number] 5 CLAU RAMSAY 2024 90 [facility] [place] [facility] Immunizations Combined list of available immunizations from the Department of Defense and Veterans Affairs facilities. Immunization Series Date Given Administered By Site Reaction Lot Number CVX Code Drug Clubhouse Manager Status Comments Source PNEUMOCOCCAL CONJUGATE PCV20, POLYSACCHARID E [id number] CONJUGATE, ADJUVANT, PF 2024 JUANITAANNETTE LEFT DELTO ID [id number] 216 complet ed [facility] IELD RSV, RECOMBINANT, PROTEIN SUBUNIT RSVPREF3, ADJUVANT RECONSTITUTED , 0.5 ML, PF 1 2024 ANNETTE GRANT RIGHT DELTO ID [id number] 303 complet ed [facility] IELD TDAP 2024 JUANITAANNETTE LEFT DELTO ID [id number] 115 complet ed [facility] IELD COVID-19 (MODERNA), MRNA, LNP-S, PF, 50 MCG/0.5 ML (AGES 12+ YEARS) 2023 JUANITAANNETTE LEFT DELTO ID [id number] 312 complet ed Booster for Series, [facility] IELD INFLUENZA, HIGH-DOSE, TRIVALENT, PF 2023 DONNACORRINE SHARMA F LEFT DELTO ID [id number] 135 complet ed [facility] IELD Results Combined list of recent chemistry, [...] Aug 15, 2024 11:30 AM Reporting Lab: [facility] Finding Something [facility] [address] [facility] [address] Performing Lab: [facility] Finding Something [address] [address] [facility] LIVER FUNCTION ALBUMIN [MASS/VOLU ME] IN SERUM OR PLASMA 4.4 g/dL 3.5 - 5.0 09/21 Specimen Type: SERUM No comment entered. Ordering Provider: RENETTA HOLT Report Released Date/Time: Aug 15, 2024 11:30 AM Reporting Lab: [facility] [place] [facility] [address] [facility] [address] Performing Lab: [facility] [place] [facility] [address] [facility] [address] [facility] [place] [facility] LIVER FUNCTION ALKALINE PHOSPHATAS E [ENZYMATIC ACTIVITY/V OLUME] IN SERUM OR PLASMA 48 U/L 40 - 150 09/21 Specimen Type: SERUM No comment entered. Ordering Provider: RENETTA HOLT Report Released Date/Time: Aug 15, 2024 11:30 AM Reporting Lab: [facility] [place] [facility] [address] [facility] [address] Performing Lab: [facility] [place] [facility] [address] [facility] [address] [facility] [place] [facility] LIVER FUNCTION ASPARTATE AMINOTRANS FERASE [ENZYMATIC ACTIVITY/V OLUME] IN SERUM OR PLASMA 20 U/L 5 - 34 09/21 Specimen Type: SERUM No comment entered. Ordering Provider: RENETTA HOLT Report Released Date/Time: Aug 15, 2024 11:30 AM Reporting Lab: [facility] [place] [facility] [address] [facility] [address] Performing Lab: [facility] [place] [facility] [address] [facility] [address] [facility] [place] [facility] LIVER FUNCTION ALANINE AMINOTRANS FERASE [ENZYMATIC ACTIVITY/V OLUME] IN SERUM OR PLASMA 24 U/L 09/21 Specimen Type: SERUM No comment entered. Ordering Provider: RENETTA HOLT Report Released Date/Time: Aug 15, 2024 11:30 AM Reporting Lab: [facility] [place] [facility] [address] [facility] [address] Performing Lab: [facility] [place] [facility] [address] [facility] [address] [facility] [place] [facility] LIVER FUNCTION BILIRUBIN. TOTAL [MASS/VOLU ME] IN SERUM OR PLASMA 1.0 mg/dL 0.2 - 1.2 09/21 Specimen Type: SERUM No comment entered. Ordering Provider: RENETTA HOLT Report Released Date/Time: Aug 15, 2024 11:30 AM Reporting Lab: [facility] [place] [facility] [address] [facility] [address] Performing Lab: [facility] [place] [facility] [address] [facility] [address] [facility] [place] [facility] CBC AND DIFF (AUTO) LEUKOCYTES [#/VOLUME] IN BLOOD BY AUTOMATED COUNT 10.87 10*3/uL 4.50 - 11.00 09/21 Specimen Type: BLOOD No comment entered. Ordering Provider: RENETTA HOLT Report Released Date/Time: Aug 15, 2024 11:30 AM Reporting Lab: [facility] [place] [facility] [address] [facility] [address] Performing Lab: [facility] [place] [facility] [address] [facility] [address] [facility] [place] [facility] CBC AND DIFF (AUTO) ERYTHROCYT ES [#/VOLUME] IN BLOOD BY AUTOMATED COUNT 5.00 10*6/uL 4.23 - 5.66 09/21 Specimen Type: BLOOD No comment entered. Ordering Provider: RENETTA HOLT Report Released Date/Time: Aug 15, 2024 11:30 AM Reporting Lab: [facility] [place] [address] [address] Performing Lab: [facility] [place] [facility] [address] [facility] [address] [facility] [place] [facility] CBC AND DIFF (AUTO) HEMOGLOBIN [MASS/VOLU ME] IN BLOOD 14.3 g/dL 12.8 - 17 09/21 Specimen Type: BLOOD No comment entered. Ordering Provider: RENETTA HOLT Report Released Date/Time: Aug 15, 2024 11:30 AM Reporting Lab: [facility] [place] [facility] [address] [place] [address] Performing Lab: [facility] [place] [facility] [address] [facility] [address] [facility] [place] [facility] CBC AND DIFF (AUTO) HEMATOCRIT [VOLUME FRACTION] OF BLOOD BY AUTOMATED COUNT 43.4 39.2 - 50.4 09/21 Specimen Type: BLOOD No comment entered. Ordering Provider: RENETTA HOLT Report Released Date/Time: Aug 15, 2024 11:30 AM Reporting Lab: [facility] [place] [facility] [address] [facility] [address] Performing Lab: [facility] [place] [facility] [address] [facility] [address] [facility] [place] [facility] CBC AND DIFF (AUTO) MCV [ENTITIC VOLUME] BY AUTOMATED COUNT 86.8 fL 82 - 99 09/21 Specimen Type: BLOOD No comment entered. Ordering Provider: RENETTA HOLT Report Released Date/Time: Aug 15, 2024 11:30 AM Reporting Lab: [facility] [place] [facility] [address] [facility] [address] Performing Lab: [facility] [place] [facility] [address] [facility] [address] [facility] [place] [facility] CBC AND DIFF (AUTO) MCHC [MASS/VOLU ME] BY AUTOMATED COUNT 32.9 g/dL 30.8 - 35.1 09/21 Specimen Type: BLOOD No comment entered. Ordering Provider: RENETTA HOLT Report Released Date/Time: Aug 15, 2024 11:30 AM Reporting Lab: [facility] [place] [facility] [address] [facility] [address] Performing Lab: [facility] [place] [facility] [address] [facility] [address] [facility] [place] [facility] CBC AND DIFF (AUTO) PLATELETS [#/VOLUME] IN BLOOD BY AUTOMATED COUNT 234 10*3/uL 140 - 360 09/21 Specimen Type: BLOOD No comment entered. Ordering Provider: RENETTA HOLT Report Released Date/Time: Aug 15, 2024 11:30 AM Reporting Lab: [facility] [place] [facility] [address] [facility] [address] Performing Lab: [facility] [place] [facility] [address] [facility] [address] [facility] [place] [facility] CBC AND DIFF (AUTO) ERYTHROCYT E DISTRIBUTI ON WIDTH [RATIO] BY AUTOMATED COUNT 13.1 12.0 - 16.0 09/21 Specimen Type: BLOOD No comment entered. Ordering Provider: RENETTA HOLT Report Released Date/Time: Aug 15, 2024 11:30 AM Reporting Lab: [facility] [place] [facility] [address] [facility] [address] Performing Lab: [facility] [place] [facility] [address] [facility] [address] [facility] [place] [facility] CBC AND DIFF (AUTO) MONOCYTES [#/VOLUME] IN BLOOD BY AUTOMATED COUNT 0.69 10*3/uL 0.30 - 1.10 09/21 Specimen Type: BLOOD No comment entered. Ordering Provider: RENETTA HOLT Report Released Date/Time: Aug 15, 2024 11:30 AM Reporting Lab: [facility] [place] [facility] [address] [facility] [address] Performing Lab: [facility] [place] [facility] [address] [facility] [address] [facility] [place] [facility] CBC AND DIFF (AUTO) MCH [ENTITIC MASS] BY AUTOMATED COUNT 28.6 pg 26.2 - 32.6 09/21 Specimen Type: BLOOD No comment entered. Ordering Provider: RENETTA HOLT Report Released Date/Time: Aug 15, 2024 11:30 AM Reporting Lab: [facility] [place] [facility] [address] [facility] [address] Performing Lab: [facility] [place] [facility] [address] [facility] [address] [facility] [place] [facility] CBC AND DIFF (AUTO) NEUTROPHIL S/100 LEUKOCYTES IN BLOOD BY AUTOMATED COUNT 61.0 43.7 - 75.8 09/21 Specimen Type: BLOOD No comment entered. Ordering Provider: RENETTA HOLT Report Released Date/Time: Aug 15, 2024 11:30 AM Reporting Lab: [facility] [place] [facility] [address] [facility] [address] Performing Lab: [facility] [place] [facility] [address] [facility] [address] [facility] [place] [facility] CBC AND DIFF (AUTO) LYMPHOCYTE S/100 LEUKOCYTES IN BLOOD BY AUTOMATED COUNT 24.4 14.0 - 42.3 09/21 Specimen Type: BLOOD No comment entered. Ordering Provider: RENETTA HOLT Report Released Date/Time: Aug 15, 2024 11:30 AM Reporting Lab: [facility] [place] [facility] [address] [facility] [address] Performing Lab: [facility] [place] [facility] [address] [facility] [address] [facility] [place] [facility] CBC AND DIFF (AUTO) MONOCYTES/ 100 LEUKOCYTES IN BLOOD BY AUTOMATED COUNT 6.3 5.1 - 13.7 09/21 Specimen Type: BLOOD No comment entered. Ordering Provider: RENETTA HOLT Report Released Date/Time: Aug 15, 2024 11:30 AM Reporting Lab: [facility] [place] [facility] [address] [facility] [address] Performing Lab: [facility] [place] [facility] [address] [facility] [address] [facility] [place] [facility] CBC AND DIFF (AUTO) EOSINOPHIL S/100 LEUKOCYTES IN BLOOD BY AUTOMATED COUNT 5.5 0.4 - 6.8 09/21 Specimen Type: BLOOD No comment entered. Ordering Provider: RENETTA HOLT Report Released Date/Time: Aug 15, 2024 11:30 AM Reporting Lab: [facility] [place] [facility] [address] [facility] [address] Performing Lab: [facility] [place] [facility] [address] [facility] [address] [facility] [place] [facility] CBC AND DIFF (AUTO) BASOPHILS/ 100 LEUKOCYTES IN BLOOD BY AUTOMATED COUNT 1.1 0.1 - 2.0 09/21 Specimen Type: BLOOD No comment entered. Ordering Provider: RENETTA HOLT Report Released Date/Time: Aug 15, 2024 11:30 AM Reporting Lab: [facility] [place] [facility] [address] [facility] [address] Performing Lab: [facility] [place] [facility] [address] [facility] [address] [facility] [place] [facility] CBC AND DIFF (AUTO) NEUTROPHIL S [#/VOLUME] IN BLOOD BY AUTOMATED COUNT 6.62 10*3/uL 2.20 - 7.60 09/21 Specimen Type: BLOOD No comment entered. Ordering Provider: RENETTA HOLT Report Released Date/Time: Aug 15, 2024 11:30 AM Reporting Lab: [facility] [place] [facility] [address] [facility] [address] Performing Lab: [facility] [place] [facility] [address] [facility] [address] [facility] [place] [facility] CBC AND DIFF (AUTO) LYMPHOCYTE S [#/VOLUME] IN BLOOD BY AUTOMATED COUNT 2.65 10*3/uL 1.00 - 3.20 09/21 Specimen Type: BLOOD No comment entered. Ordering Provider: RENETTA HOLT Report Released Date/Time: Aug 15, 2024 11:30 AM Reporting Lab: [facility] [place] [facility] [address] [facility] [address] Performing Lab: [facility] [place] [facility] [address] [facility] [address] [facility] [place] [facility] CBC AND DIFF (AUTO) EOSINOPHIL S [#/VOLUME] IN BLOOD BY AUTOMATED COUNT 0.60 10*3/uL 0.03 - 0.44 09/21 H Specimen Type: BLOOD No comment entered. Ordering Provider: RENETTA HOLT Report Released Date/Time: Aug 15, 2024 11:30 AM Reporting Lab: [facility] [place] [facility] [address] [facility] [address] Performing Lab: [facility] [place] [facility] [address] [facility] [address] [facility] [place] [facility] CBC AND DIFF (AUTO) BASOPHILS [#/VOLUME] IN BLOOD BY AUTOMATED COUNT 0.12 10*3/uL 0.01 - 0.13 09/21 Specimen Type: BLOOD No comment entered. Ordering Provider: RENETTA HOLT Report Released Date/Time: Aug 15, 2024 11:30 AM Reporting Lab: [facility] [place] [facility] [address] [facility] [address] Performing Lab: [facility] [place] [facility] [address] [facility] [address] [facility] [place] [facility] CBC AND DIFF (AUTO) IMMATURE GRANULOCYT ES/100 LEUKOCYTES IN BLOOD BY AUTOMATED COUNT 1.7 0.0 - 0.7 09/21 H Specimen Type: BLOOD No comment entered. Ordering Provider: RENETTA HOLT Report Released Date/Time: Aug 15, 2024 11:30 AM Reporting Lab: [facility] [place] [facility] [address] [facility] [address] Performing Lab: [facility] [place] [facility] [address] [facility] [address] [facility] [place] [facility] CBC AND DIFF (AUTO) IMMATURE GRANULOCYT ES [#/VOLUME] IN BLOOD BY AUTOMATED COUNT 0.19 10*3/uL 0.00 - 0.06 09/21 H Specimen Type: BLOOD No comment entered. Ordering Provider: RENETTA HOLT Report Released Date/Time: Aug 15, 2024 11:30 AM Reporting Lab: [facility] [place] [facility] [address] [facility] [address] Performing Lab: [facility] [place] [facility] [address] [facility] [address] [facility] [place] [facility] CBC AND DIFF (AUTO) NUCLEATED ERYTHROCYT ES/100 LEUKOCYTES [RATIO] IN BLOOD BY AUTOMATED COUNT 0.0 0.0 - 0.0 09/21 Specimen Type: BLOOD No comment entered. Ordering Provider: RENETTA HOLT Report Released Date/Time: Aug 15, 2024 11:30 AM Reporting Lab: [facility] [place] [facility] [address] [facility] [address] Performing Lab: [facility] [address] [address] [facility] [place] [facility] CBC AND DIFF (AUTO) NUCLEATED ERYTHROCYT ES [#/VOLUME] IN BLOOD BY AUTOMATED COUNT 0.00 10*3/uL 0.00 - 0.00 09/21 Specimen Type: BLOOD No comment entered. Ordering Provider: RENETTA HOLT Report Released Date/Time: Aug 15, 2024 11:30 AM Reporting Lab: [facility]US[facility] [address] Performing Lab: [facility] [address] [address] [facility] HEMOGLOB IN A1C PANEL HEMOGLOBIN A1C/HEMOGL [...] Aug 15, 2024 11:30 AM Reporting Lab: [facility] [address] [address] Performing Lab: [facility] [address] [address] [facility] [place] [facility] TSH THYROTROPI N [UNITS/VOL UME] IN SERUM OR PLASMA 1.53 u[IU]/mL 0.35 - 5.00 09/21 Specimen Type: SERUM No comment entered. Ordering Provider: RENETTA HOLT Report Released Date/Time: Aug 15, 2024 11:30 AM Reporting Lab: [facility] [place] [facility] [address] [facility] [address] Performing Lab: [facility] [place] [facility] [address] [facility] [address] [facility] [place] [facility] CREATINI NE (eGFR 2020) CREATININE [MASS/VOLU ME] IN SERUM OR PLASMA 0.81 mg/dL 0.50 - 1.40 09/21 Specimen Type: SERUM No comment entered. Ordering Provider: RENETTA HOLT Report Released Date/Time: Aug 15, 2024 11:30 AM Reporting Lab: [facility] [place] [address] [address] Performing Lab: [facility] [place] [address] [address] [facility] [place] [facility] CREATINI NE (eGFR 2020) GLOMERULAR FILTRATION RATE/1.73 SQ M.PREDICTE D [VOLUME RATE/AREA] IN SERUM, PLASMA OR BLOOD BY CREATININE -BASED FORMULA (CKD-EPI 2020) >90mL/mi n 60 09/21 Specimen Type: SERUM No comment entered. Ordering Provider: RENETTA HOLT Report Released Date/Time: Aug 15, 2024 11:30 AM Reporting Lab: [facility] [place] [address] [address] Performing Lab: [facility] [place] [address] [address] [facility] [place] [facility] MICROALB UMIN CREATINI NE RATIO PANEL MICROALBUM IN/CREATIN INE [MASS RATIO] IN URINE 9.9 mg/g 0 - 29.9 09/21 Specimen Type: URINE No comment entered. Ordering Provider: RENETTA HOLT Report Released Date/Time: Aug 15, 2024 11:30 AM Reporting Lab: [facility] [place] [facility] [address] [facility] [address] Performing Lab: [facility] [place] [facility] [address] [facility] [address] [facility] [place] [facility] MICROALB UMIN CREATINI NE RATIO PANEL MICROALBUM IN [MASS/VOLU ME] IN URINE 1.3 mg/dL 09/21 Specimen Type: URINE No comment entered. Ordering Provider: RENETTA HOLT Report Released Date/Time: Aug 15, 2024 11:30 AM Reporting Lab: [facility] [place] [facility] [address] [facility] [address] Performing Lab: [facility] [place] [facility] [address] [facility] [address] [facility] [place] [facility] MICROALB UMIN CREATINI NE RATIO PANEL CREATININE [MASS/VOLU ME] IN URINE 131.48 mg/dL 09/21 Specimen Type: URINE No comment entered. Ordering Provider: RENETTA HOLT Report Released Date/Time: Aug 15, 2024 11:30 AM Reporting Lab: [facility] [place] [facility] [address] [facility] [address] Performing Lab: [facility] [place] [facility] [address] [facility] [address] [facility] [place] [facility] BASIC METABOLI C PANEL (non-fas ting) UREA NITROGEN [MASS/VOLU ME] IN SERUM OR PLASMA 16 mg/dL 7 - 25 09/21 Specimen Type: SERUM No comment entered. Ordering Provider: BELKIS COLÓN Report Released Date/Time: Sep 21, 2024 02:12 PM Reporting Lab: [facility] [place] [facility] [address] [facility] [address] Performing Lab: [facility] [place] [facility] [address] [facility] [address] [facility] [place] [facility] BASIC METABOLI C PANEL (non-fas ting) GLUCOSE [MASS/VOLU ME] IN SERUM OR PLASMA 95 mg/dL 65 - 100 09/21 Specimen Type: SERUM No comment entered. Ordering Provider: BELKIS COLÓN Report Released Date/Time: Sep 21, 2024 02:12 PM Reporting Lab: [facility] [place] [facility] [address] [facility] [address] Performing Lab: [facility] [address] [address] [facility] BASIC METABOLI C PANEL (non-fas ting) SODIUM [MOLES/VOL UME] IN SERUM OR PLASMA 138 mmol/L 135 - 145 09/21 Specimen Type: SERUM No comment entered. Ordering Provider: BELKIS COLÓN Report Released Date/Time: Sep 21, 2024 02:12 PM Reporting Lab: [facility] [address] [address] Performing Lab: [facility] [address] [address] [facility] BASIC METABOLI C PANEL (non-fas ting) POTASSIUM [MOLES/VOL UME] IN SERUM OR PLASMA 4.5 mmol/L 3.5 - 5.0 09/21 Specimen Type: SERUM No comment entered. Ordering Provider: BELKIS COLÓN Report Released Date/Time: Sep 21, 2024 02:12 PM Reporting Lab: [facility] [address] [address] Performing Lab: [facility] [address] [address] [facility] BASIC METABOLI C PANEL (non-fas ting) CHLORIDE [MOLES/VOL UME] IN SERUM OR PLASMA 106 mmol/L 100 - 110 09/21 Specimen Type: SERUM No comment entered. Ordering Provider: BELKIS COLÓN Report Released Date/Time: Sep 21, 2024 02:12 PM Reporting Lab: [facility] [address] [address] Performing Lab: OR CNTRL [address] [address] [facility] BASIC METABOLI C PANEL (non-fas ting) CARBON DIOXIDE, TOTAL [MOLES/VOL UME] IN SERUM OR PLASMA 23 meq/L 20 - 30 09/21 Specimen Type: SERUM No comment entered. Ordering Provider: BELKIS COLÓN Report Released Date/Time: Sep 21, 2024 02:12 PM Reporting Lab: [address] [address] Performing Lab: [address] [address] [facility] BASIC METABOLI C PANEL (non-fas ting) CALCIUM [MASS/VOLU ME] IN SERUM OR PLASMA 9.8 mg/dL 8.5 - 10.2 09/21 Specimen Type: SERUM No comment entered. Ordering Provider: BELKIS COLÓN Report Released Date/Time: Sep 21, 2024 02:12 PM Reporting Lab: [address] [address] Performing Lab: [address] [address] [facility] BASIC METABOLI C PANEL (non-fas ting) CREATININE [MASS/VOLU ME] IN SERUM OR PLASMA 0.80 mg/dL 0.50 - 1.40 09/21 Specimen Type: SERUM No comment entered. Ordering Provider: BELKIS COLÓN Report Released Date/Time: Sep 21, 2024 02:12 PM Reporting Lab: [address] [address] Performing Lab: [address] [address] [facility] BASIC METABOLI C PANEL (non-fas ting) GLOMERULAR FILTRATION RATE/1.73 SQ M.PREDICTE D [VOLUME RATE/AREA] IN SERUM, PLASMA OR BLOOD BY CREATININE -BASED FORMULA (CKD-EPI 2020) >90mL/mi n 60 09/21 Specimen Type: SERUM No comment entered. Ordering Provider: BELKIS COLÓN Report Released Date/Time: Sep 21, 2024 02:12 PM Reporting Lab: [facility] [facility] [address] [facility] [address] Performing Lab: [facility] [place] [facility] [address] [address] [facility] LIPID PANEL, NON FASTING CHOLESTERO L [MASS/VOLU ME] IN SERUM OR PLASMA 110 mg/dL 09/21 Specimen Type: SERUM No comment entered. Ordering Provider: BELKIS COLÓN Report Released Date/Time: Sep 21, 2024 02:12 PM Reporting Lab: [facility] [place] [facility] [address] [address] Performing Lab: [facility] [place] [address] [address] [facility] LIPID PANEL, NON FASTING TRIGLYCERI DE [MASS/VOLU ME] IN SERUM OR PLASMA 82 mg/dL 0 - 150 09/21 Specimen Type: SERUM No comment entered. Ordering Provider: BELKIS COLÓN Report Released Date/Time: Sep 21, 2024 02:12 PM Reporting Lab: [facility] [place] [facility] [address] [facility] [address] Performing Lab: [facility] [place] [facility] [address] [address] [facility] LIPID PANEL, NON FASTING CHOLESTERO L IN LDL [MASS/VOLU ME] IN SERUM OR PLASMA BY CALCULATIO N 59 mg/dL 0 - 129 09/21 Specimen Type: SERUM No comment entered. Ordering Provider: BELKIS COLÓN Report Released Date/Time: Sep 21, 2024 02:12 PM Reporting Lab: [facility] [place] [facility] [address] [facility] [address] Performing Lab: [facility] [place] [address] [address] [facility] LIPID PANEL, NON FASTING CHOLESTERO L.TOTAL/CH OLESTEROL IN HDL [MASS RATIO] IN SERUM OR PLASMA 3.1 09/21 Specimen Type: SERUM No comment entered. Ordering Provider: BELKIS COLÓN Report Released Date/Time: Sep 21, 2024 02:12 PM Reporting Lab: [address] [address] Performing Lab: [address] [address] [facility] LIPID PANEL, NON FASTING CHOLESTERO L IN HDL [MASS/VOLU ME] IN SERUM OR PLASMA 35 mg/dL 40 - 60 09/21 L Specimen Type: SERUM No comment entered. Ordering Provider: BELKIS COLÓN Report Released Date/Time: Sep 21, 2024 02:12 PM Reporting Lab: [address] [address] Performing Lab: [address] [address] [facility] OCCULT BLOOD FIT X1 SCREEN(I N-HOUSE) HEMOGLOBIN .GASTROINT ESTINAL.LO WER [PRESENCE] IN STOOL BY IMMUNOASSA Y Negative 05/11 Specimen Type: FECES No comment entered. Ordering Provider: HONEY SCHNEIDER Report Released Date/Time: May 10, 2024 03:13 PM Reporting Lab: [address] [address] Performing Lab: [address] [address] [facility] LIPID PANEL FASTING CHOLESTERO L [MASS/VOLU ME] IN SERUM OR PLASMA 161 mg/dL 05/10 Specimen Type: SERUM No comment entered. Ordering Provider: HONEY SCHNEIDER Report Released Date/Time: May 10, 2024 02:10 PM Reporting Lab: [address] [address] Performing Lab: [address] [place] [address] [place] LIPID PANEL FASTING TRIGLYCERI DE [MASS/VOLU ME] IN SERUM OR PLASMA 152 mg/dL 0 - 150 05/10 H Specimen Type: SERUM No comment entered. Ordering Provider: HONEY SCHNEIDER Report Released Date/Time: May 10, 2024 02:10 PM Reporting Lab: [facility] [address] [address] Performing Lab: [facility] [address] [address] [place] LIPID PANEL FASTING CHOLESTERO L IN LDL [MASS/VOLU ME] IN SERUM OR PLASMA BY CALCULATIO N 91 mg/dL 0 - 129 05/10 Specimen Type: SERUM No comment entered. Ordering Provider: HONEY SCHNEIDER Report Released Date/Time: May 10, 2024 02:10 PM Reporting Lab: [facility] [address] [address] Performing Lab: [facility] [address] [address] [place] LIPID PANEL FASTING CHOLESTERO L.TOTAL/CH OLESTEROL IN HDL [MASS RATIO] IN SERUM OR PLASMA 4.0 05/10 Specimen Type: SERUM No comment entered. Ordering Provider: HONEY SCHNEIDER Report Released Date/Time: May 10, 2024 02:10 PM Reporting Lab: [facility] [address] [address] Performing Lab: [facility] [address] [place] LIPID PANEL FASTING CHOLESTERO L IN HDL [MASS/VOLU ME] IN SERUM OR PLASMA 40 mg/dL 40 - 60 05/10 Specimen Type: SERUM No comment entered. Ordering Provider: HONEY SCHNEIDER Report Released Date/Time: May 10, 2024 02:10 PM Reporting Lab: [facility] [address] [address] Performing Lab: [facility] [address] [address] [place] Vital Signs Combined list of inpatient and outpatient Vital Signs from Department of Defense and Veterans Affairs, ranging from 12 months to all on record, depending upon the facility. Vital Sign Value Date Comments Source SYSTOLIC BLOOD PRESSURE 142 09/22/19 25 14:18:13 [facility] DIASTOLIC BLOOD PRESSURE 94 025 14:18:13 [facility] En[facility] [id number] 09/19 [facility] ([facility] HC PRO PHONE CALL 11-20 MIN [id number] Diagnos is: ICD-10- CM Z59.811 Housing instabi lity, housed, with risk of homeles FERNIE Hagen 09/29 [facility] En[facility] [id number] 10/01 [facility] En[facility] [id number] 10/10 [facility] En[facility] [id number] 10/14 [facility] En[facility] [id number] 11/17 [facility] En[facility] [id number] 11/18 [facility] En[facility] [id number] 04/28 [facility] En[facility] [id number] 04/28 [facility] En[facility] [id number] 05/10 [facility] Outpatient Encounter [id number] 1.05/10 [facility] [place] OFFICE O/P EST MOD 30 MIN [id number] Diagnos is: ICD-10- CM I63.9 Cerebra l infarct ion, unspeci MONTY Hodge 05/10 [facility] Outpatient Encounter [id number] 05/10 [facility] ELECTROCAR DIOGRAM REPORT [id number] Diagnos is: ICD-10- CM Z13.6 Encount er for screeni ng for cardiov ascular disorde rs Ayan JOSE 05/10 [place] [facility] ELECTROCAR DIOGRAM TRACING [id number] MONTY SCHNEIDER 05/10 [facility] [place] [facility] [place] HC PRO PHONE CALL 5-10 MIN [id number] Diagnos is: ICD-10- CM 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, 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 ASHELY Singer 05/11 [facility] W/DOPPLER COMPLETE [id number] Diagnos is: ICD-10- CM I10 Essenti al (primar y) hyperte ALLISON Toscano 05/28 [place] [facility] EST MAY X REQ PHY/QHP [id number] Diagnos is: ICD-10- CM I10 Essenti al (primar y) hyperte nsdonn FOUNTAIN,DEEP DUDLEY U 05/28 [place] [facility] Out[facility] Encounter [id number] 1.05/30 [facility] [place] [facility] Outpatient Encounter [id number] 1.06/02 [facility] [place] [place] [place] OFFICE O/P EST MOD 30 MIN [id number] 1BY. 40 Diagnos is: ICD-10- CM I10 Essenti al (primar y) hyperte nsion JULIUS,A POLISATHISHIO 06/09 [facility] [place] HC PRO PHONE CALL 11-20 MIN [id number] Diagnos is: ICD-10- CM Z59.82 Transpo rtation insecur ASHLEY Sanchez 06/10 [facility] [place] [facility] Outpatient Encounter [id number] 06/11 [facility] [place] [facility] Outpatient Encounter [id number] 07/08 [facility] [place] [place] [place] PH1 ASSMT&MGMT NQHP 5-10 [id number] Diagnos is: ICD-10- CM Z59.89 Other problem s related to housing and economi c ASHLEY Suarez 07/27 [facility] [place] [place] MTMS BY PHARM ADDL 15 MIN [id number] Diagnos is: ICD-10- CM E66.09 Other obesity due to excess calorie s DERREK FLETCHER 08/11 [place] [facility] Outpatient Encounter [id number] 08/24 [facility] Outpatient Encounter [id number] 09/09 [facility] [place] [place] [place] OFFICE O/P EST MOD 30 MIN [id number] 1BY. 94 Diagnos is: ICD-10- CM I63.9 Cerebra l infarct ion, unspeci fied MAY,PHUC LY P 09/21 [facility] [place] [facility] [place] Outpatient Encounter [id number] 1.09/25 [facility] [place] [facility] [place] MTMS BY PHARM ADDL 15 MIN [id number] Diagnos is: ICD-10- CM E78.00 Pure hyperch olester olemia, unspeci fied FLETCHER,DERREK AVERY Lance 10/06 [facility] Social History Combined list of available smoking, tobacco, and other social history from Department of Defense and Veterans Affairs facilities. Social History Type Response Date Comment Sourc e Tobacco smoking status MIIS VA-TOBACCO NEVER USED 05/10/20 24 [place] Plan of Care List of future care activities from Department of Veterans Affairs facilities. Additional future care activities may be listed in the Assessment and Plan section. Date/Time Care Activity Care Activity Detail Facili ty 12/27/2024 AMBULATORY - MEDICINE AMBULATORY - MEDICI [place] [facility] [place] [facility] Advance Directives List of completed, amended, or rescinded Advance Directives on record at Department of Veterans Affairs facilities. An actual copy of the Directive is not included. Date Advance Directive Provider Source 04/28/2024 ADVANCE DIRECTIVE REINALOD SHAIKH [facility]
== END 2024-11-01 14:26 | disposition home or self-care (01) ==
PROVIDERS: Visit Provider Urology
DX: R32 Unspecified urinary incontinence (principal); R33.9 Retention of urine, unspecified; Z13.9 Encounter for screening, unspecified
CPT/HCPCS: 52000

== ENCOUNTER → 2024-11-01 12:59 | Outpatient (BNVA) | payer OTHER, SELFPAY | PROVIDERS: Visit Provider Urology | DX: Z12.5 Encounter for screening for malignant neoplasm of prostate (principal); N40.1 Benign prostatic hyperplasia with lower urinary tract symptoms | CPT/HCPCS: 52000; 81003 ==

== ENCOUNTER 2024-12-31 08:55 | Outpatient (AMB) | payer OTHER, SELFPAY ==
--- NOTE | 2024-12-31 10:29 | A.OFFVIS_ITS ---
Intake Visit Reasons: UroD Allergies No Known Allergies Allergy (Verified 11/01/24 13:39) HPI Comments Details: 11/01/24--Cystoscopy findings: bulbous urethra WNL, prostatic urethra bilobar enlargement mild Moderate with cellule changes, no suspicious bladder lesions visualized. Incomplete bladder emptying will check urodynamics for furher evaluation. Will trial bethanochol. 09/09/24--Deo is a 64-year-old male, referred due to urinary inco ntinence. The patient has a history of stroke about a year ago. The patient states his urinary symptoms have been worsening over the last year. Bladder scan PVR is elevated greater than 300 mL. 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 Information consent for procedure given to the patient. Discussed technical aspects, risks, benefits and alternatives in full. Addressed all of the patient's questions and concerns regarding the procedure. The patient demonstrated knowledge and understanding. They wish to proceed with this procedure. Preparation The patient was prepped in the usual manner. A senior regulatory affairs specialist was present and in the room. Genitalia was prepped with betadine solution in a sterile manner. Procedure Complex Uroflow Patient had no urge to void for Uroflowmetry. Straight cath amount: 300ml Cystometrogram ? Vaginal/rectal catheter type: Rectal First sensation at (mL): 321 mL First desire at (mL): 362 mL Strong desire to void occurred at (mL): 428 mL Strong desire detrusor pressure (cm H2O): 15 Maximum Capacity (mL): 438 mL Voiding Summary Unable to obtain accurate pressure flow study due to patient not urinating into uro cap. Patient voided 100ml with catheters in place. Observed patient using abdominal muscle in order to get himself to void. Catheters removed and patient attempted to void more, but unable. PVR straight cath was approx 350ml Voided volume (mL): 100ml Calculated PVR: 350 mL DO Dry: N/A DO Wet:N/A Stress testing: N/A Prep: The patient was prepped in the usual manner. A senior regulatory affairs specialist was present and in the room. Genitalia was prepped with betadine solution in a sterile manner. 61359-Wrtswodzomupbh w/ AUTO ADJUDICATION SPECIALIST 82209-Ptpawzc-Vtqlfopjhxdu 60049-Ciaz/Urinary Muscle Study 63130-Vtwqq-Pboijgdxg Pressure Test Procedure code (CPT) selection complete Office Meds nitrofurantoin monohydrate/macrocrystals 100 mg capsule Performing Provider: Saud Lazo MD Performing Location: [facility] Administered by: Phyllis Anne RN on 12/31/24 10:29 Dose Route Admin Location Dispensed Lot Number Expiration Date NDC Emergency Medical Dispatcher 100 mg PO 1 cap Assessment & Plan Assessment & Plan Orders: Orders AMB Urodynamics Studies Today N40.1 - Benign prostatic hyperplasia with lower urinary tract symptoms Coding CPT Codes Urodynamic Studies - CPT: 69053-Savjcpiyeketzj w/ AUTO ADJUDICATION SPECIALIST ([id number]) Urodynamic Studies - CPT: 51812-Doemtmo-Pcdzusvfzmeq ([id number]) Urodynamic Studies - CPT: 81721-Ygtq/Urinary Muscle Study ([id number]) Urodynamic Studies - CPT: 21856-Jxccg-Iuulaaxsd Pressure Test ([id number])
== END 2024-12-31 11:23 | disposition home or self-care (01) ==
LOC: HO.HUSH 08:56
PROVIDERS: Visit Provider Urology
DX: N40.1 Benign prostatic hyperplasia with lower urinary tract symptoms (principal)
CPT/HCPCS: 51728; 51741; 51784; 51797

== ENCOUNTER → 2024-12-31 08:55 | Outpatient (BNVA) | payer OTHER, SELFPAY | PROVIDERS: Visit Provider Urology | DX: N40.1 Benign prostatic hyperplasia with lower urinary tract symptoms (principal); R33.9 Retention of urine, unspecified; N31.9 Neuromuscular dysfunction of bladder, unspecified | CPT/HCPCS: 51728; 51741; 51784; 51797; 81003 ==